=== PATIENT | male | born 1980 | race Caucasian/White ===

== ENCOUNTER 2019-11-30 12:38 | Outpatient (REF) | payer MEDICAID, SELFPAY | END 2019-11-30 12:39 | disposition home or self-care (01) | LOC: HO.LAB 12:38 | PROVIDERS: Visit Provider Internal Medicine | DX: Z20.828 Contact with and (suspected) exposure to other viral communicable diseases (principal) | CPT/HCPCS: 36415; 87635 ==

== ENCOUNTER 2020-01-14 13:40 | Emergency (ER) | payer MEDICAID, SELFPAY ==
[2020-01-14 14:29] VITALS: BP 132/75; PULSE 85; RESP 16; TEMP 36.6; O2SAT 99; BMI 25.7
--- NOTE | 2020-01-14 14:49 | ED.URI ---
HPI - URI/Sore Throat General Chief Complaint: Upper Respiratory Symptoms Stated Complaint: sore throat Time Seen by Provider: 01/14/20 14:11 History of Present Illness HPI Narrative: Patient complains of sore throat runny nose for 3 days, no chest pain no cough no difficulty breathing, he does have pain on swallowing but no difficulty swallowing no shortness of breath Related Data Previous Rx's Medication Instructions Recorded ibuprofen 600 mg PO Q6H PRN #14 tab 01/14/20 Allergies Allergy/AdvReac Type Severity Reaction Status Date / Time No Known Allergies Allergy Unverified 11/16/19 14:39 Review of Systems Review of Systems: Review of systems is positive for sore throat and runny nose There is no fever no chills no dizziness no confusion no headache no chest pain no shortness of breath no cough no sputum no nausea no vomiting no diarrhea no rash PMFSH Past Medical History Attestation statement: The following information was validated with the patient. PMFSH Narrative: No relevant medical history Source: nursing notes reviewed Social History Social History Advance Directives: No Advance Directives Information Provided: Yes Physical Exam Vital Signs: Vital Signs: Last Vital Signs Temp 97.9 F 01/14/20 14:29 Pulse 85 01/14/20 14:29 Resp 16 01/14/20 14:29 BP 132/75 01/14/20 14:29 Pulse Ox 99 01/14/20 14:29 Body Mass Index 25.7 Patient is comfortably reacts to and cooperative no acute distress A&O x3 The eyes are clear no redness no discharge the pharynx is clear no redness no exudate no swelling, uvula is midline the voice is normal and there is no drooling The neck there is no adenopathy, neck is supple Chest is clear to auscultation bilaterally no adventitious sounds full equal symmetric sounds Heart no murmurs Abdomen soft nontender Skin no rash Neuro no focal deficit MDM - URI/Sore Throat MDM Narrative Medical decision making narrative: Rapid strep was negative, patient is breathing and swallowing easily and is discharged with diagnosis viral pharyngitis Lab Data Attestation: I reviewed the patient's lab results. Discharge Plan Discharge Clinical Impression: Viral infection Patient Disposition: Home, Self-Care Additional Instructions: Rapid strep test was negative, we will call you if follow-up throat culture changes the results We will call you with a COVID testing results in 2-3 days Return any time any worse condition or concerns Prescriptions: New ibuprofen 600 mg tablet 600 mg PO Q6H PRN (Reason: fever or pain) Qty: 14 RF: 0 Stand Alone Forms: Work/School Release Interventions: ED Discharge Assessment Last Done: 01/14/20 15:35 Discharge Date/Time: 01/14/20 15:35
== END 2020-01-14 15:35 | disposition home or self-care (01) ==
PROVIDERS: Physician Assistant Medical; Emergency Provider Emergency Medicine
DX: B34.9 Viral infection, unspecified (principal); Z20.828 Contact with and (suspected) exposure to other viral communicable diseases
CPT/HCPCS: 87071; 87147; 87880; 99283; U0003

== ENCOUNTER 2020-01-27 14:15 | Emergency (ER) | payer MEDICAID, SELFPAY ==
[2020-01-27 14:58] VITALS: BP 131/62; PULSE 95; RESP 18; TEMP 38.3; O2SAT 98; BMI 26.6
--- NOTE | 2020-01-27 15:22 | ED_ITS ---
HPI - URI/Sore Throat General Chief Complaint: Upper Respiratory Symptoms Stated Complaint: SORETHROAT Time Seen by Provider: 01/27/20 15:15 Source: patient Mode of arrival: ambulatory Limitations: no limitations History of Present Illness HPI Narrative: 39 y/o male presenting with 5 days of body aches, fatigue, sore throat, and nausea and vomiting. He states he also has had a few epsiodes of diarrhea. He was seen here 1.5 weeks ago with his , they both tested negative for COVID. She was diagnosed with Strep but he was negative. He now has worsening sore throat. MD elicited complaint: sore throat Related Data Previous Rx's Medication Instructions Recorded ibuprofen 600 mg PO Q6H PRN #14 tab 01/14/20 amoxicillin 500 mg PO BID #20 tab 01/27/20 ondansetron HCl [Zofran] 4 mg PO Q8H PRN #10 tab 01/27/20 Allergies Allergy/AdvReac Type Severity Reaction Status Date / Time No Known Allergies Allergy Verified 01/27/20 14:58 Review of Systems Review of Systems: Constitutional: + Fever, + Chills ENT/Mouth: + sore throat, No Rhinorrhea, No Swallowing Difficulty Eyes: No Eye Pain, No Swelling, No Redness Cardiovascular: No Chest Pain, No SOB, No Orthopnea, No Edema Respiratory:+ Cough, No Sputum, No Wheezing, No dyspnea Gastrointestinal: + Nausea, No Vomiting, + Diarrhea, No abdominal Pain Genitourinary: No Dysuria, No Urinary Frequency, No Hematuria Musculoskeletal: No joint pain, + Myalgias Skin: No Skin Lesions, No rash Neuro: No Weakness, No Numbness, No Dizziness, + Headache Psych: No Anxiety/Panic, No Depression Heme/Lymph: No Bruising, No Lymphadenopathy Endocrine: No Polyuria, No Polydipsia PMFSH Past Medical History Attestation statement: The following information was validated with the patient. Medical History Healthy adolescent Healthy adult Social History Social History Advance Directives: No Advance Directives Information Provided: Yes Physical Exam Vital Signs: Vital Signs: Last Vital Signs Temp 100.9 F H 01/27/20 14:58 Pulse 95 01/27/20 14:58 Resp 18 01/27/20 14:58 BP 131/62 01/27/20 14:58 Pulse Ox 98 01/27/20 14:58 Body Mass Index 26.6 Appearance: Alert. Oriented X3. No acute distress. Eyes: Pupils equal, round and reactive to light. ENT: Pharynx normal. Neck: Normal inspection. Neck supple. CVS: Normal heart rate and rhythm. Pulses normal. Respiratory: No respiratory distress. Breath sounds normal. Abdomen: Soft and nontender. +BS x4 Skin: Skin warm and dry. Normal skin color. Normal skin turgor. No rashes. Extremities: No lower extremity edema. Neuro: Oriented X 3. No motor deficit. No sensory deficit. Course Course Course Narrative: 39 y/o male here with flu-like symptoms after exposure to his who had strep throat. Exam consistent with strep pharyngitis, will treat empirically given his exposure. He is also requesting additional COVID testing because of his other symptoms. He would like to be discharged and called with the results of the swabs. Stable for d/c. MDM - URI/Sore Throat Differential Diagnosis Differential diagnosis: Likely upper respiratory infection, croup, otitis media, sinusitis, viral infection, bronchitis, influenza and pharyngitis Critical Care Time Critical Care Time Critical Care Time: No Discharge Plan Discharge Clinical Impression: Pharyngitis Qualifiers: Pharyngitis/tonsillitis etiology: unspecified etiology Qualified Code(s): J02.9 - Acute pharyngitis, unspecified Patient Disposition: Home, Self-Care Instructions: Strep Throat (ED) Additional Instructions: You were tested for COVID-19, Influenza, RSV and Strep throat today. We will call you with the results this evening. You exam is consistent with Strep throat so you are being started on antibiotics. Continue to use warm salt water gargles several times per day for sore throat. Use over the counter Cepacol lozenges or Chloraseptic [place] as needed for sore throat. Get a new toothbrush and discard the one you have been using. Take Tylenol and/or Motrin as needed for pain and fevers. Stay hydrated and drink plenty of fluids. Follow up with your doctor on Wednesday. Prescriptions: New amoxicillin 500 mg tablet 500 mg PO BID Qty: 20 RF: 0 ondansetron HCl [Zofran] 4 mg tablet 4 mg PO Q8H PRN (Reason: nausea and vomiting) Qty: 10 RF: 0 No Action ibuprofen 600 mg tablet 600 mg PO Q6H PRN (Reason: fever or pain) Qty: 14 RF: 0 Stand Alone Forms: Work/School Release Interventions: ED Discharge Assessment Last Done: 01/27/20 16:24 Discharge Date/Time: 01/27/20 16:24
[2020-01-27] MEDS: Acetaminophen 325 MG TABLET 975 MG PO (16:08)
[2020-01-27 19:39] LABS: Influenza A PCR NEGATIVE (Negative); Influenza B PCR NEGATIVE (Negative); Resp Syncy Virus RNA Qual PCR NEGATIVE (Negative); SARS COV2 PCR INHOUSE NEGATIVE (Negative)
== END 2020-01-27 16:24 | disposition home or self-care (01) ==
PROVIDERS: Physician Assistant; Emergency Provider Internal Medicine
DX: J02.9 Acute pharyngitis, unspecified (principal); M79.10 Myalgia, unspecified site; R11.2 Nausea with vomiting, unspecified; Z79.899 Other long term (current) drug therapy; Z20.828 Contact with and (suspected) exposure to other viral communicable diseases
CPT/HCPCS: 0241U; 87071; 87147; 87880; 99283

== ENCOUNTER 2020-02-18 02:29 | Inpatient (IN) | payer OTHER, MEDICAID, SELFPAY ==
[2020-02-18] VITALS (9 sets, daily range): BP systolic 102–140; BP diastolic 50–91; PULSE 82–107; RESP 15–18; TEMP 36.1–37.2; O2SAT 97–99; BMI 25.1
--- NOTE | 2020-02-18 03:08 | ED.PSYCH ---
HPI - Psych General Chief Complaint: Psychiatric Symptoms <Michi Gaxiola MD - Last Filed: 02/18/20 06:02> Stated Complaint: Attempt of SI <Michi Gaxiola MD - Last Filed: 02/18/20 06:02> Time Seen by Provider: 02/18/20 03:08 <Michi Gaxiola MD - Last Filed: 02/18/20 06:02> Source: patient <Michi Gaxiola MD - Last Filed: 02/18/20 06:02> Mode of arrival: ambulatory <Michi Gaxiola MD - Last Filed: 02/18/20 06:02> Limitations: no limitations <Michi Gaxiola MD - Last Filed: 02/18/20 06:02> History of Present Illness HPI Narrative: Patient has history of depression for multiple reasons feeling more depressed wanted to kill himself by stabbing had knife with him when he came to the ER. <Michi Gaxiola MD - Last Filed: 02/18/20 06:02> MD complaint: suicidal ideation and feels depressed <Michi Gaxiola MD - Last Filed: 02/18/20 06:02> Duration: constant <Michi Gaxiola MD - Last Filed: 02/18/20 06:02> History of same: Yes <Michi Gaxiola MD - Last Filed: 02/18/20 06:02> Relieving factors: none <Michi Gaxiola MD - Last Filed: 02/18/20 06:02> Exacerbating factors: none <Michi Gaxiola MD - Last Filed: 02/18/20 06:02> Context: recent drug abuse (Cocaine) <Michi Gaxiola MD - Last Filed: 02/18/20 06:02> Associated psychiatric symptoms: none <Michi Gaxiola MD - Last Filed: 02/18/20 06:02> Treatments prior to arrival: none <Michi Gaxiola MD - Last Filed: 02/18/20 06:02> If self harm: admits thoughts of self harm and has plan <Michi Gaxiola MD - Last Filed: 02/18/20 06:02> Related Data Home Medications: Previous Rx's Medication Instructions Recorded ibuprofen 600 mg PO Q6H PRN #14 tab 01/14/20 amoxicillin 500 mg PO BID #20 tab 01/27/20 ondansetron HCl [Zofran] 4 mg PO Q8H PRN #10 tab 01/27/20 <Michi Gaxiola MD - Last Filed: 02/18/20 06:02> Allergies/Adverse Reactions: Allergies Allergy/AdvReac Type Severity Reaction Status Date / Time No Known Allergies Allergy Verified 01/27/20 14:58 <Michi Gaxiola MD - Last Filed: 02/18/20 06:02> Review of Systems Review of Systems: Constitutional : No Fever, No Chills ENT/Mouth : No Ear Pain, No Nasal Congestion, No sore throat Eyes: No Eye Pain, No Swelling, No Redness Cardiovascular : No Chest Pain, No SOB Respiratory : No Cough, No Sputum, No Dyspnea Gastrointestinal : No Nausea, No Vomiting, No Diarrhea, No Hematochezia, No Melena Genitourinary : No Dysuria, No Urinary Frequency, No Hematuria Musculoskeletal : No Myalgias Skin : No Skin Lesions, No rash Neuro : No Weakness, No Numbness, No Paresthesias, No Dizziness, No Headache Psych : positive Anxiety, positive Depression, positive SI Heme/Lymph: No Lymphadenopathy Endocrine : No Polyuria, No Polydipsia <Michi Gaxiola MD - Last Filed: 02/18/20 06:02> Yes all other systems are reviewed and are negative <Michi Gaxiola MD - Last Filed: 02/18/20 06:02> PMFSH Past Medical History Medical History: Medical History Healthy adolescent Healthy adult <Michi Gaxiola MD - Last Filed: 02/18/20 06:02> Social History Social History: Social History Advance Directives: No Advance Directives Information Provided: Yes <Michi Gaxiola MD - Last Filed: 02/18/20 06:02> Physical Exam Vital Signs: Vital Signs: Last Vital Signs Temp 97.0 F 02/18/20 09:56 Pulse 88 02/18/20 09:56 Resp 16 02/18/20 12:00 BP 102/81 02/18/20 09:56 Pulse Ox 99 02/18/20 09:56 Body Mass Index 25.1 <Michi Gaxiola MD - Last Filed: 02/18/20 06:02> Vital Signs: Last Vital Signs Temp 97.0 F 02/18/20 09:56 Pulse 88 02/18/20 09:56 Resp 16 02/18/20 12:00 BP 102/81 02/18/20 09:56 Pulse Ox 99 02/18/20 09:56 Body Mass Index 25.1 <PIERRE Berg - Last Filed: 02/18/20 12:50> Appearance: Alert. Oriented X3. No acute distress. Anxious Eyes: Pupils equal, round and reactive to light. ENT: Pharynx normal. Neck: Normal inspection. Neck supple. CVS: Normal heart rate and rhythm. Pulses normal. Respiratory: No respiratory distress. Breath sounds normal. Abdomen: Soft and nontender. Bowel sounds are present, no mass palpable, no CVA tenderness Skin: Skin warm and dry. Normal skin color. Normal skin turgor. Extremities: No lower extremity edema. Psych: Anxious with depression no suicidal ideation/homicidal ideation at this time no hallucinations delusions Neuro: Oriented X 3. No motor deficit. No sensory deficit. <Michi Gaxiola MD - Last Filed: 02/18/20 06:02> Course Course Course Narrative: 39 y/o male presenting with SI and a clear plan. Seen by N this morning - he will be an inpatient bed search. COVID negative. Utox +cocaine. Labs were not performed. Will order now. <PIERRE Berg - Last Filed: 02/18/20 12:50> MDM - Psych MDM Narrative Medical decision making narrative: Patient with depression with suicidal ideation will consult therapist for psych evaluation <Michi Gaxiola MD - Last Filed: 02/18/20 06:02> Differential Diagnosis Differential diagnosis: Likely acute psychosis, suicidal ideation, bipolar disorder, depression, drug-induced psychotic disorder, substance abuse and schizoaffective disorder <PIERRE Berg - Last Filed: 02/18/20 12:50> Restraints Face to Face Assessment: Face to Face Assessment: Current Situation: After assessment of the patient, a review of the pertinent medical record and a discussion with nursing staff, I feel the patient requires a restrain intervention. Reaction To: [] Medical Condition: [] Behavioral State: [] Continued Need: [] <Michi Gaxiola MD - Last Filed: 02/18/20 06:02> Lab Data Attestation: I reviewed the patient's lab results. <Michi Gaxiola MD - Last Filed: 02/18/20 06:02> Labs: Lab Results 02/18/20 02/18/20 Range/Units 03:19 03:19 Urine Opiates Screen Not Detected (Not Detect) Ur Barbiturates Screen Not Detected (Not Detect) Ur Phencyclidine Scrn Not Detected (Not Detect) Ur Amphetamines Screen Not Detected (Not Detect) U Benzodiazepines Scrn Not Detected (Not Detect) Urine Cocaine Screen POSITIVE H (Not Detect) U Marijuana (THC) Screen Not Detected (Not Detect) COVID-19 (ZAC) Negative (Negative) COVID-19 Clin Com See Note <Michi Gaxiola MD - Last Filed: 02/18/20 06:02> Lab Results 02/18/20 12 Range/Units 03:19 03:19 Urine Opiates Screen Not Detected (Not Detect) Ur Barbiturates Screen Not Detected (Not Detect) Ur Phencyclidine Scrn Not Detected (Not Detect) Ur Amphetamines Screen Not Detected (Not Detect) U Benzodiazepines Scrn Not Detected (Not Detect) Urine Cocaine Screen POSITIVE H (Not Detect) U Marijuana (THC) Screen Not Detected (Not Detect) COVID-19 (ZAC) Negative (Negative) COVID-19 Clin Com See Note <PIERRE Berg - Last Filed: 02/18/20 12:50> Discharge Plan Discharge Clinical Impression: Suicidal ideation Depression Qualifiers: Depression Type: major depressive disorder Major depression recurrence: recurrent Active/Remission status: currently active Major depression episode severity: severe Psychotic features: without psychotic features Qualified Code(s): F33.2 - Major depressive disorder, recurrent severe without psychotic features <Michi Gaxiola MD - Last Filed: 02/18/20 06:02> Prescriptions: No Action ibuprofen 600 mg tablet 600 mg PO Q6H PRN (Reason: fever or pain) Qty: 14 RF: 0 amoxicillin 500 mg tablet 500 mg PO BID Qty: 20 RF: 0 ondansetron HCl [Zofran] 4 mg tablet 4 mg PO Q8H PRN (Reason: nausea and vomiting) Qty: 10 RF: 0 <Michi Gaxiola MD - Last Filed: 02/18/20 06:02>
[2020-02-18] MEDS: LORazepam 1 MG TABLET 2 MG PO (03:14)
--- NOTE | 2020-02-18 03:20 | PC.NURSE ---
Patient just got seen by provider, ordered Ativan 2 mg/administered. N faxed/called/spoke with Arleen/confirmed receipt of referral, no clinician overnight, patient snacked and refreshed, swabbed for covid/sent to lab/pending result, currently in bed resting, will continue to monitor.
[2020-02-18 03:36] LABS: Amphetamine Screen Urine Not Detected (Not Detect); Barbiturates, Urine Not Detected (Not Detect); Benzodiazepines Screen Urine Not Detected (Not Detect); Cannabinoid Screen Urine Not Detected (Not Detect); Cocaine Screen Urine POSITIVE (Not Detect); Opiate Screen Urine Not Detected (Not Detect); Phencyclidine Screen Urine Not Detected (Not Detect)
[2020-02-18 03:39] LABS: COVID-19 Test Negative (Negative)
--- NOTE | 2020-02-18 07:20 | PC.NURSE ---
Report received from BO Hamilton. Pt resting, resp unlabored.
--- NOTE | 2020-02-18 08:50 | PC.NURSE ---
Pt resting, resp unlabored.
--- NOTE | 2020-02-18 11:51 | PC.NURSE ---
Pt resting, resp unlabored.
[2020-02-18 13:14] LABS: Glucose Urine UA NEG (NEG); Leukocyte Esterase Urine NEG (NEG); Nitrite Urine NEG (NEG); PH 5.5 (5.0-8.0); Specific Gravity - Urine >= 1.030 (1.005-1.025); Urine Blood TRACE (NEG); Urine Ketones 40 MG/DL (NEG); Urine Protein TRACE MG/DL (NEG-TRACE)
[2020-02-18 13:16] LABS: Basophils Percent Auto 0.2 % (0-2); Eosinophils Absolute Auto 0.4 X10*3/uL (0.0-0.4); Eosinophils Percent Auto 4.2 % (0-4); Hemoglobin 13.7 g/dl (14.0-18.0); Imm Gran Abs Auto 0.03 X10*3/uL (0.00-0.03); Imm Gran Pct Auto 0.3 % (0.0-0.4); Lymphocytes Absolute Auto 2.8 X10*3/uL (1.2-4.9); Lymphocytes Percent Auto 28.9 % (20-40); Mean Corpuscular HGB Conc 34.3 g/dl (31.0-36.0); Mean Corpuscular Hemoglobin 30.2 pg (27.0-33.0); Mean Corpuscular Volume 88.3 fL (80-98); Mean Platelet Volume 9.8 fL (9.4-12.4); Monocytes Absolute Auto 1.4 X10*3/uL (0.1-1.2); Monocytes Percent Auto 14.9 % (2-11); Neutrophils Percent Auto 51.5 % (45-73); Platelet Count 392 X10*3/uL (160-400); Red Blood Count 4.53 X10*6/uL (4.60-5.80); Red Cell Distribution Width 13.6 % (11.0-16.0); White Blood Count 9.7 X10*3/uL (4.8-10.8)
[2020-02-18 13:18] LABS: MANUAL DIFF FLAG NO
[2020-02-18 13:19] LABS: Appearance Urine CLEAR; Color Urine DARK YELLOW
[2020-02-18 13:34] LABS: Squamous Epithelial Cell Urine TRACE /LPF; WBC Urine 0-2 /HPF (0-4)
[2020-02-18 13:39] LABS: Alanine Aminotransferase 30 U/L (0-40); Albumin Level 4.1 g/dL (3.5-5.0); Alkaline Phosphatase 90 U/L (39-117); Anion Gap 11 (12-20); Aspartate Amino Transferase 40 U/L (5-37); Bilirubin Direct 0.8 mg/dL (0.0-0.5); Blood Urea Nitrogen 19 mg/dL (9-16); Calcium 9.2 mg/dL (8.4-10.2); Carbon Dioxide 29 mmol/L (22-29); Chloride 103 mmol/L (96-108); Creatinine Clr Calc Pharmacy 103.5; Estimated Glomerular Filt Rate > 60; Glucose Random 91 mg/dL (60-115); Potassium 3.9 mmol/l (3.3-5.1); Sodium 139 mmol/L (135-145); Total Protein 7.1 g/dL (6.5-8.0)
--- NOTE | 2020-02-18 16:30 | ECG_ITS ---
Test Reason : MEDCLEAR Blood Pressure : / mmHG Vent. Rate : 084 BPM Atrial Rate : 084 BPM P-R Int : 146 ms QRS Dur : 102 ms QT Int : 388 ms P-R-T Axes : 069 -07 036 degrees QTc Int : 458 ms Normal sinus rhythm RSR' or QR pattern in V1 suggests right ventricular conduction delay Borderline ECG When compared with ECG of 27-FEB-2019 09:09, RSR' pattern in V1 is now Present Referred By: Generic ED Physician Electronically Signed By:MANUELA COREA MD
--- NOTE | 2020-02-18 17:16 | PC.NURSE ---
Pt resting, resp unlabored
--- NOTE | 2020-02-18 19:06 | PC.NURSE ---
Patient in bed, awake, seems resting quietly, watching TV, per report patient slept most part of the day. Appetite good. Hydrating well, in good behavioral control, will continue to monitor.
[2020-02-19 00:26] VITALS: BP 115/72; PULSE 86; RESP 18; TEMP 36.6; O2SAT 98
[2020-02-19 06:50] VITALS: BP 110/61; PULSE 86; RESP 18; TEMP 36.3; O2SAT 100
--- NOTE | 2020-02-19 07:03 | PC.NURSE ---
Report received. Pt currently sleeping, respirations even and unlabored, in no apparent distress. Pt is inpatient bedsearch.
[2020-02-19 09:25] VITALS: BP 94/67; PULSE 66; RESP 16; TEMP 36.6; O2SAT 98
[2020-02-19 16:20] VITALS: BP 132/62; PULSE 69; RESP 18; TEMP 36.6; O2SAT 98
[2020-02-19] MEDS: LORazepam 1 MG TABLET 2 MG PO (16:20)
--- NOTE | 2020-02-19 19:01 | PC.NURSE ---
Report received. Pt asleep at current, no signs of distress, respirations unlabored. Continues to be a section 12 bed search.
--- NOTE | 2020-02-19 23:36 | PC.NURSE ---
Report received. PT is walking around the unit. Calm and cooperative. Inpatient bed search in progress.
--- NOTE | 2020-02-20 | ECG_ITS ---
Test Reason : CP Blood Pressure : / mmHG Vent. Rate : 065 BPM Atrial Rate : 065 BPM P-R Int : 144 ms QRS Dur : 108 ms QT Int : 406 ms P-R-T Axes : 050 018 023 degrees QTc Int : 422 ms Normal sinus rhythm Normal ECG When compared with ECG of 18-FEB-2020 18:34, RSR' pattern in V1 is no longer Present Referred By: Sarabjit Morelos Electronically Signed By:MANUELA COREA MD
[2020-02-20 01:19] VITALS: BP 147/84; PULSE 83; RESP 18; TEMP 36.8; O2SAT 99
--- NOTE | 2020-02-20 08:20 | PC.NURSE ---
faxed to [facility], waiting to hear back about bed placement
[2020-02-20 09:21] LABS: Alanine Aminotransferase 27 U/L (0-40); Albumin Level 3.6 g/dL (3.5-5.0); Alkaline Phosphatase 78 U/L (39-117); Aspartate Amino Transferase 20 U/L (5-37); Bilirubin Direct 0.3 mg/dL (0.0-0.5); Bilirubin Total 0.7 mg/dL (0.0-1.0); Total Protein 6.5 g/dL (6.5-8.0)
[2020-02-20 10:20] VITALS: BP 103/56; PULSE 74; RESP 14; TEMP 36.7; O2SAT 98
--- NOTE | 2020-02-20 11:12 | PC.NURSE ---
Report received from BO Melvin. Patient asleep on bed at this time. Respirations regular and even. Skin PWD. No distress noted. Patient is inpatient bed search, awaiting placement. Patient aware of plan of care. Will continue to monitor.
--- NOTE | 2020-02-20 11:37 | PC.NURSE ---
Notified by [facility] that patient would be going up later today.
--- NOTE | 2020-02-20 13:35 | PC.NURSE ---
Patient becoming agitated stating I want to go upstairs within the next thirty minutes or else we will do this the hard way . Tried to redirect and talk with patient. Patient remains agitated and pacing in front of nurses station. Made provider aware. Offered patient PO Ativan, patient refusing.
--- NOTE | 2020-02-20 13:50 | PC.NURSE ---
Addendum entered by Elisa Salazar 02/20/20 14:19: Contacted [facility] to see if there was any way to escalate admission time. [facility] unable to admit sooner as they are awaiting a discharge. Original Note: Made security aware of patient agitation, updated provider that patient refusing PO medication. Patient continues to pace and making threats to trash this place but as of right now remains in control of behavior and conversating with security. Will continue to closely monitor situation.
--- NOTE | 2020-02-20 15:29 | PC.NURSE ---
Patient is in milieu talking with security. calm and quiet at this time, per report patient is accepted to [facility], will continue to monitor.
--- NOTE | 2020-02-20 16:07 | PC.NURSE ---
Patient got agitated over his admission to [facility], patient wanted to go home, currently in POD with security, expressing his grievances for being too long in the POD, seems in behavioral control, will continue to monitor.
--- NOTE | 2020-02-20 16:22 | MHC.CARE ---
CARE team notified by [facility] nurse that pt is refusing voluntary admission to , and requesting that an MSU be completed to determine whether pt continues to meet IPLOC and is a candidate for an involuntary admission. [facility] kirk was contacted requesting an MSU, which was unable to be done at this time. This policy writer typist met with pt to discuss his initial presentation to the ED and precipitating factors contributing to his endorsement of active suicidal ideation with plan, means, and intent. Pt shared that he has been experiencing increased stress related to covid-19, challenges with employment, and housing instability. Pt denied experiencing thoughts of suicide or wanting to at this time. Pt did continue to endorse experiencing visual hallucinations (seeing shadows) and denied experiencing auditory hallucinations. This policy writer typist spoke with ED physician and provider re: pt's refusal for admission, uncertainty that pt is a candidate for involuntary admission, and possibility of discharging pt from ED as he has been requesting. Request denied and plan continues to be for inpt psych admission. This policy writer typist informed pt that the plan for admission will not change, to which pt responded negatively. Pt threw empty package of crackers, attempted to slam the door to his room in [facility], stripped off his hospital attire and began to yell at posture at staff in his underwear. Security was contacted and a code assist was called to de-escalate pt. Once de-escalated, this policy writer typist spoke with pt about admission and pt is agreeable at this time. working on expediting the admission process at this time.
[2020-02-20] MEDS: LORazepam 1 MG TABLET 2 MG PO (16:23)
--- NOTE | 2020-02-20 17:23 | PC.NURSE ---
Patient agreed to take Ativan 2 mg, administered as ordered, nurse to nurse report completed with , awaiting transfer to currently, will continue to monitor.
[2020-02-20 18:00] VITALS: BP 116/78; PULSE 75; TEMP 36.6
--- NOTE | 2020-02-20 23:03 | PC.ADMIT ---
Patient is a 39 year old single bilingual male admitted as a CV admission to [facility] from the [facility]. He was evaluated by N and deemed in need of IPLOC secondary to depression, SI, poor sleep and substance abuse. Patient has also recently been living in a tent but said to this newspaper writer during his admission that he lived with his mother. Patient was pleasant and cooperative with his admission and signed all of the paperwork and answered questions. He minimized his reason for being here and said he was surprised that he was admitted as an inpatient. Patient did become irritable when this newspaper writer said the medication orders were not in. He walked to his room and said out loud I'm going to go lie down on my bed now so don't wake my ass up . Dr. Morelos put in orders for prn medications. Patient will be on 15 minute safety checks.
[2020-02-21 06:40] VITALS: BP 102/59; PULSE 61; RESP 16; TEMP 37.1; O2SAT 99
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
== END 2020-02-21 15:08 | disposition home or self-care (01) | DRG 754 ==
LOC: HO.ED 02-20 16:48 → HO.PM5 02-20 17:33
PROVIDERS: Physician Assistant; Admitting Provider Psychiatry & Neurology Psychiatry; Emergency Provider Internal Medicine; Visit Provider Psychiatry & Neurology Psychiatry
DX: F32.9 Major depressive disorder, single episode, unspecified (principal); R45.851 Suicidal ideations; F41.9 Anxiety disorder, unspecified; F17.210 Nicotine dependence, cigarettes, uncomplicated; Z20.828 Contact with and (suspected) exposure to other viral communicable diseases; Z71.6 Tobacco abuse counseling
CPT/HCPCS: 36415; 80048; 80076; 80307; 81001; 85025; 87635; 90792; 93005; 99239; 99285

== ENCOUNTER 2020-04-29 10:05 | Outpatient (REF) | payer MEDICAID, SELFPAY | END 2020-04-29 10:06 | disposition home or self-care (01) | LOC: HO.LAB 10:05 | PROVIDERS: Visit Provider Internal Medicine | DX: Z20.822 Contact with and (suspected) exposure to COVID-19 (principal) | CPT/HCPCS: 36415; C9803; U0003; U0005 ==

== ENCOUNTER 2020-06-03 10:13 | Outpatient (REF) | payer MEDICAID, SELFPAY ==
[2020-06-03 12:59] LABS: SARS COV2 PCR INHOUSE NEGATIVE (Negative)
== END 2020-06-03 10:14 | disposition home or self-care (01) ==
LOC: HO.LAB 10:13
PROVIDERS: Visit Provider Internal Medicine
DX: Z20.822 Contact with and (suspected) exposure to COVID-19 (principal)
CPT/HCPCS: C9803; U0003

== ENCOUNTER 2020-06-25 14:20 | Inpatient (IN) | payer OTHER, SELFPAY ==
[2020-06-25 14:26] VITALS: BP 148/86; PULSE 94; RESP 18; TEMP 36.6; O2SAT 100; BMI 23.1
--- NOTE | 2020-06-25 16:48 | ED.GENADULT ---
HPI - General Adult General Chief complaint: Psychiatric Symptoms Stated complaint: crisis Time Seen by Provider: 06/25/20 15:47 Source: patient Mode of arrival: ambulatory History of Present Illness HPI narrative: 39-year-old male with a past medical history of major depressive disorder, presenting to the ED complaining of increased depression, SI and HI with a vague plan x a week. Reports increased aggression, and got into argument with PD last night, denies injury/trauma. Admits loss family member about a month ago, and found out his children are not biologically his this week. Reports cocaine use, denies use in the past 48 hours, denies EtOH. Denies fever, cough, CP/SOB, abdominal pain, nausea/vomiting Onset (ago): day(s) Related Data Home Medications Medication Instructions Recorded Confirmed No Known Home Meds 02/20/20 02/20/20 Allergies Allergy/AdvReac Type Severity Reaction Status Date / Time No Known Allergies Allergy Verified 01/27/20 14:58 Review of Systems Review of Systems: Constitutional: No Fever, No Chills Cardiovascular: No Chest Pain, No SOB Respiratory: No Cough, No Dyspnea Gastrointestinal: No Nausea, No Vomiting, No Abdominal pain Genitourinary: No Dysuria Musculoskeletal: No joint pain, No Myalgias Skin: No Skin Lesions, No rash Neuro: No Weakness, No Headache Psych: No Anxiety/Panic, +Depression, + SI/HI Yes all other systems are reviewed and are negative [facility] Past Medical History Attestation statement: The following information was validated with the patient. Medical History Healthy adolescent Healthy adult Social History Social History Household Members: Family Housing: Apartment Smoking Status: Light tobacco smoker Tobacco Type: Cigarette Packs Per Day: 0.01 Cigarettes Per Day: 0.2 Years Smoked: 27 Substance Use Type: Amphetamines, Crack/Cocaine and Painkillers Advance Directives: No Advance Directives Information Provided: No service: No Sexual orientation: Straight/Heterosexual Physical Exam Vital Signs: Vital Signs: Last Vital Signs Temp 97.8 F 06/25/20 14:26 Pulse 94 06/25/20 14:26 Resp 18 06/25/20 14:26 BP 148/86 H 06/25/20 14:26 Pulse Ox 100 06/25/20 14:26 Body Mass Index 23.1 Const: General: cooperative, healthy appearing, well developed, alert and awake Orientation/consciousness: patient oriented x3 Limitations: no limitations HENMT: Head: Yes normal to inspection Ears: hearing grossly normal bilaterally General nose exam: Normal external nose present Face and sinus: Yes normal facial exam Eyes: General: appearance normal, both eyes and all related structures Pupils: Equal, round and reactive pupils present EOM: EOMs intact bilaterally Neck: Neck: Yes normal visual inspection and Yes no meningeal signs Resp: Effort & Inspection: normal respiratory effort Auscultation: clear to auscultation bilaterally, no rhonchi and no wheezes Cardio: Rate: regular rate Heart sounds: S1 normal heart sound present and S2 normal heart sound present GI: Inspection: Yes normal to inspection Palpation (GI): Soft to palpation, nontender, no guarding and not rigid Skin: Rashes: no rashes Wounds: no wounds Neuro: General: patient oriented x3 and no meningeal signs Cranial nerves: Yes Equal, round and reactive pupils present Extrem: General: Yes normal to inspection Psych: Affect: Sad affect present Thought content: Suicidality present, Homicidality present and Depressive thoughts present Course Course Course Narrative: -1700--ED care transferred to YENI perez pending labs and N consult Medical Decision Making [facility] Narrative Medical decision making narrative: 39-year-old male with a past medical history of major depressive disorder, presenting to the ED complaining of increased depression, SI and HI with a vague plan x a week. On exam VS as, NAD/well-appearing. Will rule out organic causes with labs. Plan: Labs, BHN Consult Lab Data Result diagrams: 06/25/20 16:46 06/25/20 16:46 Discharge Plan Discharge Prescriptions: No Action No Known Home Meds RF: 0
[2020-06-25 17:04] LABS: MANUAL DIFF FLAG NO
[2020-06-25 17:11] LABS: Basophils Percent Auto 0.3 % (0-2); Eosinophils Absolute Auto 0.5 X10*3/uL (0.0-0.4); Eosinophils Percent Auto 4.9 % (0-4); Hematocrit 43.8 % (42-52); Imm Gran Abs Auto 0.03 X10*3/uL (0.00-0.03); Imm Gran Pct Auto 0.3 % (0.0-0.4); Lymphocytes Absolute Auto 2.5 X10*3/uL (1.2-4.9); Mean Corpuscular HGB Conc 34.2 g/dl (31.0-36.0); Mean Corpuscular Hemoglobin 30.7 pg (27.0-33.0); Mean Corpuscular Volume 89.6 fL (80-98); Mean Platelet Volume 9.8 fL (9.4-12.4); Monocytes Absolute Auto 0.6 X10*3/uL (0.1-1.2); Monocytes Percent Auto 6.4 % (2-11); Neutrophils Percent Auto 62.1 % (45-73); Platelet Count 476 X10*3/uL (160-400); Red Blood Count 4.89 X10*6/uL (4.60-5.80); White Blood Count 9.7 X10*3/uL (4.8-10.8)
[2020-06-25 17:35] LABS: Alanine Aminotransferase 35 U/L (0-40); Albumin Level 4.1 g/dL (3.5-5.0); Alkaline Phosphatase 96 U/L (39-117); Anion Gap 12 (12-20); Aspartate Amino Transferase 26 U/L (5-37); Bilirubin Direct 0.4 mg/dL (0.0-0.5); Bilirubin Total 0.8 mg/dL (0.0-1.0); Blood Urea Nitrogen 11 mg/dL (9-16); Calcium 9.6 mg/dL (8.4-10.2); Carbon Dioxide 24 mmol/L (22-29); Chloride 108 mmol/L (96-108); Creatinine Clr Calc Pharmacy 95.7; Estimated Glomerular Filt Rate > 60; Glucose Random 164 mg/dL (60-115); Potassium 4.2 mmol/L (3.3-5.1); Sodium 140 mmol/L (135-145); Total Protein 7.2 g/dL (6.5-8.0)
--- NOTE | 2020-06-25 18:09 | PC.NURSE ---
pt attempting to leave hospital. pt out to sidewalk outside ed. staff and security with pt. pt ambulated independently with steady gait back into er. pt eating dinner at this time calm and cooperative.
--- NOTE | 2020-06-25 18:34 | PC.NURSE ---
faxed to jenelle
[2020-06-25 19:42] VITALS: BP 123/83; PULSE 90; RESP 18; TEMP 36.7; O2SAT 98
--- NOTE | 2020-06-25 20:41 | PC.NURSE ---
PT ambulated to pod was steady gait. Calm and cooperative. SILVANON faxed and called per Ania SORIANO. PT asking for someone to examine an infection in his thumb.
[2020-06-25 20:59] LABS: Amphetamine Screen Urine Not Detected (Not Detect); Barbiturates, Urine Not Detected (Not Detect); Benzodiazepines Screen Urine Not Detected (Not Detect); Cannabinoid Screen Urine Not Detected (Not Detect); Cocaine Screen Urine POSITIVE (Not Detect); Opiate Screen Urine Not Detected (Not Detect); Phencyclidine Screen Urine Not Detected (Not Detect)
--- NOTE | 2020-06-25 23:48 | PC.NURSE ---
BHN at bedside, patient seems engaged, will continue to monitor
[2020-06-26 00:36] LABS: COVID-19 Test Negative (Negative); IDNOW Serial# 9DD0AD1C
[2020-06-26] MEDS: diphenhydrAMINE HCL 25 MG TABLET 50 MG PO (00:38)
[2020-06-26] MEDS: LORazepam 1 MG TABLET 2 MG PO (00:38)
--- NOTE | 2020-06-26 00:43 | PC.NURSE ---
SILVANON completed assessment, patient very compliant, disposition section 12 inpatient bed search, patient and provider aware, psych consult ordered for tomorrow, patient reported being anxious and trouble going to sleep, provider notified Ativan 2 mg po and Benadryl 50 mg PO administered as ordered, pending effect, will continue to monitor
[2020-06-26 00:57] VITALS: BP 135/90; PULSE 85; RESP 18; TEMP 36.3; O2SAT 98
--- NOTE | 2020-06-26 06:58 | PC.NURSE ---
Report recieved. PT currently sleeping, respirations even and unlabored, in no apparent distress. PT is inpatient bedsearch.
[2020-06-26 09:26] VITALS: BP 118/69; PULSE 69; RESP 15; TEMP 36.6; O2SAT 100
--- NOTE | 2020-06-26 14:24 | PC.NURSE ---
psychiatrist in to see pt.
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
[2020-06-26] MEDS: OLANZapine 5 MG TABLET PO (15:20)
--- NOTE | 2020-06-26 17:09 | PC.NURSE ---
Pt resting comfortably in bed at current, no complaints at this time, calm
--- NOTE | 2020-06-26 17:30 | PC.NURSE ---
Valeria, nurse life care planner from [facility] through [facility] called looking for update on pt's disposition. Contact #[phone]
[2020-06-26] MEDS: Amoxicillin/Potassium Clav 875 MG TABLET PO (20:20)
[2020-06-27 06:21] VITALS: BP 98/57; PULSE 62; RESP 17; TEMP 36.6; O2SAT 97
[2020-06-27] MEDS: OLANZapine 5 MG TABLET PO ×2 (09:55→20:07)
[2020-06-27] MEDS: Amoxicillin/Potassium Clav 875 MG TABLET PO ×2 (09:55→20:07)
[2020-06-27] MEDS: Sertraline HCL 25 MG TABLET PO (09:55)
--- NOTE | 2020-06-27 15:53 | PC.NURSE ---
Report received, pt resting in bed at current, no complaints at this time, calm.
--- NOTE | 2020-06-27 18:25 | PC.NURSE ---
Pt asleep at current. No signs of distress. RR even and unlabored.
[2020-06-27 20:50] VITALS: BP 115/49; PULSE 86; RESP 16; TEMP 37.2; O2SAT 98
[2020-06-28 06:28] VITALS: BP 100/51; PULSE 75; RESP 16; TEMP 36.9; O2SAT 99
--- NOTE | 2020-06-28 07:26 | PC.NURSE ---
Report received from BO Hamilton. Pt resting, resp unlabored.
[2020-06-28] MEDS: OLANZapine 5 MG TABLET PO (09:15)
[2020-06-28] MEDS: Amoxicillin/Potassium Clav 875 MG TABLET PO ×2 (09:16→20:22)
[2020-06-28] MEDS: Sertraline HCL 25 MG TABLET PO (09:16)
--- NOTE | 2020-06-28 09:19 | PC.NURSE ---
Pt resting, easily awakened. Reports that he slept last night and feels 'all right' today. Right hand w/ swelling, medicated as ordered. No concerns reported.
[2020-06-28 09:22] VITALS: BP 102/64; PULSE 72; RESP 20; TEMP 37.2; O2SAT 98
--- NOTE | 2020-06-28 12:23 | ECG_ITS ---
Test Reason : MEDCLEARANCE Blood Pressure : / mmHG Vent. Rate : 073 BPM Atrial Rate : 073 BPM P-R Int : 126 ms QRS Dur : 100 ms QT Int : 382 ms P-R-T Axes : 045 000 035 degrees QTc Int : 420 ms Normal sinus rhythm Normal ECG When compared with ECG of 21-FEB-2020 09:47, T wave amplitude has increased in Lateral leads Referred By: Generic ED Physician Electronically Signed By:MANUELA COREA MD
--- NOTE | 2020-06-28 12:24 | PC.NURSE ---
Report given to BO Guzman on M5.
--- NOTE | 2020-06-28 12:33 | PC.NURSE ---
EKG completed, Megan SORIANO [facility] notified.
[2020-06-28 14:00] VITALS: RESP 20
--- NOTE | 2020-06-28 14:33 | PC.NURSE ---
CARE team in to transfer pt to [facility]. Pt aware, and in agreement w/ plan, cooperative w/ care.
[2020-06-28 18:00] VITALS: BP 152/88; PULSE 84; TEMP 36.6
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
[2020-06-29 06:30] VITALS: BP 116/59; PULSE 62; RESP 16; TEMP 37.3; O2SAT 98
[2020-06-29] MEDS: OLANZapine 5 MG TABLET PO (09:07)
[2020-06-29] MEDS: Amoxicillin/Potassium Clav 875 MG TABLET PO ×2 (09:07→20:34)
[2020-06-29] MEDS: Sertraline HCL 25 MG TABLET PO (09:07)
[2020-06-29 10:29] LABS: Estimated Average Glucose 91 mg/dL; Hemoglobin A1c % 4.8 %
[2020-06-29 10:30] LABS: Cholesterol 164 mg/dL; HDL Cholesterol 45 mg/dL; LDL Cholesterol Calculated 98 mg/dl; Triglycerides 105 mg/dL
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
[2020-06-29 16:21] VITALS: BP 156/81; PULSE 86; TEMP 37.2
[2020-06-30 06:00] VITALS: BP 109/67; PULSE 63; RESP 18; TEMP 37; O2SAT 98
[2020-06-30] MEDS: Sertraline HCL 25 MG TABLET PO (08:42)
[2020-06-30] MEDS: Amoxicillin/Potassium Clav 875 MG TABLET PO ×2 (08:42→20:57)
[2020-06-30] MEDS: OLANZapine 5 MG TABLET PO (08:42)
--- NOTE | 2020-06-30 09:06 | HO.PSYCHPN ---
Subjective Subjective Date of Service: 07/01/20 Reason For Visit: SI/HI Interim History: Chart reviewed; case discussed with team. Vitals reviewed: WNL pt sleeping on approach; he woke up to tell designer writer that he is doing well, has no complaints and does not need anything. Pt thanks designer writer for inquiring and says he'd like to go back to sleep nursing reports patient has been in good behavioral control even when staff lost cloths which even ended up being worn by another patient. Staff said pt demonstrated significantly improved coping skills than on prior admissions. Mental Status Exam Mental Status Exam Narrative: Appearance: Appropriate Patient Orientation: Person, Place, Time and Situation Level of Consciousness: Awake and Appropriate Patient Behavior: Appropriate, Cooperative and Good Eye Contact (adequate) Mood Description: Depressed Affect Description: Constricted and Depressed Ability to Follow Directions: Fair Speech Pattern: Clear and Appropriate Thought Process: Intact, Goal Oriented and Linear Thought Content: denies SI/HI; thinking about stability; no AVH Judgement/insight: fair Diagnostics Vital Signs (24Hr): Vital Signs - 24 hr 06/29/20 16:21 06/30/20 06:00 Temperature 99.0 F 98.6 F Pulse Rate 86 63 Respiratory Rate 18 Blood Pressure 156/81 H 109/67 Pulse Oximetry 98 Body Mass Index 23.1 Labs Results: 06/25/20 16:46 06/25/20 16:46 Labs: Laboratory Results - last 48 hr 06/29/20 06/29/20 09:40 09:40 Estimat Average Glucose 91 Hemoglobin A1c % 4.8 Triglycerides 105 Cholesterol 164 LDL Cholesterol, Calc 98 HDL Cholesterol 45 Medications Medications Current Medications Generic Name Dose Route Start Last Admin Trade Name Martinq PRN Reason Stop Dose Admin Acetaminophen 650 mg 06/28/20 15:53 Acetaminophen 325 Mg Tablet PO Q6H PRN Headache/Pain Mild Scale (1-3) Al Hydroxide/Mg Hydroxide 30 ml 06/28/20 15:53 Magnesium Hydrox/Alum Hydrox 30 Ml Oral.Susp PO Q6H PRN Heartburn/Nausea Amoxicillin/Clavulanate Potassium 875 mg 06/26/20 21:00 06/30/20 08:42 Amoxicillin/Potassium Clav 875 Mg Tablet PO 07/06/20 20:59 875 mg BID SON Administration Cyclobenzaprine HCl 10 mg 06/26/20 14:56 Cyclobenzaprine Hcl 10 Mg Tablet PO BID PRN muscle cramps Diphenhydramine HCl 50 mg 06/28/20 15:53 Diphenhydramine Hcl 25 Mg Tablet PO Q4H PRN agitation Haloperidol 5 mg 06/28/20 15:53 Haloperidol 5 Mg Tablet PO Q4H PRN agitation Hydroxyzine HCl 50 mg 06/28/20 15:53 Hydroxyzine Hcl 25 Mg Tablet PO RQ4H PRN Anxiety Lorazepam 2 mg 06/28/20 15:53 Lorazepam 1 Mg Tablet PO Q4H PRN agitation Magnesium Hydroxide 30 ml 06/28/20 15:53 Milk Of Magnesia 30 Ml Oral.Susp PO DAILY PRN Constipation Nicotine 21 mg 06/28/20 15:53 Nicotine 21 Mg Patch.Td24 TRANSDERMA DAILY PRN Nicotine Cessation Nicotine Polacrilex 4 mg 06/28/20 15:53 Nicotine Polacrilex 2 Mg Gum BUCCAL Q2H PRN Nicotine Cravings Olanzapine 5 mg 06/26/20 14:53 06/27/20 20:07 Olanzapine 5 Mg Tablet PO 5 mg DAILY PRN Administration agitation Olanzapine 5 mg 06/26/20 15:00 06/30/20 08:42 Olanzapine 5 Mg Tablet PO 5 mg DAILY SON Administration Sertraline HCl 25 mg 06/27/20 09:00 06/30/20 08:42 Sertraline Hcl 25 Mg Tablet PO 25 mg DAILY SON Administration Trazodone HCl 50 mg 06/28/20 15:53 Trazodone Hcl 50 Mg Tablet PO BEDTIME PRN Insomnia Allergies Allergies Allergy/AdvReac Type Severity Reaction Status Date / Time No Known Allergies Allergy Verified 01/27/20 14:58 Assessment & Plan Impression: depression, ptsd, emotional reactivity and intermittent cocaine abuse SI/HI have now fully resolved and pt says he feels safe, calm and is again future oriented. Pt was started on Olanzapine and Sertraline which he says helped in the past and he feels are helping now pt would like help making plans to move forward and stay stable regarding cocaine use, pt says he mostly stays sober but when emotionally triggered he falls back into it etoh moderate (intermittently 3 beers per day); denies any hx of etoh withdrawal plan: continue olanzapine 5mg qhs for mood stability increase Zoloft to 50mg SW to help with dispo (pt homeless) and prescriber Greater than 50% of the session was spent on counseling and/or coordination of care Reason for contiued inpatient stay Substantial Risk for: med/psych decompensation
[2020-06-30 16:32] VITALS: BP 127/69; PULSE 95; TEMP 36.7
--- NOTE | 2020-06-30 18:44 | PC.NURSE ---
Pt signed a 3 day notice which will be up on 07/03. Pt verbalized understanding of document. Dr. Reeder notified.
[2020-06-30] MEDS: traZODone HCL 50 MG TABLET PO (20:58)
[2020-07-01 07:00] VITALS: BP 114/68; PULSE 70; RESP 16; TEMP 36.5; O2SAT 98
[2020-07-01] MEDS: Sertraline HCL 50 MG TABLET PO (08:56)
[2020-07-01] MEDS: OLANZapine 5 MG TABLET PO (08:56)
[2020-07-01] MEDS: Amoxicillin/Potassium Clav 875 MG TABLET PO ×2 (08:56→20:03)
[2020-07-01 16:25] VITALS: BP 135/59; PULSE 97; TEMP 36.9
--- NOTE | 2020-07-01 16:47 | P.PNPSI_ITS ---
Subjective Subjective Date of Service: 07/01/20 Reason For Visit: SI/HI Subjective Notes: 3 Day (07/03/20) Interim History: Pt reports he is feeling improved, less angry, in control. Review of precipitants to admission. States he has had difficulty with OP team keeping appointments for meds and therapy and when he is not taking medications his mood is difficult to manage. Feeling much improved with medicine re- established, reflective on his reactions to stressors. Discussed his aunts sudden of cardiac event. Describes a strong family history of cardiac iss ues and sudden cardiac . Discussed meeting with PCP to review risk and plan for consult/intervention. Also discussed PCP working with pt on meds if appointments with out pt team are postponed. Pt also discussed needing a referral to a dentist. Medication Compliance: Yes Side effects from medications: No Attending Groups: No Review of Systems Review of Systems Yes all other systems are reviewed and are negative (denies) Psychiatric: Reports depression, Reports irritability, Reports mood swings, Reports homicidal ideation (denies HI plan or intent) and Reports suicidal ideation (denies SI plan or intent) Mental Status Exam Mental Status Exam Patient Appearance: Appropriate Patient Orientation: Person, Place, Time and Situation Level of Consciousness: Alert Patient Behavior: Appropriate, Talkative and Cooperative Mood Description: Withdrawn, Constricted and Depressed Affect Description: Flat Patient Cognition Impaired: No Ability to Follow Directions: Good Speech Pattern: Spontaneous Speech Memory Description: Intact Hallucinations: None Delusions: Not Present Thought Process: Intact Thought Content: positive for Intact Depressive Symptoms: Diff. Making Decisions, Increased Irritability, Unhappiness, Thoughts of /Suicide (denies SI plan or intent), Low Self Esteem and Loss of Energy Judgement: Good Diagnostics Vital Signs (24Hr): Vital Signs - 24 hr 07/01/20 07:00 07/01/20 16:25 Temperature 97.7 F 98.4 F Pulse Rate 70 97 Respiratory Rate 16 Blood Pressure 114/68 135/59 L Pulse Oximetry 98 Body Mass Index 23.1 Labs Results: 06/25/20 16:46 06/25/20 16:46 Medications Medications Current Medications Generic Name Dose Route Start Last Admin Trade Name Freq PRN Reason Stop Dose Admin Acetaminophen 650 mg 06/28/20 15:53 Acetaminophen 325 Mg Tablet PO Q6H PRN Headache/Pain Mild Scale (1-3) Al Hydroxide/Mg Hydroxide 30 ml 06/28/20 15:53 Magnesium Hydrox/Alum Hydrox 30 Ml Oral.Susp PO Q6H PRN Heartburn/Nausea Amoxicillin/Clavulanate Potassium 875 mg 06/26/20 21:00 07/01/20 08:56 Amoxicillin/Potassium Clav 875 Mg Tablet PO 07/06/20 20:59 875 mg BID SON Administration Cyclobenzaprine HCl 10 mg 06/26/20 14:56 Cyclobenzaprine Hcl 10 Mg Tablet PO BID PRN muscle cramps Diphenhydramine HCl 50 mg 06/28/20 15:53 Diphenhydramine Hcl 25 Mg Tablet PO Q4H PRN agitation Haloperidol 5 mg 06/28/20 15:53 Haloperidol 5 Mg Tablet PO Q4H PRN agitation Hydroxyzine HCl 50 mg 06/28/20 15:53 Hydroxyzine Hcl 25 Mg Tablet PO RQ4H PRN Anxiety Lorazepam 2 mg 06/28/20 15:53 Lorazepam 1 Mg Tablet PO Q4H PRN agitation Magnesium Hydroxide 30 ml 06/28/20 15:53 Milk Of Magnesia 30 Ml Oral.Susp PO DAILY PRN Constipation Nicotine 21 mg 06/28/20 15:53 Nicotine 21 Mg Patch.Td24 TRANSDERMA DAILY PRN Nicotine Cessation Nicotine Polacrilex 4 mg 06/28/20 15:53 Nicotine Polacrilex 2 Mg Gum BUCCAL Q2H PRN Nicotine Cravings Olanzapine 5 mg 06/26/20 14:53 06/27/20 20:07 Olanzapine 5 Mg Tablet PO 5 mg DAILY PRN Administration agitation Olanzapine 5 mg 06/26/20 15:00 07/01/20 08:56 Olanzapine 5 Mg Tablet PO 5 mg DAILY SON Administration Sertraline HCl 50 mg 07/01/20 09:00 07/01/20 08:56 Sertraline Hcl 50 Mg Tablet PO 50 mg DAILY SON Administration Trazodone HCl 50 mg 06/28/20 15:53 06/30/20 20:58 Trazodone Hcl 50 Mg Tablet PO 50 mg BEDTIME PRN Administration Insomnia Allergies Allergies Allergy/AdvReac Type Severity Reaction Status Date / Time No Known Allergies Allergy Verified 01/27/20 14:58 Assessment & Plan Assessment & Plan (1) Post traumatic stress disorder (PTSD): Status: Acute Code(s): F43.10 - Post-traumatic stress disorder, unspecified (2) History of depressive symptoms: Status: Acute Code(s): Z86.59 - Personal history of other mental and behavioral disorders (3) Cellulitis of finger: Status: Acute Code(s): L03.019 - Cellulitis of unspecified finger (4) Cocaine-induced mood disorder with depressive symptoms: Status: Acute Code(s): F14.94 - Cocaine use, unspecified with cocaine-induced mood disorder Assessment and Plan: Impression: depression, ptsd, emotional reactivity and intermittent cocaine abuse SI/HI have now fully resolved and pt says he feels safe, calm and is again future oriented. Pt was started on Olanzapine and Sertraline which he says helped in the past and he feels are helping now pt would like help making plans to move forward and stay stable regarding cocaine use, pt says he mostly stays sober but when emotionally triggered he falls back into it etoh moderate (intermittently 3 beers per day); denies any hx of etoh withdrawal plan: continue olanzapine 5mg qhs for mood stability Continue Zoloft 50mg daily SW to help with dispo (pt homeless) and prescriber Greater than 50% of the session was spent on counseling and/or coordination of care Reason for contiued inpatient stay Substantial Risk for: harm to self, harm to others, inability to function and rapid decompensation
[2020-07-01] MEDS: traZODone HCL 50 MG TABLET PO ×2 (21:44→22:33)
[2020-07-02 06:00] VITALS: BP 105/51; PULSE 72; RESP 18; TEMP 36.6; O2SAT 99
[2020-07-02] MEDS: OLANZapine 5 MG TABLET PO (09:54)
[2020-07-02] MEDS: Amoxicillin/Potassium Clav 875 MG TABLET PO ×2 (09:54→20:53)
[2020-07-02] MEDS: Sertraline HCL 50 MG TABLET PO (09:54)
--- NOTE | 2020-07-02 13:54 | HO.PSYCHPN ---
Subjective Subjective Date of Service: 07/02/20 Reason For Visit: SI/HI Subjective Notes: 3 Day Interim History: pt reports he's good and feeling calm and laid back. He denies any SI or HI and says he's feeing ready to go home. Patient plans to stay with friend upon discharge. He feels current medication regimen is working well and wants to continue. Pt reports he's sleeping well and has no other complaints. Medication Compliance: Yes Side effects from medications: Yes Attending Groups: No Mental Status Exam Mental Status Exam Narrative: Appearance: Appropriate Patient Orientation: Person, Place, Time and Situation Level of Consciousness: Alert Patient Behavior: Appropriate, Talkative and Cooperative Mood Description: calm and laid back Affect Description: congruent Patient Cognition Impaired: No Ability to Follow Directions: Good Speech Pattern: Spontaneous Speech Memory Description: Intact Hallucinations: None Delusions: Not Present Thought Process: Intact, linear and goal directed Thought Content: positive for Intact Depressive Symptoms: denies Judgement: fair Diagnostics Vital Signs (24Hr): Vital Signs - 24 hr 07/01/20 16:25 07/02/20 06:00 Temperature 98.4 F 97.9 F Pulse Rate 97 72 Respiratory Rate 18 Blood Pressure 135/59 L 105/51 L Pulse Oximetry 99 Body Mass Index 23.1 Labs Results: 06/25/20 16:46 06/25/20 16:46 Medications Medications Current Medications Generic Name Dose Route Start Last Admin Trade Name Freq PRN Reason Stop Dose Admin Acetaminophen 650 mg 06/28/20 15:53 Acetaminophen 325 Mg Tablet PO Q6H PRN Headache/Pain Mild Scale (1-3) Al Hydroxide/Mg Hydroxide 30 ml 06/28/20 15:53 Magnesium Hydrox/Alum Hydrox 30 Ml Oral.Susp PO Q6H PRN Heartburn/Nausea Amoxicillin/Clavulanate Potassium 875 mg 06/26/20 21:00 07/02/20 09:54 Amoxicillin/Potassium Clav 875 Mg Tablet PO 07/06/20 20:59 875 mg BID SON Administration Cyclobenzaprine HCl 10 mg 06/26/20 14:56 Cyclobenzaprine Hcl 10 Mg Tablet PO BID PRN muscle cramps Diphenhydramine HCl 50 mg 06/28/20 15:53 Diphenhydramine Hcl 25 Mg Tablet PO Q4H PRN agitation Haloperidol 5 mg 06/28/20 15:53 Haloperidol 5 Mg Tablet PO Q4H PRN agitation Hydroxyzine HCl 50 mg 06/28/20 15:53 Hydroxyzine Hcl 25 Mg Tablet PO RQ4H PRN Anxiety Lorazepam 2 mg 06/28/20 15:53 Lorazepam 1 Mg Tablet PO Q4H PRN agitation Magnesium Hydroxide 30 ml 06/28/20 15:53 Milk Of Magnesia 30 Ml Oral.Susp PO DAILY PRN Constipation Nicotine 21 mg 06/28/20 15:53 Nicotine 21 Mg Patch.Td24 TRANSDERMA DAILY PRN Nicotine Cessation Nicotine Polacrilex 4 mg 06/28/20 15:53 Nicotine Polacrilex 2 Mg Gum BUCCAL Q2H PRN Nicotine Cravings Olanzapine 5 mg 06/26/20 14:53 06/27/20 20:07 Olanzapine 5 Mg Tablet PO 5 mg DAILY PRN Administration agitation Olanzapine 5 mg 06/26/20 15:00 07/02/20 09:54 Olanzapine 5 Mg Tablet PO 5 mg DAILY SON Administration Sertraline HCl 50 mg 07/01/20 09:00 07/02/20 09:54 Sertraline Hcl 50 Mg Tablet PO 50 mg DAILY SON Administration Trazodone HCl 50 mg 06/28/20 15:53 07/01/20 22:33 Trazodone Hcl 50 Mg Tablet PO 50 mg BEDTIME PRN Administration Insomnia Allergies Allergies Allergy/AdvReac Type Severity Reaction Status Date / Time No Known Allergies Allergy Verified 01/27/20 14:58 Assessment & Plan Assessment & Plan (1) Post traumatic stress disorder (PTSD): Status: Acute Code(s): F43.10 - Post-traumatic stress disorder, unspecified (2) History of depressive symptoms: Status: Acute Code(s): Z86.59 - Personal history of other mental and behavioral disorders (3) Cellulitis of finger: Status: Acute Code(s): L03.019 - Cellulitis of unspecified finger (4) Cocaine-induced mood disorder with depressive symptoms: Status: Acute Code(s): F14.94 - Cocaine use, unspecified with cocaine-induced mood disorder Assessment and Plan: Impression: depression, ptsd, emotional reactivity and intermittent cocaine abuse SI/HI have now fully resolved and pt says he feels safe, calm and is again future oriented. Pt was started on Olanzapine and Sertraline which he says helped in the past and he feels are helping now pt would like help making plans to move forward and stay stable regarding cocaine use, pt says he mostly stays sober but when emotionally triggered he falls back into it etoh moderate (intermittently 3 beers per day); denies any hx of etoh withdrawal pt signed 3 day and agrees to dc on 07/03. Pt remains in good mood and behavioral control. His depression, SI/HI remain resolved and is future oriented He is not in imminent risk for harm to self or others and does not meet criteria for involuntary commitment. plan: dc on 07/03 continue olanzapine 5mg qhs for mood stability Continue Zoloft 50mg daily SW to help with dispo (pt homeless) and prescriber Greater than 50% of the session was spent on counseling and/or coordination of care Reason for contiued inpatient stay Substantial Risk for: med/psych decompensation
[2020-07-02 18:30] VITALS: BP 123/82; PULSE 94; TEMP 36.9
[2020-07-03 06:00] VITALS: BP 103/50; PULSE 64; RESP 16; TEMP 36.8; O2SAT 100
[2020-07-03] MEDS: OLANZapine 5 MG TABLET PO (08:53)
[2020-07-03] MEDS: Amoxicillin/Potassium Clav 875 MG TABLET PO (08:53)
[2020-07-03] MEDS: Sertraline HCL 50 MG TABLET PO (08:53)
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
== END 2020-07-03 12:00 | disposition home or self-care (01) | DRG 755 ==
LOC: HO.ED 06-28 09:48 → HO.PM5 06-28 14:05
PROVIDERS: Nurse Practitioner Family; Physician Assistant; Admitting Provider Psychiatry & Neurology Psychiatry; Emergency Provider Emergency Medicine Emergency Medical Services; Visit Provider Psychiatry & Neurology Psychiatry
DX: F43.25 Adjustment disorder with mixed disturbance of emotions and conduct (principal); F33.2 Major depressive disorder, recurrent severe without psychotic features; R45.851 Suicidal ideations; R45.850 Homicidal ideations; F14.10 Cocaine abuse, uncomplicated; F17.210 Nicotine dependence, cigarettes, uncomplicated; F43.10 Post-traumatic stress disorder, unspecified; L03.011 Cellulitis of right finger; Z20.822 Contact with and (suspected) exposure to COVID-19; Z71.6 Tobacco abuse counseling; Z79.899 Other long term (current) drug therapy
CPT/HCPCS: 36415; 80048; 80061; 80076; 80307; 83036; 85025; 87635; 93005; 99285; Q0163

== ENCOUNTER 2020-07-10 19:08 | Emergency (ER) | payer MEDICAID, SELFPAY ==
[2020-07-10 19:23] VITALS: BP 144/73; PULSE 81; RESP 18; O2SAT 98; BMI 25.1
--- NOTE | 2020-07-10 19:50 | ED.GENADULT ---
HPI - General Adult General Chief complaint: Dizziness Stated complaint: URINE RETENTION,BILAT FOOT PAIN Time Seen by Provider: 07/10/20 19:50 Source: patient, RN notes reviewed and old records reviewed Mode of arrival: ambulatory Limitations: no limitations History of Present Illness HPI narrative: 39-year-old male here today for multiple different complaints. He reports that he was unable to void, denies any abdominal pain or discomfort. Denies any bloating. Denies constipation, diarrhea, nausea, vomiting, epigastric discomfort, chest pain, PND, SOB with or without exertion. Patient reports that bilateral feet are feeling like there burning, painful. Patient reports that he is feeling weak, denies any drug use or drinking alcohol. He has a history of depressive disorder, PTSD, adjustment mood disorder with mixed disturbance of emotions and conduct. He was discharge from 5 on July 03. He was supposed to follow-up with [facility]. Patient was just started on olanzapine, sertraline, and trazodone. Patient denies any suicidal ideation or any homicidal ideation. Related Data Previous Rx's Medication Instructions Recorded amoxicillin-pot clavulanate 1 tab PO BID #7 tab 07/03/20 cyclobenzaprine 10 mg PO BID PRN #30 tab 07/03/20 olanzapine 5 mg PO DAILY #45 tab MDD 10mg 07/03/20 sertraline 50 mg PO DAILY #30 tab 07/03/20 trazodone 50 mg PO BEDTIME PRN #30 tab 07/03/20 Allergies Allergy/AdvReac Type Severity Reaction Status Date / Time No Known Allergies Allergy Verified 01/27/20 14:58 Review of Systems Review of Systems: Constitutional : No Weight loss, No Fever, No Chills, No Night Sweats, No Fatigue, No Malaise ENT/Mouth : No Hearing loss, No Ear Pain, No Nasal Congestion, No Sinus Pain, No Hoarseness, No sore throat, No Rhinorrhea, No Swallowing Difficulty Eyes: No Eye Pain, No Swelling, No Redness, No Foreign Body, No Discharge, No Vision Changes Cardiovascular : No Chest Pain, No SOB, No Dyspnea on Exertion, No Orthopnea, No Edema, No Palpitations Respiratory : No Cough, No Sputum, No Wheezing, No Smoke Exposure, No Dyspnea Gastrointestinal : No Nausea, No Vomiting, No Diarrhea, No Constipation, No abdominal Pain, No Hematochezia, No Melena Genitourinary : no irregular bleeding, No Dysuria, No Urinary Frequency, No Hematuria, No Urinary Incontinence, No Urgency, No Flank Pain, No Urinary Flow Changes, No Hesitancy Musculoskeletal : No joint pain, No Myalgias, No Joint Swelling Skin : No Skin Lesions, No rash Neuro : No Weakness, Numbness to his feet bilaterally, No Paresthesias, No Loss of Consciousness, No Dizziness, No Headache Psych : No Anxiety/Panic, No Depression, No SI/HI/AH/VH, No Social Issues, Heme/Lymph: No Bruising, No Bleeding,No Lymphadenopathy Endocrine : No Polyuria, No Polydipsia, No Temperature Intolerance Yes all other systems are reviewed and are negative [facility] Past Medical History Medical History Anxiety Healthy adolescent Healthy adult Major depressive disorder Social History Social History Household Members: Family Housing: Apartment Alcohol intake: current Alcohol intake frequency: a few times a week Alcohol type: beer Smoking Status: Light tobacco smoker Tobacco Type: Cigarette Packs Per Day: 0 Cigarettes Per Day: 0 Years Smoked: 15 Second Hand Smoke Exposure: Yes Use of substances other than those prescribed or required for medical reasons: Yes Substance Use Type: Crack/Cocaine Advance Directives: No Advance Directives Information Provided: No service: No Sexual orientation: Straight/Heterosexual Physical Exam Vital Signs: Vital Signs: Last Vital Signs Temp 98.6 F 07/10/20 21:07 Pulse 80 07/10/20 21:07 Resp 20 07/10/20 21:07 BP 133/79 07/10/20 21:07 Pulse Ox 100 07/10/20 21:07 Body Mass Index 25.1 Const: General: healthy appearing, no acute distress and well developed Nutritional Appearance: well nourished Orientation/consciousness: patient oriented x3 Neck: Neck: Yes normal visual inspection, Yes full ROM and Yes trachea midline Thyroid: Thyroid normal Resp: Auscultation: clear to auscultation bilaterally Cardio: Rate: regular rate Rhythm: regular rhythm GI: Inspection: Yes normal to inspection and No distended Palpation (GI): No hepatosplenomegaly present Auscultation: normal bowel sounds Skin: General skin exam: elasticity normal, turgor normal and dry skin Neuro: General: patient oriented x3 Course Course Course Narrative: 39 years old is here today for multiple complaints. He reports to have symptoms of inability to urinate, denies any distension, pain or burning. Denies any fever or chills. Reports to have bilateral feet burning. States that he is feeling tired. Denies any exposure to COVID. Recently discharged from [facility] and new med changed. Denies any CP, PND, SOB with or without exertion. Denies any SI or HI. Will order basic labs. CBC and CMP. Reevaluation(s) Reevaluation #1: Patient reports that he is feeling little overwhelmed, he is stating that he feels very depressed would like to talk to crisis. Will wait for his blood work to come back in will ask crisis team to evaluate him. Patient denies SI or HI. Patient is common cooperative and is agreeable to plan of care. He was given the opportunity to ask questions and all questions answered. Report given to Danielle JAY who will assume further care Medical Decision Making Lab Data Result diagrams: 07/10/20 20:05 07/10/20 20:05 Labs: Lab Results 07/10/20 07/10/20 Range/Units 20:05 20:05 WBC 10.5 (4.8-10.8) X10*3/uL RBC 4.60 (4.60-5.80) X10*6/uL Hgb 14.0 (14.0-18.0) g/dl Hct 41.6 L (42-52) % MCV 90.4 (80-98) fL MCH 30.4 (27.0-33.0) pg MCHC 33.7 (31.0-36.0) g/dl RDW 13.0 (11.0-16.0) % Plt Count 329 D (160-400) X10*3/uL MPV 10.0 (9.4-12.4) fL Immature Gran % (Auto) 0.5 H (0.0-0.4) % Neut % (Auto) 62.7 (45-73) % Lymph % (Auto) 23.6 (20-40) % Hampton % (Auto) 8.4 (2-11) % Eos % (Auto) 4.4 H (0-4) % Baso % (Auto) 0.4 (0-2) % Lymph # (Auto) 2.5 (1.2-4.9) X10*3/uL [place] # (Auto) 0.9 (0.1-1.2) X10*3/uL Eos # (Auto) 0.5 H (0.0-0.4) X10*3/uL Baso # (Auto) 0.0 (0.0-0.2) X10*3/uL Abs Immat Gran (auto) 0.05 H (0.00-0.03) X10*3/uL Absolute Neuts (auto) 6.6 (2.0-8.3) X10*3/uL Absolute Nucleated RBC 0.000 (0.0-0.012) X10*3/uL Nucleated RBC % (auto) 0.0 (0.0-0.2) /100WBC Lipase 17 (8-78) U/L Discharge Plan Discharge Prescriptions: No Action amoxicillin-pot clavulanate 875-125 mg Tablet 1 tab PO BID Qty: 7 RF: 0 cyclobenzaprine 10 mg Tablet 10 mg PO BID PRN (Reason: muscle cramps) Qty: 30 RF: 0 olanzapine 5 mg Tablet 5 mg PO DAILY MDD 10mg Qty: 45 RF: 0 sertraline 50 mg Tablet 50 mg PO DAILY Qty: 30 RF: 0 trazodone 50 mg Tablet 50 mg PO BEDTIME PRN (Reason: Insomnia) Qty: 30 RF: 0
[2020-07-10 20:10] LABS: MANUAL DIFF FLAG NO
[2020-07-10] MEDS: 0.9 % Sodium Chloride 1,000 ML 999 ML IV (20:11)
[2020-07-10 20:12] LABS: Basophils Percent Auto 0.4 % (0-2); Eosinophils Absolute Auto 0.5 X10*3/uL (0.0-0.4); Eosinophils Percent Auto 4.4 % (0-4); Hematocrit 41.6 % (42-52); Imm Gran Abs Auto 0.05 X10*3/uL (0.00-0.03); Imm Gran Pct Auto 0.5 % (0.0-0.4); Lymphocytes Absolute Auto 2.5 X10*3/uL (1.2-4.9); Lymphocytes Percent Auto 23.6 % (20-40); Mean Corpuscular HGB Conc 33.7 g/dl (31.0-36.0); Mean Corpuscular Hemoglobin 30.4 pg (27.0-33.0); Mean Corpuscular Volume 90.4 fL (80-98); Monocytes Absolute Auto 0.9 X10*3/uL (0.1-1.2); Monocytes Percent Auto 8.4 % (2-11); Neutrophils Absolute Auto 6.6 X10*3/uL (2.0-8.3); Neutrophils Percent Auto 62.7 % (45-73); Platelet Count 329 X10*3/uL (160-400); White Blood Count 10.5 X10*3/uL (4.8-10.8)
--- NOTE | 2020-07-10 20:23 | PC.NURSE ---
bladder scan reveals 125ml MLP aware no new orders at this time
[2020-07-10 20:38] LABS: Lipase 17 U/L (8-78)
--- NOTE | 2020-07-10 20:57 | ECG_ITS ---
Test Reason : DIZZINESS Blood Pressure : / mmHG Vent. Rate : 070 BPM Atrial Rate : 070 BPM P-R Int : 140 ms QRS Dur : 100 ms QT Int : 408 ms P-R-T Axes : 044 011 031 degrees QTc Int : 440 ms Normal sinus rhythm Normal ECG When compared with ECG of 28-JUN-2020 12:30, No significant change was found Referred By: Marleni Nava Electronically Signed By:MANUELA COREA MD
[2020-07-10 21:07] VITALS: BP 133/79; PULSE 80; RESP 20; TEMP 37; O2SAT 100
[2020-07-10 21:32] LABS: Glucose Urine UA NEG (NEG); Leukocyte Esterase Urine NEG (NEG); Nitrite Urine NEG (NEG); Specific Gravity - Urine >= 1.030 (1.005-1.025); Urine Blood NEG (NEG); Urine Ketones NEG (NEG); Urine Protein NEG (NEG-TRACE)
[2020-07-10 21:34] LABS: Appearance Urine CLEAR; Color Urine YELLOW
[2020-07-10 22:16] LABS: Influenza A PCR NEGATIVE (Negative); Influenza B PCR NEGATIVE (Negative); Resp Syncy Virus RNA Qual PCR NEGATIVE (Negative); SARS COV2 PCR INHOUSE NEGATIVE (Negative)
[2020-07-10 22:46] LABS: Alanine Aminotransferase 45 U/L (0-40); Albumin Level 3.6 g/dL (3.5-5.0); Alkaline Phosphatase 77 U/L (39-117); Anion Gap 12 (12-20); Aspartate Amino Transferase 24 U/L (5-37); Bilirubin Total 0.3 mg/dL (0.0-1.0); Blood Urea Nitrogen 11 mg/dL (9-16); Calcium 8.3 mg/dL (8.4-10.2); Carbon Dioxide 22 mmol/L (22-29); Chloride 109 mmol/L (96-108); Creatinine Clr Calc Pharmacy 138.5; Estimated Glomerular Filt Rate > 60; Glucose Random 95 mg/dL (60-115); Potassium 3.7 mmol/L (3.3-5.1); Sodium 139 mmol/L (135-145); Total Protein 6.3 g/dL (6.5-8.0)
[2020-07-10 23:01] LABS: Ethanol < 10 mg/dL
[2020-07-10 23:04] LABS: Amphetamine Screen Urine Not Detected (Not Detect); Barbiturates, Urine Not Detected (Not Detect); Benzodiazepines Screen Urine Not Detected (Not Detect); Cannabinoid Screen Urine Not Detected (Not Detect); Cocaine Screen Urine POSITIVE (Not Detect); Opiate Screen Urine Not Detected (Not Detect); Phencyclidine Screen Urine Not Detected (Not Detect)
--- NOTE | 2020-07-10 23:34 | PC.NURSE ---
paperwork faxed to [facility] paperwork received, spoke with Kathe Beard from [facility]
[2020-07-11] MEDS: Cyclobenzaprine HCl 10 MG TABLET PO (00:34)
[2020-07-11] MEDS: traZODone HCL 50 MG TABLET PO (00:34)
--- NOTE | 2020-07-11 07:23 | PC.NURSE ---
Report received from BO Hamilton. Pt resting, resp unlabored.
[2020-07-11] MEDS: OLANZapine 5 MG TABLET PO (08:45)
[2020-07-11] MEDS: Sertraline HCL 50 MG TABLET PO (08:45)
--- NOTE | 2020-07-11 08:48 | PC.NURSE ---
Pt resting, accepted medications, reported that he feels 'down' but does not confirm SI. No other concern reported.
--- NOTE | 2020-07-11 09:06 | PC.NURSE ---
CARE team in to evaluate pt
--- NOTE | 2020-07-11 10:00 | MHC.RECOVRN ---
39 yr old male presented to [facility] [place] ED via EMS on 07/10 due to Pt reports several days of dizziness, b/l leg numbness/ tingling/pain with ambulation, nausea without vomiting, increased anxiety, decreased and difficulty urinating per tire and tube repairer. Upon evaluation and medical clearance, pt reported feeling overwhelmed, depressed, and requested to talk to crisis. Pt subsequently moved to [facility].? T/w met with pt in [facility] to discuss substance use after request from CARE Team. Pt reports cocaine use, IN, 2 bags daily, last use last week as well as alcohol use x forever. Pt states I don't drink to get drunk. However, pt states past ATS admissions for alcohol use disorder. Pt reports longest time in recovery was in senior living for 6.5 years. Pt interested in life coach, AA/NA, and medications for alcohol use disorder. Pt educated regarding medications and would like to have appt at the [facility]. Case discussed with Tammie Maldonado APRN. Plan for life coach to see pt prior to dc. Pt has appt at the [facility] on 07/12 at 2PM. CARE Team aware of plan. Pt provided with resources and t/w contact information if needed.?
--- NOTE | 2020-07-11 10:38 | MHC.RECOVSUP ---
? Reason for consult:Continuity of care o Current location: [facility] o Identified substance use concern: Cocaine and ETOH - Withdrawal - Support ? Intervention: o MAT started or to be started o Community resources provided ? Plan: o Referral to CCC o Follow up tomorrow o Patient awaiting crisis evaluation o Patient to follow up with [facility] after discharge ? Additional information:Pt.given community resources to [facility], patient awaiting to speak to someone from the [facility], to set up MAT for his ETOH abuse.
--- NOTE | 2020-07-11 10:54 | PC.NURSE ---
Pt seen by recovery room rn and by catalyst recovery operator, awaiting dispo, currently resting, resp unlabored.
--- NOTE | 2020-07-11 10:59 | PC.NURSE ---
Pt declining vital signs
--- NOTE | 2020-07-11 11:52 | MHC.CARE ---
0900: Met with pt. Pt arrived at the [facility] for medical issues and reported to the Doctor that he was ?feeling down? and wanted to speak with ?crisis?. Pt was seen in his room, [facility], in the Behavioral Health Pod of the ED. Pt reports a recent [facility] stay and discharge on 07/03 of this year. Pt stated that he has been homeless since his discharge and is feeling down about the homelessness and the dissolving of his relationship with his girlfriend. Pt reports that his cocaine use has something to do with his relationship dissolving. He stated his girlfriend will not allow him back until his drug use stops, pt reports being drug free since his discharge, although his tox screen came back as positive for cocaine. Pt reports missing ?a few? appointments with his counselor or medication provider (he cannot say with certainty who he was to see at those meetings) and attributes missing them to ?Jumping around from place to place? making meeting attendance difficult. He is able to attend zoom meetings, stating that his cell phone can access the internet if needed. Pt reports stated he has an appointment on 08/04, he is unable to state what manner of appointment it is but he did express that he would be attending it.Pt strongly denied any thoughts of harm to self or others. I offered the services of the recovery team, which pt accepted. chinese herbalist Estevan Mcgee was contacted and met with pt setting him up with resources and the on duty Food Vendor. The recommendation from this sign writer letterer or painter is to discharge the pt as he does not meet in patient level of care. Pt?s nurse BO Castro was briefed and is in agreement as is the pt?s provider PIERRE Stewart is also in agreement. Met with pt to discuss the plan and pt is in agreement as well. Pt has an appointment at the [facility] tomorrow at 2:00PM.
[2020-07-11 12:02] VITALS: BP 141/89; PULSE 86; RESP 20; TEMP 36.3; O2SAT 98
--- NOTE | 2020-07-11 12:02 | PC.NURSE ---
Pt awake, showered, affect even, awaiting discharge to be completed, in agreement with plan.
--- NOTE | 2020-07-11 12:11 | PC.NURSE ---
Pt given discharge instructions, verbalized understanding of instructions. No concerns reported pt appears happy to be discharged, is aware and in agreement w/ plan to seek further treatment at the [facility] as arranged by the Recovery Team.
== END 2020-07-11 12:18 | disposition home or self-care (01) ==
PROVIDERS: Nurse Practitioner Family; Emergency Provider Emergency Medicine
DX: F14.10 Cocaine abuse, uncomplicated (principal); Z20.822 Contact with and (suspected) exposure to COVID-19; F32.9 Major depressive disorder, single episode, unspecified; F41.9 Anxiety disorder, unspecified; F43.10 Post-traumatic stress disorder, unspecified; F43.25 Adjustment disorder with mixed disturbance of emotions and conduct; F17.210 Nicotine dependence, cigarettes, uncomplicated; Z79.899 Other long term (current) drug therapy
CPT/HCPCS: 0241U; 36415; 80053; 80307; 80320; 81003; 83690; 85025; 93005; 96360; 99285

== ENCOUNTER 2020-08-29 11:04 | Inpatient (IN) | payer OTHER, SELFPAY ==
--- NOTE | 2020-08-29 | ECG_ITS ---
Test Reason : MED CLEARANCE Blood Pressure : / mmHG Vent. Rate : 076 BPM Atrial Rate : 076 BPM P-R Int : 130 ms QRS Dur : 106 ms QT Int : 392 ms P-R-T Axes : 052 004 059 degrees QTc Int : 441 ms Normal sinus rhythm Normal ECG When compared with ECG of 10-JUL-2020 21:07, No significant change was found Referred By: Beni Stewart Electronically Signed By:MANUELA COREA MD
[2020-08-29 11:26] VITALS: BP 157/82; PULSE 80; RESP 16; TEMP 37.1; O2SAT 100; BMI 25.1
[2020-08-29 11:55] VITALS: BP 192/80; PULSE 81; RESP 16; TEMP 36.7; O2SAT 99
--- NOTE | 2020-08-29 13:10 | ED.PSYCH ---
HPI - Psych General Chief Complaint: Psychiatric Symptoms Stated Complaint: CRISIS Time Seen by Provider: 08/29/20 16:08 Source: patient Mode of arrival: ambulatory Limitations: no limitations History of Present Illness HPI Narrative: Patient presents to the ED for SI statements due to depression. Patient states his plan is to call skill training program coordinator and tell them he has a gun So they can shoot him. patient states he lost his home, is homeless, and his left him. Patient states not compliant on medications. MD complaint: suicidal ideation Related Data Previous Rx's Medication Instructions Recorded cyclobenzaprine 10 mg PO BID PRN #30 tab 07/03/20 olanzapine 5 mg PO DAILY #45 tab MDD 10mg 07/03/20 sertraline 50 mg PO DAILY #30 tab 07/03/20 Allergies Allergy/AdvReac Type Severity Reaction Status Date / Time No Known Allergies Allergy Verified 01/27/20 14:58 Review of Systems Review of Systems: Yes all other systems are reviewed and are negative Constitutional: Constitutional: Reports as per HPI and Reports no additional constitutional complaints Eyes: Eyes: Reports as per HPI and Reports no additional eye complaints ENT: Reports system reviewed and no additional complaints, except as documented and Reports as per HPI Cardiovascular: Cardiovascular: Reports as per HPI and Reports no additional cardiovascular complaints Respiratory: Respiratory: Reports as per HPI and Reports no additional respiratory complaints Gastrointestinal: Gastrointestinal: Reports as per HPI and Reports no additional gastrointestinal complaints Genitourinary: Genitourinary: Reports no additional male genitourinary complaints and Reports as per HPI Musculoskeletal: Musculoskeletal: Reports no additional musculoskeletal complaints and Reports as per HPI Neurologic: Reports system reviewed and no additional complaints, except as documented and Reports as per HPI Psychiatric: Psychiatric: Reports no additional psychiatric complaints and Reports as per HPI PMFSH Past Medical History Medical History Anxiety Healthy adolescent Healthy adult Major depressive disorder Social History Social History Household Members: Family Housing: Apartment Do you presently have visiting nurse or other home services: No Alcohol intake: unknown Patient Tobacco Use Status: Current someday Tobacco user Cigarette Packs Per Day: 0 Cigarettes Per Day: 0 Years Smoked: 15 Smoked in Last 30 Days: Yes Second Hand Smoke Exposure: Yes Use of substances other than those prescribed or required for medical reasons: Yes Substance Use Type: Marijuana Substance Use Frequency: Occasionally Last Used Substance: Days (ago) Any prior treatment program specific to substance use: Yes Advance Directives: Yes Advance Directives Information Provided: No Advance Directives on File: No service: No Sexual orientation: Straight/Heterosexual Physical Exam Vital Signs: Vital Signs: Last Vital Signs Temp 98.0 F 08/29/20 11:55 Pulse 81 08/29/20 11:55 Resp 16 08/29/20 11:55 BP 192/80 H 08/29/20 11:55 Pulse Ox 99 08/29/20 11:55 Body Mass Index 25.1 Const: General: cooperative, healthy appearing, comfortable, no acute distress, well developed, alert, awake and Physically active Orientation/consciousness: patient oriented x3 HENMT: Head: Yes normal to inspection, Yes No palpable skull fracture present, Yes normocephalic, Yes atraumatic and No abrasion Eyes: General: appearance normal, both eyes and all related structures Neck: Neck: Yes normal visual inspection, Yes full ROM, Yes no lymphadenopathy, Yes no meningeal signs, Yes trachea midline, Yes supple and No tender Chest: Chest palpation & inspection: normal inspection of the chest and normal palpation of entire chest wall Resp: Effort & Inspection: normal respiratory effort and able to speak in complete sentences Auscultation: clear to auscultation bilaterally Cardio: Jugular venous distension: no JVD Heart sounds: S1 normal heart sound present and S2 normal heart sound present GI: Inspection: Yes normal to inspection and No abdominal wall ecchymosis Palpation (GI): Soft to palpation, not firm, nontender, no guarding and not rigid : General: No CVA tenderness and Yes no CVA tenderness Back/Spine/Pelvis: Back: no CVA tenderness, No CVA tenderness and No back tenderness Skin: General skin exam: no rashes or lesions noted and elasticity normal Neuro: General: patient oriented x3, gait normal, no meningeal signs and CN's II-XI intact bilaterally Cranial nerves: Yes CN's II-XII intact bilaterally Extrem: General: Yes normal to inspection and Yes full ROM Psych: Appearance: grossly normal, well kempt and not disheveled Course Course Course Narrative: patient have labs drawn and be evaluated by [facility] Reevaluation(s) Reevaluation #1: N evaluated patient and patient is agreeable to voluntary bed search. patient stable Time: 19:01 MDM - Psych MDM Narrative Medical decision making narrative: Depression Lab Data Result diagrams: 08/29/20 13:10 08/29/20 13:10 Labs: Lab Results 08/29/20 08/29/20 08/29/20 Range/Units 12:55 12:55 13:10 WBC 8.4 (4.8-10.8) X10*3/uL RBC 4.79 (4.60-5.80) X10*6/uL Hgb 14.5 (14.0-18.0) g/dl Hct 43.6 (42-52) % MCV 91.0 (80-98) fL MCH 30.3 (27.0-33.0) pg MCHC 33.3 (31.0-36.0) g/dl RDW 13.0 (11.0-16.0) % Plt Count 354 (160-400) X10*3/uL MPV 10.0 (9.4-12.4) fL Immature Gran % (Auto) 0.4 (0.0-0.4) % Neut % (Auto) 62.3 (45-73) % Lymph % (Auto) 21.5 (20-40) % [place] % (Auto) 11.2 H (2-11) % Eos % (Auto) 4.2 H (0-4) % Baso % (Auto) 0.4 (0-2) % Lymph # (Auto) 1.8 (1.2-4.9) X10*3/uL [place] # (Auto) 0.9 (0.1-1.2) X10*3/uL Eos # (Auto) 0.4 (0.0-0.4) X10*3/uL Baso # (Auto) 0.0 (0.0-0.2) X10*3/uL Abs Immat Gran (auto) 0.03 (0.00-0.03) X10*3/uL Absolute Neuts (auto) 5.2 (2.0-8.3) X10*3/uL Absolute Nucleated RBC 0.000 (0.0-0.012) X10*3/uL Nucleated RBC % (auto) 0.0 (0.0-0.2) /100WBC Sodium (135-145) mmol/L Potassium (3.3-5.1) mmol/L Chloride (96-108) mmol/L Carbon Dioxide (22-29) mmol/L Anion Gap (12-20) BUN (9-16) mg/dL Creatinine (0.5-1.4) mg/dL Estim Creat Clear Calc Estimated GFR Random Glucose (60-115) mg/dL Calcium (8.4-10.2) mg/dL Total Bilirubin (0.0-1.0) mg/dL Direct Bilirubin (0.0-0.5) mg/dL AST (5-37) U/L ALT (0-40) U/L Alkaline Phosphatase (39-117) U/L Total Protein (6.5-8.0) g/dL Albumin (3.5-5.0) g/dL Urine Opiates Screen Not Detected (Not Detect) Ur Barbiturates Screen Not Detected (Not Detect) Ur Phencyclidine Scrn Not Detected (Not Detect) Ur Amphetamines Screen Not Detected (Not Detect) U Benzodiazepines Scrn POSITIVE H (Not Detect) Urine Cocaine Screen POSITIVE H (Not Detect) U Marijuana (THC) Screen Not Detected (Not Detect) COVID-19 (ZAC) Negative (Negative) COVID-19 Clin Com See Note 08/29/20 08/29/20 Range/Units 13:10 13:10 WBC (4.8-10.8) X10*3/uL RBC (4.60-5.80) X10*6/uL Hgb (14.0-18.0) g/dl Hct (42-52) % MCV (80-98) fL MCH (27.0-33.0) pg MCHC (31.0-36.0) g/dl RDW (11.0-16.0) % Plt Count (160-400) X10*3/uL MPV (9.4-12.4) fL Immature Gran % (Auto) (0.0-0.4) % Neut % (Auto) (45-73) % Lymph % (Auto) (20-40) % [place] % (Auto) (2-11) % Eos % (Auto) (0-4) % Baso % (Auto) (0-2) % Lymph # (Auto) (1.2-4.9) X10*3/uL [place] # (Auto) (0.1-1.2) X10*3/uL Eos # (Auto) (0.0-0.4) X10*3/uL Baso # (Auto) (0.0-0.2) X10*3/uL Abs Immat Gran (auto) (0.00-0.03) X10*3/uL Absolute Neuts (auto) (2.0-8.3) X10*3/uL Absolute Nucleated RBC (0.0-0.012) X10*3/uL Nucleated RBC % (auto) (0.0-0.2) /100WBC Sodium 143 143 (135-145) mmol/L Potassium 4.0 4.0 (3.3-5.1) mmol/L Chloride 110 H 111 H (96-108) mmol/L Carbon Dioxide 27 27 (22-29) mmol/L Anion Gap 10 L 9 L (12-20) BUN 8 L 9 (9-16) mg/dL Creatinine 0.83 0.84 (0.5-1.4) mg/dL Estim Creat Clear Calc 128.5 126.9 Estimated GFR > 60 > 60 Random Glucose 62 62 (60-115) mg/dL Calcium 9.2 D 9.1 (8.4-10.2) mg/dL Total Bilirubin 0.6 (0.0-1.0) mg/dL Direct Bilirubin 0.2 (0.0-0.5) mg/dL AST 19 (5-37) U/L ALT 25 (0-40) U/L Alkaline Phosphatase 90 (39-117) U/L Total Protein 6.6 (6.5-8.0) g/dL Albumin 3.8 (3.5-5.0) g/dL Urine Opiates Screen (Not Detect) Ur Barbiturates Screen (Not Detect) Ur Phencyclidine Scrn (Not Detect) Ur Amphetamines Screen (Not Detect) U Benzodiazepines Scrn (Not Detect) Urine Cocaine Screen (Not Detect) U Marijuana (THC) Screen (Not Detect) COVID-19 (ZAC) (Negative) COVID-19 Clin Com Discharge Plan Discharge Clinical Impression: Depression Prescriptions: No Action cyclobenzaprine 10 mg Tablet 10 mg PO BID PRN (Reason: muscle cramps) Qty: 30 RF: 0 olanzapine 5 mg Tablet 5 mg PO DAILY MDD 10mg Qty: 45 RF: 0 sertraline 50 mg Tablet 50 mg PO DAILY Qty: 30 RF: 0
[2020-08-29 13:14] LABS: MANUAL DIFF FLAG NO
[2020-08-29 13:23] LABS: Basophils Percent Auto 0.4 % (0-2); Eosinophils Absolute Auto 0.4 X10*3/uL (0.0-0.4); Eosinophils Percent Auto 4.2 % (0-4); Hematocrit 43.6 % (42-52); Hemoglobin 14.5 g/dl (14.0-18.0); Imm Gran Abs Auto 0.03 X10*3/uL (0.00-0.03); Imm Gran Pct Auto 0.4 % (0.0-0.4); Lymphocytes Absolute Auto 1.8 X10*3/uL (1.2-4.9); Lymphocytes Percent Auto 21.5 % (20-40); Mean Corpuscular HGB Conc 33.3 g/dl (31.0-36.0); Mean Corpuscular Hemoglobin 30.3 pg (27.0-33.0); Monocytes Absolute Auto 0.9 X10*3/uL (0.1-1.2); Monocytes Percent Auto 11.2 % (2-11); Neutrophils Absolute Auto 5.2 X10*3/uL (2.0-8.3); Neutrophils Percent Auto 62.3 % (45-73); Platelet Count 354 X10*3/uL (160-400); Red Blood Count 4.79 X10*6/uL (4.60-5.80); White Blood Count 8.4 X10*3/uL (4.8-10.8)
[2020-08-29 13:28] LABS: COVID-19 Test Negative (Negative)
[2020-08-29 13:41] LABS: Anion Gap 10 (12-20); Blood Urea Nitrogen 8 mg/dL (9-16); Calcium 9.2 mg/dL (8.4-10.2); Carbon Dioxide 27 mmol/L (22-29); Chloride 110 mmol/L (96-108); Creatinine Clr Calc Pharmacy 128.5; Estimated Glomerular Filt Rate > 60; Glucose Random 62 mg/dL (60-115); Sodium 143 mmol/L (135-145)
[2020-08-29 13:44] LABS: Amphetamine Screen Urine Not Detected (Not Detect); Barbiturates, Urine Not Detected (Not Detect); Benzodiazepines Screen Urine POSITIVE (Not Detect); Cannabinoid Screen Urine Not Detected (Not Detect); Cocaine Screen Urine POSITIVE (Not Detect); Opiate Screen Urine Not Detected (Not Detect); Phencyclidine Screen Urine Not Detected (Not Detect)
[2020-08-29 13:50] LABS: Alanine Aminotransferase 25 U/L (0-40); Albumin Level 3.8 g/dL (3.5-5.0); Alkaline Phosphatase 90 U/L (39-117); Anion Gap 9 (12-20); Aspartate Amino Transferase 19 U/L (5-37); Bilirubin Direct 0.2 mg/dL (0.0-0.5); Bilirubin Total 0.6 mg/dL (0.0-1.0); Blood Urea Nitrogen 9 mg/dL (9-16); Calcium 9.1 mg/dL (8.4-10.2); Carbon Dioxide 27 mmol/L (22-29); Chloride 111 mmol/L (96-108); Creatinine Clr Calc Pharmacy 126.9; Estimated Glomerular Filt Rate > 60; Glucose Random 62 mg/dL (60-115); Sodium 143 mmol/L (135-145); Total Protein 6.6 g/dL (6.5-8.0)
--- NOTE | 2020-08-29 14:53 | PHA.MEDREC ---
Pharmacy Consult ? Medication Reconciliation Pharmacy has completed the medication reconciliation. Patient has not taken any medication in a month. Knows he is suppose to be Flexeril, Olanzapine, and Sertraline. Lucila Han, PharmD
--- NOTE | 2020-08-29 22:13 | PC.NURSE ---
Patient in his room calm and quiet, no distress observed/reported, patient was on phone for significant amount of time, patient is in good behavioral control, VSS, will continue to monitor.
[2020-08-29 23:11] VITALS: BP 103/53; PULSE 69; RESP 17; TEMP 36.6; O2SAT 99
--- NOTE | 2020-08-30 03:02 | PC.ADMIT ---
Pt is a 39 year old male who came into [facility] [place] [facility] with increased anxiety and depression. Reports recent life changes of no longer being with his girlfriend who recently kicked him out. He is currently homeless and states I have no where to go right now and no support. Denies SI/HI and AH/VH. However, pt stated I don't have any voices yet and did not elaborate further. Non med compliant for approximately 2 months. Reports that his anger has gotten hard to control people can just say the wrong thing and I just snap . Rates depression and anxiety a /10. Tox screen positive for cocaine and benzo's. Pt stated he drinks daily I dont know about less than a pint . Is not displaying any withdrawal symptoms and denies that he is experiencing any. Uses a 1/2 a gram of cocaine every now and then . Pt has had a poor appetite and sleep for a couple months. Medications were verified in the ED. 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 Vitals WNL. CV signed, placed on 5 minute safety checks.
[2020-08-30] MEDS: OLANZapine 5 MG TABLET PO (08:32)
[2020-08-30] MEDS: Sertraline HCL 50 MG TABLET PO (08:33)
[2020-08-30 08:34] VITALS: BP 125/75; PULSE 75; RESP 16; TEMP 36.3; O2SAT 98
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
[2020-08-30 17:50] VITALS: BP 130/77; PULSE 81; RESP 14; TEMP 36.3; O2SAT 98
[2020-08-31 06:00] VITALS: BP 128/91; PULSE 79; RESP 16; TEMP 36.5; O2SAT 98
[2020-08-31] MEDS: Sertraline HCL 50 MG TABLET PO (08:48)
[2020-08-31] MEDS: OLANZapine 5 MG TABLET PO (08:48)
--- NOTE | 2020-08-31 13:55 | P.PNPSI_ITS ---
Subjective Subjective Date of Service: 08/31/20 Reason For Visit: psychiatric crisis Interim History: pt refusing labs this am; refusing to sign legal documents; withdrawn irritable , does report he slept better last night Medication Compliance: Yes Side effects from medications: No Attending Groups: No Review of Systems Review of Systems Yes all other systems are reviewed and are negative Constitutional: Reports as per HPI and Reports no additional constitutional complaints Eyes: Reports as per HPI and Reports no additional eye complaints Reports system reviewed and no additional complaints, except as documented and Reports as per HPI Cardiovascular: Reports as per HPI and Reports no additional cardiovascular complaints Respiratory: Reports as per HPI and Reports no additional respiratory complaints Gastrointestinal: Reports as per HPI and Reports no additional gastrointestinal complaints Genitourinary: Reports no additional male genitourinary complaints and Reports as per HPI Musculoskeletal: Reports no additional musculoskeletal complaints and Reports as per HPI Reports system reviewed and no additional complaints, except as documented, Reports as per HPI and Reports behavioral changes Psychiatric: Reports no additional psychiatric complaints, Reports as per HPI, Reports abnormal sleep pattern, Reports anxiety, Reports behavioral changes, Reports change in appetite, Reports depression, Reports difficulty concentrating, Reports auditory hallucinations, Reports hopelessness, Reports irritability, Reports anhedonia, Reports mood swings, Reports paranoia and Reports suicidal ideation Mental Status Exam Mental Status Exam Patient Appearance: Fatigued and Disheveled Patient Orientation: Person, Place, Time and Situation Level of Consciousness: Awake, Drowsy and Sedated Patient Behavior: Dependent, Passive, Sedated, Avoidant, Fatigued, Distractible and Poor Eye Contact Mood Description: Depressed Affect Description: Flat Patient Cognition Impaired: No Ability to Follow Directions: Fair Speech Pattern: Spontaneous Speech and Soft-Spoken Memory Description: Intact Diagnostics Vital Signs (24Hr): Vital Signs - 24 hr 08/30/20 17:50 08/31/20 06:00 Temperature 97.4 F 97.7 F Pulse Rate 81 79 Respiratory Rate 14 16 Blood Pressure 130/77 128/91 H Pulse Oximetry 98 98 Body Mass Index 25.1 Labs Results: 08/29/20 13:10 08/29/20 13:10 Medications Medications Current Medications Generic Name Dose Route Start Last Admin Trade Name Freq PRN Reason Stop Dose Admin Acetaminophen 650 mg 08/30/20 01:48 Acetaminophen 325 Mg Tablet PO Q6H PRN Headache/Pain Mild Scale (1-3) Al Hydroxide/Mg Hydroxide 30 ml 08/30/20 01:48 Magnesium Hydrox/Alum Hydrox 30 Ml Oral.Susp PO Q6H PRN Heartburn/Nausea Cyclobenzaprine HCl 10 mg 08/29/20 23:13 Cyclobenzaprine Hcl 10 Mg Tablet PO BID PRN muscle cramps Hydroxyzine HCl 25 mg 08/30/20 01:48 Hydroxyzine Hcl 25 Mg Tablet PO BEDTIME PRN Anxiety Magnesium Hydroxide 30 ml 08/30/20 01:48 Milk Of Magnesia 30 Ml Oral.Susp PO DAILY PRN Constipation Olanzapine 5 mg 08/30/20 09:00 08/31/20 08:48 Olanzapine 5 Mg Tablet PO 5 mg DAILY SON Administration Pharmacy Consult 1 each 08/29/20 14:24 Consult Rx Perform Med Rec MISCELLANE ONCE PRN Consult order Sertraline HCl 50 mg 08/30/20 09:00 08/31/20 08:48 Sertraline Hcl 50 Mg Tablet PO 50 mg DAILY SON Administration Trazodone HCl 50 mg 08/30/20 01:48 Trazodone Hcl 50 Mg Tablet PO BEDTIME PRN Insomnia Allergies Allergies Allergy/AdvReac Type Severity Reaction Status Date / Time No Known Allergies Allergy Verified 01/27/20 14:58 Assessment & Plan Assessment & Plan (1) Post traumatic stress disorder (PTSD): Status: Acute Code(s): F43.10 - Post-traumatic stress disorder, unspecified (2) Adjustment disorder with mixed disturbance of emotions and conduct: Status: Acute Code(s): F43.25 - Adjustment disorder with mixed disturbance of emotions and conduct (3) Major depressive disorder: Status: Acute Code(s): F32.9 - Major depressive disorder, single episode, unspecified Assessment and Plan: 39 yo male reports an increase in depressive symptoms with SI an plan to be killed by police. Pt reports he ran out of medications, did not attend out patient appointments, returned to cocaine use along with use of benzodiazepines and from his partner, losing his housing. Plan: Re-start Olanzapine, Sertraline, Flexoril, Trazodone Collateral contacts Referrals for ongoing care Labs: RE-order A1C, Lipids, TSH due to refusing today (4) Cocaine-induced mood disorder with depressive symptoms: Status: Acute Code(s): F14.94 - Cocaine use, unspecified with cocaine-induced mood disorder Greater than 50% of the session was spent on counseling and/or coordination of care Reason for contiued inpatient stay Substantial Risk for: harm to self, inability to function and med/psych de compensation
[2020-08-31 16:48] VITALS: BP 132/77; PULSE 76; TEMP 36.6; O2SAT 99
[2020-09-01] MEDS: Sertraline HCL 50 MG TABLET PO (10:10)
[2020-09-01] MEDS: OLANZapine 5 MG TABLET PO (10:10)
[2020-09-01 10:22] VITALS: BP 150/66; PULSE 103; RESP 16; TEMP 36.3; O2SAT 98
--- NOTE | 2020-09-01 11:28 | HO.PSYCHPN ---
Subjective Subjective Date of Service: 09/01/20 Reason For Visit: psychiatric crisis Interim History: pt refusing labs. signed CV. continues to be irritable, report he slept well last night Review of Systems Review of Systems Yes all other systems are reviewed and are negative Constitutional: Reports as per HPI and Reports no additional constitutional complaints Eyes: Reports as per HPI and Reports no additional eye complaints Reports system reviewed and no additional complaints, except as documented and Reports as per HPI Cardiovascular: Reports as per HPI and Reports no additional cardiovascular complaints Respiratory: Reports as per HPI and Reports no additional respiratory complaints Gastrointestinal: Reports as per HPI and Reports no additional gastrointestinal complaints Genitourinary: Reports no additional male genitourinary complaints and Reports as per HPI Musculoskeletal: Reports no additional musculoskeletal complaints and Reports as per HPI Reports system reviewed and no additional complaints, except as documented, Reports as per HPI and Reports behavioral changes Psychiatric: Reports no additional psychiatric complaints, Reports as per HPI, Reports abnormal sleep pattern, Reports anxiety, Reports behavioral changes, Reports change in appetite, Reports depression, Reports difficulty concentrating, Reports auditory hallucinations, Reports hopelessness, Reports irritability, Reports anhedonia, Reports mood swings, Reports paranoia and Reports suicidal ideation Mental Status Exam Mental Status Exam Patient Appearance: Fatigued and Disheveled Patient Orientation: Person, Place, Time and Situation Level of Consciousness: Awake, Drowsy and Sedated Patient Behavior: Dependent, Passive, Sedated, Avoidant, Fatigued, Distractible and Poor Eye Contact Mood Description: Depressed Affect Description: Flat Patient Cognition Impaired: No Ability to Follow Directions: Fair Speech Pattern: Spontaneous Speech and Soft-Spoken Memory Description: Intact Judgement: Fair Diagnostics Vital Signs (24Hr): Vital Signs - 24 hr 08/31/20 16:48 09/01/20 10:22 Temperature 97.8 F 97.4 F Pulse Rate 76 103 H Respiratory Rate 16 Blood Pressure 132/77 150/66 H Pulse Oximetry 99 98 Body Mass Index 25.1 Labs Results: 08/29/20 13:10 08/29/20 13:10 Medications Medications Current Medications Generic Name Dose Route Start Last Admin Trade Name Freq PRN Reason Stop Dose Admin Acetaminophen 650 mg 08/30/20 01:48 Acetaminophen 325 Mg Tablet PO Q6H PRN Headache/Pain Mild Scale (1-3) Al Hydroxide/Mg Hydroxide 30 ml 08/30/20 01:48 Magnesium Hydrox/Alum Hydrox 30 Ml Oral.Susp PO Q6H PRN Heartburn/Nausea Cyclobenzaprine HCl 10 mg 08/29/20 23:13 Cyclobenzaprine Hcl 10 Mg Tablet PO BID PRN muscle cramps Hydroxyzine HCl 25 mg 08/30/20 01:48 Hydroxyzine Hcl 25 Mg Tablet PO BEDTIME PRN Anxiety Hydroxyzine HCl 10 mg 09/01/20 11:30 Hydroxyzine Hcl 10 Mg Tablet PO BID SON Magnesium Hydroxide 30 ml 08/30/20 01:48 Milk Of Magnesia 30 Ml Oral.Susp PO DAILY PRN Constipation Olanzapine 5 mg 08/30/20 09:00 09/01/20 10:10 Olanzapine 5 Mg Tablet PO 5 mg DAILY SON Administration Pharmacy Consult 1 each 08/29/20 14:24 Consult Rx Perform Med Rec MISCELLANE ONCE PRN Consult order Sertraline HCl 50 mg 08/30/20 09:00 09/01/20 10:10 Sertraline Hcl 50 Mg Tablet PO 50 mg DAILY SON Administration Trazodone HCl 50 mg 08/30/20 01:48 Trazodone Hcl 50 Mg Tablet PO BEDTIME PRN Insomnia Allergies Allergies Allergy/AdvReac Type Severity Reaction Status Date / Time No Known Allergies Allergy Verified 01/27/20 14:58 Assessment & Plan Assessment & Plan (1) Post traumatic stress disorder (PTSD): Status: Acute Code(s): F43.10 - Post-traumatic stress disorder, unspecified (2) Adjustment disorder with mixed disturbance of emotions and conduct: Status: Acute Code(s): F43.25 - Adjustment disorder with mixed disturbance of emotions and conduct (3) Major depressive disorder: Status: Acute Code(s): F32.9 - Major depressive disorder, single episode, unspecified Assessment and Plan: 39 yo male reports an increase in depressive symptoms with SI an plan to be killed by police. Pt reports he ran out of medications, did not attend out patient appointments, returned to cocaine use along with use of benzodiazepines and from his partner, losing his housing. Plan: add hydroxyzine 10 mg BID labs still pending Continue Olanzapine, Sertraline, Flexoril, Trazodone Collateral contacts Referrals for ongoing care (4) Cocaine-induced mood disorder with depressive symptoms: Status: Acute Code(s): F14.94 - Cocaine use, unspecified with cocaine-induced mood disorder Greater than 50% of the session was spent on counseling and/or coordination of care Reason for contiued inpatient stay Substantial Risk for: inability to function, rapid decompensation and med/psych decompensation
[2020-09-01] MEDS: hydrOXYzine HCL 10 MG TABLET PO ×2 (13:18→21:14)
[2020-09-01 13:22] VITALS: BP 114/55; PULSE 74
[2020-09-01 16:54] VITALS: BP 106/52; PULSE 69; TEMP 37.2; O2SAT 98
[2020-09-02 06:00] VITALS: BP 108/51; PULSE 75; TEMP 37; O2SAT 98
[2020-09-02] MEDS: Sertraline HCL 50 MG TABLET PO (08:22)
[2020-09-02] MEDS: OLANZapine 5 MG TABLET PO (08:22)
[2020-09-02] MEDS: hydrOXYzine HCL 10 MG TABLET PO (08:22)
[2020-09-02] MEDS: Acetaminophen 325 MG TABLET 650 MG PO (08:38)
--- NOTE | 2020-09-02 12:25 | P.PNPSI_ITS ---
Subjective Subjective Date of Service: 09/02/20 Reason For Visit: psychiatric crisis Interim History: BPs running low after start of atarax. changed atarax to prn . less irritable, report he slept well last night Review of Systems Review of Systems Yes all other systems are reviewed and are negative Constitutional: Reports as per HPI and Reports no additional constitutional complaints Eyes: Reports as per HPI and Reports no additional eye complaints Reports system reviewed and no additional complaints, except as documented and Reports as per HPI Cardiovascular: Reports as per HPI and Reports no additional cardiovascular complaints Respiratory: Reports as per HPI and Reports no additional respiratory complaints Gastrointestinal: Reports as per HPI and Reports no additional gastrointestinal complaints Genitourinary: Reports no additional male genitourinary complaints and Reports as per HPI Musculoskeletal: Reports no additional musculoskeletal complaints and Reports as per HPI Reports system reviewed and no additional complaints, except as documented, Reports as per HPI and Reports behavioral changes Psychiatric: Reports no additional psychiatric complaints, Reports as per HPI, Reports abnormal sleep pattern, Reports anxiety, Reports behavioral changes, Reports change in appetite, Reports depression, Reports difficulty concentrating, Reports auditory hallucinations, Reports hopelessness, Reports irritability, Reports anhedonia, Reports mood swings, Reports paranoia and Reports suicidal ideation Mental Status Exam Mental Status Exam Patient Appearance: Fatigued and Disheveled Patient Orientation: Person, Place, Time and Situation Level of Consciousness: Awake, Drowsy and Sedated Patient Behavior: Dependent, Passive, Sedated, Avoidant, Fatigued, Distractible and Poor Eye Contact Mood Description: Depressed Affect Description: Flat Patient Cognition Impaired: No Ability to Follow Directions: Fair Speech Pattern: Spontaneous Speech and Soft-Spoken Memory Description: Intact Thought Process: Intact Thought Content: positive for [place] Judgement: Fair Diagnostics Vital Signs (24Hr): Vital Signs - 24 hr 09/01/20 13:22 09/01/20 16:54 09/02/20 06:00 Temperature 99.0 F 98.6 F Pulse Rate 74 69 75 Blood Pressure 114/55 L 106/52 L 108/51 L Pulse Oximetry 98 98 Body Mass Index 25.1 Labs Results: 08/29/20 13:10 08/29/20 13:10 Medications Medications Current Medications Generic Name Dose Route Start Last Admin Trade Name Freq PRN Reason Stop Dose Admin Acetaminophen 650 mg 08/30/20 01:48 09/02/20 08:38 Acetaminophen 325 Mg Tablet PO 650 mg Q6H PRN Administration Headache/Pain Mild Scale (1-3) Al Hydroxide/Mg Hydroxide 30 ml 08/30/20 01:48 Magnesium Hydrox/Alum Hydrox 30 Ml Oral.Susp PO Q6H PRN Heartburn/Nausea Cyclobenzaprine HCl 10 mg 08/29/20 23:13 Cyclobenzaprine Hcl 10 Mg Tablet PO BID PRN muscle cramps Hydroxyzine HCl 25 mg 08/30/20 01:48 Hydroxyzine Hcl 25 Mg Tablet PO BEDTIME PRN Anxiety Hydroxyzine HCl 10 mg 09/01/20 11:30 09/02/20 08:22 Hydroxyzine Hcl 10 Mg Tablet PO 10 mg BID SON Administration Magnesium Hydroxide 30 ml 08/30/20 01:48 Milk Of Magnesia 30 Ml Oral.Susp PO DAILY PRN Constipation Olanzapine 5 mg 08/30/20 09:00 09/02/20 08:22 Olanzapine 5 Mg Tablet PO 5 mg DAILY SON Administration Pharmacy Consult 1 each 08/29/20 14:24 Consult Rx Perform Med Rec MISCELLANE ONCE PRN Consult order Sertraline HCl 50 mg 08/30/20 09:00 09/02/20 08:22 Sertraline Hcl 50 Mg Tablet PO 50 mg DAILY SON Administration Trazodone HCl 50 mg 08/30/20 01:48 Trazodone Hcl 50 Mg Tablet PO BEDTIME PRN Insomnia Allergies Allergies Allergy/AdvReac Type Severity Reaction Status Date / Time No Known Allergies Allergy Verified 01/27/20 14:58 Assessment & Plan Assessment & Plan (1) Post traumatic stress disorder (PTSD): Status: Acute Code(s): F43.10 - Post-traumatic stress disorder, unspecified (2) Adjustment disorder with mixed disturbance of emotions and conduct: Status: Acute Code(s): F43.25 - Adjustment disorder with mixed disturbance of emotions and conduct (3) Major depressive disorder: Status: Acute Code(s): F32.9 - Major depressive disorder, single episode, unspecified Assessment and Plan: 39 yo male reports an increase in depressive symptoms with SI an plan to be ki lled by police. Pt reports he ran out of medications, did not attend out patient appointments, returned to cocaine use along with use of benzodiazepines and from his partner, losing his housing. Plan: change hydroxyzine 10 mg BID PRN labs still pending Continue Olanzapine, Sertraline, Flexoril, Trazodone Collateral contacts Referrals for ongoing care (4) Cocaine-induced mood disorder with depressive symptoms: Status: Acute Code(s): F14.94 - Cocaine use, unspecified with cocaine-induced mood disorder Greater than 50% of the session was spent on counseling and/or coordination of care Reason for contiued inpatient stay Substantial Risk for: harm to self, rapid decompensation and med/psych decompensation
[2020-09-02 16:15] VITALS: BP 117/65; PULSE 93; TEMP 37.2
[2020-09-02] MEDS: hydrOXYzine HCL 25 MG TABLET PO (21:22)
[2020-09-03 06:00] VITALS: BP 115/71; PULSE 66; RESP 16; TEMP 36.9; O2SAT 98
[2020-09-03] MEDS: Sertraline HCL 50 MG TABLET PO (09:23)
[2020-09-03] MEDS: OLANZapine 5 MG TABLET PO (09:23)
--- NOTE | 2020-09-03 13:20 | PC.NURSE ---
Followed up with pt, who reported he no longer wants any NRT.
[2020-09-03 15:50] VITALS: BP 113/65; PULSE 89; TEMP 37.1
--- NOTE | 2020-09-03 17:11 | HO.PSYCHPN ---
Subjective Subjective Date of Service: 09/03/20 Reason For Visit: PTSD, Depression, Adj disorder, cocaine use d/o Subjective Notes: Conditional Voluntary Healthcare Proxy: No Guardianship: No Medical Problems Affecting Mental Status: No Interim History: Myron reports medication regime to be helpful, however, sleep is still not satisfactory. Pt in bed until later afternoon-reports cycle may be reversing and he believes he uses sleep to avoid overthinking. Reports pain, bilateral shoulder area which effects sleep. Medication Compliance: Yes Side effects from medications: No Attending Groups: No Review of Systems Psychiatric: Reports abnormal sleep pattern and Reports depression Mental Status Exam Mental Status Exam Patient Appearance: Disheveled Patient Orientation: Person, Place, Time and Situation Level of Consciousness: Sedated Patient Behavior: Passive, Avoidant and Isolative Mood Description: Depressed Affect Description: Flat Patient Cognition Impaired: No Ability to Follow Directions: Good Speech Pattern: Spontaneous Speech Memory Description: Episodic Impaired Hallucinations: None Delusions: Not Present Thought Process: Distracted Thought Content: positive for [place] and positive for Circumstantial Depressive Symptoms: Insomnia, Diff. Making Decisions, Difficulty Sleeping, Sleeping More Than Usual, Increased Fatigue, Loss of Energy and Difficulty Concentrating Judgement: Fair Diagnostics Vital Signs (24Hr): Vital Signs - 24 hr 09/03/20 06:00 09/03/20 15:50 Temperature 98.4 F 98.8 F Pulse Rate 66 89 Respiratory Rate 16 Blood Pressure 115/71 113/65 Pulse Oximetry 98 Body Mass Index 25.1 Labs Results: 08/29/20 13:10 08/29/20 13:10 Medications Medications Current Medications Generic Name Dose Route Start Last Admin Trade Name Martinq PRN Reason Stop Dose Admin Acetaminophen 650 mg 08/30/20 01:48 09/02/20 08:38 Acetaminophen 325 Mg Tablet PO 650 mg Q6H PRN Administration Headache/Pain Mild Scale (1-3) Al Hydroxide/Mg Hydroxide 30 ml 08/30/20 01:48 Magnesium Hydrox/Alum Hydrox 30 Ml Oral.Susp PO Q6H PRN Heartburn/Nausea Cyclobenzaprine HCl 10 mg 08/29/20 23:13 Cyclobenzaprine Hcl 10 Mg Tablet PO BID PRN muscle cramps Hydroxyzine HCl 25 mg 08/30/20 01:48 09/02/20 21:22 Hydroxyzine Hcl 25 Mg Tablet PO 25 mg BEDTIME PRN Administration Anxiety Hydroxyzine HCl 10 mg 09/02/20 16:33 Hydroxyzine Hcl 10 Mg Tablet PO BID PRN anxiety/restlessness Magnesium Hydroxide 30 ml 08/30/20 01:48 Milk Of Magnesia 30 Ml Oral.Susp PO DAILY PRN Constipation Olanzapine 5 mg 08/30/20 09:00 09/03/20 09:23 Olanzapine 5 Mg Tablet PO 5 mg DAILY SON Administration Pharmacy Consult 1 each 08/29/20 14:24 Consult Rx Perform Med Rec MISCELLANE ONCE PRN Consult order Sertraline HCl 50 mg 08/30/20 09:00 09/03/20 09:23 Sertraline Hcl 50 Mg Tablet PO 50 mg DAILY SON Administration Trazodone HCl 50 mg 08/30/20 01:48 Trazodone Hcl 50 Mg Tablet PO BEDTIME PRN Insomnia Allergies Allergies Allergy/AdvReac Type Severity Reaction Status Date / Time No Known Allergies Allergy Verified 01/27/20 14:58 Assessment & Plan Assessment & Plan (1) Post traumatic stress disorder (PTSD): Status: Acute Code(s): F43.10 - Post-traumatic stress disorder, unspecified (2) Adjustment disorder with mixed disturbance of emotions and conduct: Status: Acute Code(s): F43.25 - Adjustment disorder with mixed disturbance of emotions and conduct (3) Major depressive disorder: Status: Acute Code(s): F32.9 - Major depressive disorder, single episode, unspecified Assessment and Plan: 39 yo male reports an increase in depressive symptoms with SI an plan to be killed by police. Pt reports he ran out of medications, did not attend out patient appointments, returned to cocaine use along with use of benzodiazepines and from his partner, losing his housing. Plan: Continue Olanzapine, Sertraline, Flexoril, Trazodone Collateral contacts Referrals for ongoing care (4) Cocaine-induced mood disorder with depressive symptoms: Status: Acute Code(s): F14.94 - Cocaine use, unspecified with cocaine-induced mood disorder Greater than 50% of the session was spent on counseling and/or coordination of care Patient educated on: medication risk/benefits Informed Consent: further education needed Reason for contiued inpatient stay Substantial Risk for: harm to self, inability to function and rapid decompensation
[2020-09-04 06:00] VITALS: BP 92/55; PULSE 59; RESP 16; TEMP 36.6; O2SAT 98
[2020-09-04] MEDS: Sertraline HCL 50 MG TABLET PO (09:02)
[2020-09-04] MEDS: OLANZapine 5 MG TABLET PO (09:02)
--- NOTE | 2020-09-04 13:32 | P.PNPSI_ITS ---
Subjective Subjective Date of Service: 09/04/20 Reason For Visit: PTSD, Depression, Adj disorder, cocaine use d/o Subjective Notes: Conditional Voluntary Healthcare Proxy: No Guardianship: No Medical Problems Affecting Mental Status: No Interim History: I am not sleeping and I don't know why. Discussed his perceptions of insomnia. Reports no SI, depressive sx still present, attempting to get into a program-called [facility] today and was told there are no availabilities. Hopes he can go to a program in [place] where his brother is currently receiving treatment as brother has given this a positive recommendation. Denies med SE. Medication Compliance: Yes Side effects from medications: No Attending Groups: No Review of Systems Psychiatric: Reports abnormal sleep pattern, Reports depression and Reports suicidal ideation (denies) Mental Status Exam Mental Status Exam Patient Appearance: Appropriate Patient Orientation: Person, Place, Time and Situation Level of Consciousness: Awake and Alert Patient Behavior: Talkative and Good Eye Contact Mood Description: Depressed and Anxious Affect Description: Flat Patient Cognition Impaired: No Ability to Follow Directions: Good Speech Pattern: Spontaneous Speech Memory Description: Episodic Impaired Hallucinations: None Delusions: Not Present Thought Process: Intact and Rumination Thought Content: positive for [place] and positive for Circumstantial Depressive Symptoms: Insomnia, Diff. Making Decisions and Difficulty Sleeping Judgement: Fair Diagnostics Vital Signs (24Hr): Vital Signs - 24 hr 09/03/20 15:50 09/04/20 06:00 Temperature 98.8 F 98 F Pulse Rate 89 59 Respiratory Rate 16 Blood Pressure 113/65 92/55 L Pulse Oximetry 98 Body Mass Index 25.1 Labs Results: 08/29/20 13:10 08/29/20 13:10 Medications Medications Current Medications Generic Name Dose Route Start Last Admin Trade Name Freq PRN Reason Stop Dose Admin Acetaminophen 650 mg 08/30/20 01:48 09/02/20 08:38 Acetaminophen 325 Mg Tablet PO 650 mg Q6H PRN Administration Headache/Pain Mild Scale (1-3) Al Hydroxide/Mg Hydroxide 30 ml 08/30/20 01:48 Magnesium Hydrox/Alum Hydrox 30 Ml Oral.Susp PO Q6H PRN Heartburn/Nausea Cyclobenzaprine HCl 10 mg 08/29/20 23:13 Cyclobenzaprine Hcl 10 Mg Tablet PO BID PRN muscle cramps Hydroxyzine HCl 25 mg 08/30/20 01:48 09/02/20 21:22 Hydroxyzine Hcl 25 Mg Tablet PO 25 mg BEDTIME PRN Administration Anxiety Hydroxyzine HCl 10 mg 09/02/20 16:33 Hydroxyzine Hcl 10 Mg Tablet PO BID PRN anxiety/restlessness Magnesium Hydroxide 30 ml 08/30/20 01:48 Milk Of Magnesia 30 Ml Oral.Susp PO DAILY PRN Constipation Olanzapine 5 mg 08/30/20 09:00 09/04/20 09:02 Olanzapine 5 Mg Tablet PO 5 mg DAILY SON Administration Pharmacy Consult 1 each 08/29/20 14:24 Consult Rx Perform Med Rec MISCELLANE ONCE PRN Consult order Sertraline HCl 50 mg 08/30/20 09:00 09/04/20 09:02 Sertraline Hcl 50 Mg Tablet PO 50 mg DAILY SON Administration Trazodone HCl 50 mg 08/30/20 01:48 Trazodone Hcl 50 Mg Tablet PO BEDTIME PRN Insomnia Allergies Allergies Allergy/AdvReac Type Severity Reaction Status Date / Time No Known Allergies Allergy Verified 01/27/20 14:58 Assessment & Plan Assessment & Plan (1) Post traumatic stress disorder (PTSD): Status: Acute Code(s): F43.10 - Post-traumatic stress disorder, unspecified (2) Adjustment disorder with mixed disturbance of emotions and conduct: Status: Acute Code(s): F43.25 - Adjustment disorder with mixed disturbance of emotions and conduct (3) Major depressive disorder: Status: Acute Code(s): F32.9 - Major depressive disorder, single episode, unspecified Assessment and Plan: 39 yo male reports an increase in depressive symptoms with SI an plan to be killed by police. Pt reports he ran out of medications, did not attend out patient appointments, returned to cocaine use along with use of benzodiazepines and from his partner, losing his housing. Plan: Continue Olanzapine, Sertraline, Flexoril Discontinue Trazodone Remeron 15 mg hs Collateral contacts Referrals for ongoing care (4) Cocaine-induced mood disorder with depressive symptoms: Status: Acute Code(s): F14.94 - Cocaine use, unspecified with cocaine-induced mood disorder Greater than 50% of the session was spent on counseling and/or coordination of care Reason for contiued inpatient stay Substantial Risk for: harm to self, inability to function and rapid decompensation
[2020-09-04 16:21] VITALS: BP 152/67; PULSE 88; RESP 18; TEMP 36.6; O2SAT 99
[2020-09-04] MEDS: Mirtazapine 15 MG TABLET PO (20:45)
[2020-09-05 07:00] VITALS: BMI 25.2
[2020-09-05] MEDS: OLANZapine 5 MG TABLET PO (08:38)
[2020-09-05] MEDS: Sertraline HCL 50 MG TABLET PO (08:38)
[2020-09-05 16:21] VITALS: BP 116/78; PULSE 72; RESP 18; TEMP 36.4; O2SAT 100
--- NOTE | 2020-09-05 16:35 | P.PNPSI_ITS ---
Subjective Subjective Date of Service: 09/05/20 Reason For Visit: PTSD, Depression, Adj disorder, cocaine use d/o Subjective Notes: Conditional Voluntary Healthcare Proxy: No Guardianship: No Medical Problems Affecting Mental Status: No Interim History: Pt reports mirtazapine to be effective in assisting with sleep. He requests to take it earlier as he has experienced daytime sedation. Medication Compliance: Yes Side effects from medications: Yes (daytime sedation from mirtazapine) Attending Groups: No Review of Systems Psychiatric: Reports abnormal sleep pattern and Reports depression Mental Status Exam Mental Status Exam Patient Appearance: Fatigued Patient Orientation: Person, Place, Time and Situation Level of Consciousness: Alert Patient Behavior: Talkative, Asleep, Fatigued and Poor Eye Contact Mood Description: Flat Affect Description: Flat Patient Cognition Impaired: No Ability to Follow Directions: Good Speech Pattern: Spontaneous Speech Memory Description: Episodic Impaired Hallucinations: None Delusions: Not Present Thought Process: Distracted Thought Content: positive for [place] and positive for Circumstantial Depressive Symptoms: Insomnia, Difficulty Sleeping and Difficulty Concentrating Judgement: Fair Diagnostics Vital Signs (24Hr): Vital Signs - 24 hr 09/05/20 16:21 Temperature 97.6 F Pulse Rate 72 Respiratory Rate 18 Blood Pressure 116/78 Pulse Oximetry 100 Body Mass Index 25.2 Labs Results: 08/29/20 13:10 08/29/20 13:10 Medications Medications Current Medications Generic Name Dose Route Start Last Admin Trade Name Freq PRN Reason Stop Dose Admin Acetaminophen 650 mg 08/30/20 01:48 09/02/20 08:38 Acetaminophen 325 Mg Tablet PO 650 mg Q6H PRN Administration Headache/Pain Mild Scale (1-3) Al Hydroxide/Mg Hydroxide 30 ml 08/30/20 01:48 Magnesium Hydrox/Alum Hydrox 30 Ml Oral.Susp PO Q6H PRN Heartburn/Nausea Cyclobenzaprine HCl 10 mg 08/29/20 23:13 Cyclobenzaprine Hcl 10 Mg Tablet PO BID PRN muscle cramps Hydroxyzine HCl 25 mg 08/30/20 01:48 09/02/20 21:22 Hydroxyzine Hcl 25 Mg Tablet PO 25 mg BEDTIME PRN Administration Anxiety Hydroxyzine HCl 10 mg 09/02/20 16:33 Hydroxyzine Hcl 10 Mg Tablet PO BID PRN anxiety/restlessness Magnesium Hydroxide 30 ml 08/30/20 01:48 Milk Of Magnesia 30 Ml Oral.Susp PO DAILY PRN Constipation Mirtazapine 15 mg 09/04/20 21:00 09/04/20 20:45 Mirtazapine 15 Mg Tablet PO 15 mg BEDTIME SON Administration Olanzapine 5 mg 08/30/20 09:00 09/05/20 08:38 Olanzapine 5 Mg Tablet PO 5 mg DAILY SON Administration Pharmacy Consult 1 each 08/29/20 14:24 Consult Rx Perform Med Rec MISCELLANE ONCE PRN Consult order Sertraline HCl 50 mg 08/30/20 09:00 09/05/20 08:38 Sertraline Hcl 50 Mg Tablet PO 50 mg DAILY SON Administration Allergies Allergies Allergy/AdvReac Type Severity Reaction Status Date / Time No Known Allergies Allergy Verified 01/27/20 14:58 Assessment & Plan Assessment & Plan (1) Post traumatic stress disorder (PTSD): Status: Acute Code(s): F43.10 - Post-traumatic stress disorder, unspecified (2) Adjustment disorder with mixed disturbance of emotions and conduct: Status: Acute Code(s): F43.25 - Adjustment disorder with mixed disturbance of emotions and conduct (3) Major depressive disorder: Status: Acute Code(s): F32.9 - Major depressive disorder, single episode, unspecified Assessment and Plan: 39 yo male reports an increase in depressive symptoms with SI an plan to be killed by police. Pt reports he ran out of medications, did not attend out patient appointments, returned to cocaine use along with use of benzodiazepines and from his partner, losing his housing. Plan: Continue Olanzapine, Sertraline, Flexoril Discontinue Trazodone Remeron 15 mg hs-change timing to 1999. Collateral contacts Referrals for ongoing care (4) Cocaine-induced mood disorder with depressive symptoms: Status: Acute Code(s): F14.94 - Cocaine use, unspecified with cocaine-induced mood disorder Greater than 50% of the session was spent on counseling and/or coordination of care Reason for contiued inpatient stay Substantial Risk for: harm to self, inability to function and rapid decompensation
[2020-09-05] MEDS: Mirtazapine 15 MG TABLET PO (20:43)
[2020-09-06 06:00] VITALS: BP 91/52; PULSE 65; RESP 16; TEMP 36.8; O2SAT 98
[2020-09-06] MEDS: Sertraline HCL 50 MG TABLET PO (09:05)
[2020-09-06] MEDS: OLANZapine 5 MG TABLET PO (09:05)
[2020-09-06 16:10] VITALS: BP 116/61; PULSE 64; TEMP 36.9
--- NOTE | 2020-09-06 16:37 | HO.PSYCHPN ---
Subjective Subjective Date of Service: 09/06/20 Reason For Visit: PTSD, Depression, Adj disorder, cocaine use d/o Subjective Notes: Conditional Voluntary Healthcare Proxy: No Guardianship: No Medical Problems Affecting Mental Status: No Interim History: Pt reports sleep has improved with the addition of Mirtazapine. He reports depressive symptoms are resolving. He is more visable in milieu today, out of bed more and interactive with peers and team He is hoping to have a CSS bed by early next week. Team reports on this admission they find him to be more engaged in treatment and motivated for ongoing treatment post discharge Medication Compliance: Yes Side effects from medications: No Attending Groups: Yes Review of Systems Review of Systems Yes all other systems are reviewed and are negative (pt denies sx.) Reports behavioral changes Psychiatric: Reports abnormal sleep pattern (pt reports this is improving with Mirtazapine), Reports behavioral changes, Reports depression and Reports suicidal ideation (denies) Mental Status Exam Mental Status Exam Patient Appearance: Appropriate Patient Orientation: Person, Place and Time Level of Consciousness: Awake and Alert Patient Behavior: Appropriate, Talkative, Cooperative and Good Eye Contact Mood Description: Depressed and Anxious Affect Description: Constricted and Anxious Patient Cognition Impaired: No Ability to Follow Directions: Good Speech Pattern: Clear, Appropriate, Spontaneous Speech and Coherent Memory Description: Episodic Impaired Hallucinations: None Delusions: Not Present Thought Process: Intact Thought Content: positive for Intact and positive for Suicidal Ideation (denies) Depressive Symptoms: Difficulty Sleeping (seems to be resolving with addition of Mirtazapine) Judgement: Fair Diagnostics Vital Signs (24Hr): Vital Signs - 24 hr 09/06/20 06:00 Temperature 98.3 F Pulse Rate 65 Respiratory Rate 16 Blood Pressure 91/52 L Pulse Oximetry 98 Body Mass Index 25.2 Labs Results: 08/29/20 13:10 08/29/20 13:10 Medications Medications Current Medications Generic Name Dose Route Start Last Admin Trade Name Freq PRN Reason Stop Dose Admin Acetaminophen 650 mg 08/30/20 01:48 09/02/20 08:38 Acetaminophen 325 Mg Tablet PO 650 mg Q6H PRN Administration Headache/Pain Mild Scale (1-3) Al Hydroxide/Mg Hydroxide 30 ml 08/30/20 01:48 Magnesium Hydrox/Alum Hydrox 30 Ml Oral.Susp PO Q6H PRN Heartburn/Nausea Cyclobenzaprine HCl 10 mg 08/29/20 23:13 Cyclobenzaprine Hcl 10 Mg Tablet PO BID PRN muscle cramps Hydroxyzine HCl 25 mg 08/30/20 01:48 09/02/20 21:22 Hydroxyzine Hcl 25 Mg Tablet PO 25 mg BEDTIME PRN Administration Anxiety Hydroxyzine HCl 10 mg 09/02/20 16:33 Hydroxyzine Hcl 10 Mg Tablet PO BID PRN anxiety/restlessness Magnesium Hydroxide 30 ml 08/30/20 01:48 Milk Of Magnesia 30 Ml Oral.Susp PO DAILY PRN Constipation Mirtazapine 15 mg 09/05/20 20:00 09/05/20 20:43 Mirtazapine 15 Mg Tablet PO 15 mg 1999 SON Administration Olanzapine 5 mg 08/30/20 09:00 09/06/20 09:05 Olanzapine 5 Mg Tablet PO 5 mg DAILY SON Administration Pharmacy Consult 1 each 08/29/20 14:24 Consult Rx Perform Med Rec MISCELLANE ONCE PRN Consult order Sertraline HCl 50 mg 08/30/20 09:00 09/06/20 09:05 Sertraline Hcl 50 Mg Tablet PO 50 mg DAILY SON Administration Allergies Allergies Allergy/AdvReac Type Severity Reaction Status Date / Time No Known Allergies Allergy Verified 01/27/20 14:58 Assessment & Plan Assessment & Plan (1) Post traumatic stress disorder (PTSD): Status: Acute Code(s): F43.10 - Post-traumatic stress disorder, unspecified (2) Adjustment disorder with mixed disturbance of emotions and conduct: Status: Acute Code(s): F43.25 - Adjustment disorder with mixed disturbance of emotions and conduct (3) Major depressive disorder: Status: Acute Code(s): F32.9 - Major depressive disorder, single episode, unspecified Assessment and Plan: 39 yo male reports an increase in depressive symptoms with SI an plan to be killed by police. Pt reports he ran out of medications, did not attend out patient appointments, returned to cocaine use along with use of benzodiazepines and from his partner, losing his housing. Plan: Continue Olanzapine, Sertraline, Flexoril Discontinue Trazodone Remeron 15 mg hs-change timing to 1999. Collateral contacts Referrals for ongoing care (4) Cocaine-induced mood disorder with depressive symptoms: Status: Acute Code(s): F14.94 - Cocaine use, unspecified with cocaine-induced mood disorder Greater than 50% of the session was spent on counseling and/or coordination of care Patient educated on: medication risk/benefits and therapeutic strategies Informed Consent: understands and further education needed Reason for contiued inpatient stay Substantial Risk for: harm to self, inability to function and rapid decompensation
[2020-09-06] MEDS: Mirtazapine 15 MG TABLET PO (21:15)
[2020-09-07] MEDS: OLANZapine 5 MG TABLET PO (08:43)
[2020-09-07] MEDS: Sertraline HCL 50 MG TABLET PO (08:43)
[2020-09-07 08:57] VITALS: BP 136/72; PULSE 76; RESP 16; TEMP 36.4; O2SAT 98
[2020-09-07 15:55] VITALS: BP 145/67; PULSE 80; TEMP 36.8
--- NOTE | 2020-09-07 19:37 | P.PNPSI_ITS ---
Subjective Subjective Date of Service: 09/07/20 Reason For Visit: PTSD, Depression, Adj disorder, cocaine use d/o Interim History: Patient seen, chart reviewed, case discussed with nursing staff Patient lying in bed on approach, with neatly groomed haircut garzon and mustache. He says his mood is good and denies any SI or hi or a VH. He feels that his depression has resolved. Patient talked about leaving sometime next week, but is also interested in getting into a group program. He does say he has court on Wednesday. he denies any complaints and has no requests Mental Status Exam Mental Status Exam Narrative: Appearance: Appropriate Patient Orientation: Person, Place and Time Level of Consciousness: Awake and Alert Patient Behavior: Appropriate, Cooperative and Good Eye Contact Mood Description: good Affect Description: Congruent Patient Cognition Impaired: No Ability to Follow Directions: Good Speech Pattern: Clear, Appropriate, Spontaneous Speech and Coherent Memory Description: Episodic Impaired Hallucinations: None Delusions: Not Present Thought Process: Intact Thought Content: denies SI/HI Depressive Symptoms: reports resolved Judgment: Fair Diagnostics Vital Signs (24Hr): Vital Signs - 24 hr 09/07/20 08:57 09/07/20 15:55 Temperature 97.5 F 98.2 F Pulse Rate 76 80 Respiratory Rate 16 Blood Pressure 136/72 145/67 H Pulse Oximetry 98 Body Mass Index 25.2 Labs Results: 08/29/20 13:10 08/29/20 13:10 Medications Medications Current Medications Generic Name Dose Route Start Last Admin Trade Name Freq PRN Reason Stop Dose Admin Acetaminophen 650 mg 08/30/20 01:48 09/02/20 08:38 Acetaminophen 325 Mg Tablet PO 650 mg Q6H PRN Administration Headache/Pain Mild Scale (1-3) Al Hydroxide/Mg Hydroxide 30 ml 08/30/20 01:48 Magnesium Hydrox/Alum Hydrox 30 Ml Oral.Susp PO Q6H PRN Heartburn/Nausea Cyclobenzaprine HCl 10 mg 08/29/20 23:13 Cyclobenzaprine Hcl 10 Mg Tablet PO BID PRN muscle cramps Hydroxyzine HCl 25 mg 08/30/20 01:48 09/02/20 21:22 Hydroxyzine Hcl 25 Mg Tablet PO 25 mg BEDTIME PRN Administration Anxiety Hydroxyzine HCl 10 mg 09/02/20 16:33 Hydroxyzine Hcl 10 Mg Tablet PO BID PRN anxiety/restlessness Magnesium Hydroxide 30 ml 08/30/20 01:48 Milk Of Magnesia 30 Ml Oral.Susp PO DAILY PRN Constipation Mirtazapine 15 mg 09/05/20 20:00 09/06/20 21:15 Mirtazapine 15 Mg Tablet PO 15 mg 2000 SON Administration Olanzapine 5 mg 08/30/20 09:00 09/07/20 08:43 Olanzapine 5 Mg Tablet PO 5 mg DAILY SON Administration Pharmacy Consult 1 each 08/29/20 14:24 Consult Rx Perform Med Rec MISCELLANE ONCE PRN Consult order Sertraline HCl 50 mg 08/30/20 09:00 09/07/20 08:43 Sertraline Hcl 50 Mg Tablet PO 50 mg DAILY SON Administration Allergies Allergies Allergy/AdvReac Type Severity Reaction Status Date / Time No Known Allergies Allergy Verified 01/27/20 14:58 Assessment & Plan Assessment & Plan (1) Post traumatic stress disorder (PTSD): Status: Acute Code(s): F43.10 - Post-traumatic stress disorder, unspecified (2) Adjustment disorder with mixed disturbance of emotions and conduct: Status: Acute Code(s): F43.25 - Adjustment disorder with mixed disturbance of emotions and conduct (3) Major depressive disorder: Status: Acute Code(s): F32.9 - Major depressive disorder, single episode, unspecified Assessment and Plan: 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 Pt reports he ran out of medications, did not attend out patient appointments, returned to cocaine use along with use of benzodiazepines and from his partner, losing his housing. Plan: Continue Olanzapine, Sertraline, Flexoril Discontinue Trazodone Remeron 15 mg hs-change timing to 1999. Collateral contacts Referrals for ongoing care (4) Cocaine-induced mood disorder with depressive symptoms: Status: Acute Code(s): F14.94 - Cocaine use, unspecified with cocaine-induced mood disorder Greater than 50% of the session was spent on counseling and/or coordination of care Reason for contiued inpatient stay Substantial Risk for: med/psych decompensation
[2020-09-07] MEDS: Mirtazapine 15 MG TABLET PO (20:50)
[2020-09-08 06:00] VITALS: BP 135/68; PULSE 82; RESP 16; TEMP 36.4; O2SAT 98
[2020-09-08] MEDS: Sertraline HCL 50 MG TABLET PO (08:47)
[2020-09-08] MEDS: OLANZapine 5 MG TABLET PO (08:47)
[2020-09-08] MEDS: hydrOXYzine HCL 10 MG TABLET PO (15:05)
[2020-09-08 16:10] VITALS: BP 127/58; PULSE 97; TEMP 36.3
--- NOTE | 2020-09-08 18:07 | HO.PSYCHPN ---
Subjective Subjective Date of Service: 09/08/20 Reason For Visit: PTSD, Depression, Adj disorder, cocaine use d/o Interim History: Patient seen, chart reviewed, case discussed with nursing staff Patient reports that his mood is ?pretty good;? he continues to deny any SI/HI/AVH and says he's sleeping well. He would like to get into a CSS. Patient denies any medication side effects and would like to continue on current regimen. No requests, no complaints Mental Status Exam Mental Status Exam Narrative: Appearance: Appropriate Patient Orientation: Person, Place and Time Level of Consciousness: Awake and Alert Patient Behavior: Appropriate, Cooperative and Good Eye Contact Mood Description: good Affect Description: Congruent Patient Cognition Impaired: No Ability to Follow Directions: Good Speech Pattern: Clear, Appropriate, Spontaneous Speech and Coherent Memory Description: Episodic Impaired Hallucinations: None Delusions: Not Present Thought Process: Intact Thought Content: denies SI/HI Depressive Symptoms: reports resolved Judgment: Fair Diagnostics Vital Signs (24Hr): Vital Signs - 24 hr 09/08/20 06:00 Temperature 97.5 F Pulse Rate 82 Respiratory Rate 16 Blood Pressure 135/68 Pulse Oximetry 98 Body Mass Index 25.2 Labs Results: 08/29/20 13:10 08/29/20 13:10 Medications Medications Current Medications Generic Name Dose Route Start Last Admin Trade Name Freq PRN Reason Stop Dose Admin Acetaminophen 650 mg 08/30/20 01:48 09/02/20 08:38 Acetaminophen 325 Mg Tablet PO 650 mg Q6H PRN Administration Headache/Pain Mild Scale (1-3) Al Hydroxide/Mg Hydroxide 30 ml 08/30/20 01:48 Magnesium Hydrox/Alum Hydrox 30 Ml Oral.Susp PO Q6H PRN Heartburn/Nausea Cyclobenzaprine HCl 10 mg 08/29/20 23:13 Cyclobenzaprine Hcl 10 Mg Tablet PO BID PRN muscle cramps Hydroxyzine HCl 25 mg 08/30/20 01:48 09/02/20 21:22 Hydroxyzine Hcl 25 Mg Tablet PO 25 mg BEDTIME PRN Administration Anxiety Hydroxyzine HCl 10 mg 09/02/20 16:33 09/08/20 15:05 Hydroxyzine Hcl 10 Mg Tablet PO 10 mg BID PRN Administration anxiety/restlessness Magnesium Hydroxide 30 ml 08/30/20 01:48 Milk Of Magnesia 30 Ml Oral.Susp PO DAILY PRN Constipation Mirtazapine 15 mg 09/05/20 20:00 09/07/20 20:50 Mirtazapine 15 Mg Tablet PO 15 mg 1999 SON Administration Olanzapine 5 mg 08/30/20 09:00 09/08/20 08:47 Olanzapine 5 Mg Tablet PO 5 mg DAILY SON Administration Pharmacy Consult 1 each 08/29/20 14:24 Consult Rx Perform Med Rec MISCELLANE ONCE PRN Consult order Sertraline HCl 50 mg 08/30/20 09:00 09/08/20 08:47 Sertraline Hcl 50 Mg Tablet PO 50 mg DAILY SON Administration Allergies Allergies Allergy/AdvReac Type Severity Reaction Status Date / Time No Known Allergies Allergy Verified 01/27/20 14:58 Assessment & Plan Assessment & Plan (1) Post traumatic stress disorder (PTSD): Status: Acute Code(s): F43.10 - Post-traumatic stress disorder, unspecified (2) Adjustment disorder with mixed disturbance of emotions and conduct: Status: Acute Code(s): F43.25 - Adjustment disorder with mixed disturbance of emotions and conduct (3) Major depressive disorder: Status: Acute Code(s): F32.9 - Major depressive disorder, single episode, unspecified Assessment and Plan: 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 Pt reports he ran out of medications, did not attend out patient appointments, returned to cocaine use along with use of benzodiazepines and from his partner, losing his housing. Plan: Continue Olanzapine, Sertraline, Flexoril Discontinue Trazodone Remeron 15 mg hs-change timing to 1999. Collateral contacts Referrals for ongoing care (4) Cocaine-induced mood disorder with depressive symptoms: Status: Acute Code(s): F14.94 - Cocaine use, unspecified with cocaine-induced mood disorder Greater than 50% of the session was spent on counseling and/or coordination of care Reason for contiued inpatient stay Substantial Risk for: other
[2020-09-08] MEDS: Mirtazapine 15 MG TABLET PO (20:37)
[2020-09-09 06:43] VITALS: BP 112/57; PULSE 71; RESP 18; TEMP 36.8; O2SAT 96
[2020-09-09] MEDS: OLANZapine 5 MG TABLET PO (08:50)
[2020-09-09] MEDS: Sertraline HCL 50 MG TABLET PO (08:50)
--- NOTE | 2020-09-09 15:39 | P.PNPSI_ITS ---
Subjective Subjective Date of Service: 09/09/20 Reason For Visit: PTSD, Depression, Adj disorder, cocaine use d/o Subjective Notes: Conditional Voluntary Healthcare Proxy: No Guardianship: No Medical Problems Affecting Mental Status: No Interim History: Myron awaits admission to [facility] Bed for ongoing treatment. Reports sleep latency is still an issue for him. Once asleep he can maintain sleep but continues to struggle for a few hours to fall asleep. Reports regime to be tolerated, helpful. Denies other symptoms for our focus today. Medication Compliance: Yes Side effects from medications: Yes (sleep latency symptoms) Attending Groups: No Review of Systems Psychiatric: Reports abnormal sleep pattern, Reports anxiety, Reports difficulty concentrating, Reports hopelessness, Reports irritability and Reports suicidal ideation (denies) Mental Status Exam Mental Status Exam Patient Appearance: Fatigued Patient Orientation: Person, Place, Time and Situation Level of Consciousness: Alert Patient Behavior: Appropriate, Talkative, Cooperative, Sedated, Fatigued and Isolative Mood Description: Withdrawn Affect Description: Flat Patient Cognition Impaired: No Ability to Follow Directions: Good Speech Pattern: Spontaneous Speech and Soft-Spoken Memory Description: Intact Hallucinations: None Delusions: Not Present Thought Process: Intact and Distracted Thought Content: positive for [place], positive for Circumstantial and positive for Suicidal Ideation (denies) Depressive Symptoms: Insomnia (latency symptoms) and Difficulty Sleeping Judgement: Good Diagnostics Vital Signs (24Hr): Vital Signs - 24 hr 09/08/20 16:10 09/09/20 06:43 Temperature 97.3 F 98.3 F Pulse Rate 97 71 Respiratory Rate 18 Blood Pressure 127/58 L 112/57 L Pulse Oximetry 96 Body Mass Index 25.2 Labs Results: 08/29/20 13:10 08/29/20 13:10 Medications Medications Current Medications Generic Name Dose Route Start Last Admin Trade Name Freq PRN Reason Stop Dose Admin Acetaminophen 650 mg 08/30/20 01:48 09/02/20 08:38 Acetaminophen 325 Mg Tablet PO 650 mg Q6H PRN Administration Headache/Pain Mild Scale (1-3) Al Hydroxide/Mg Hydroxide 30 ml 08/30/20 01:48 Magnesium Hydrox/Alum Hydrox 30 Ml Oral.Susp PO Q6H PRN Heartburn/Nausea Cyclobenzaprine HCl 10 mg 08/29/20 23:13 Cyclobenzaprine Hcl 10 Mg Tablet PO BID PRN muscle cramps Hydroxyzine HCl 25 mg 08/30/20 01:48 09/02/20 21:22 Hydroxyzine Hcl 25 Mg Tablet PO 25 mg BEDTIME PRN Administration Anxiety Hydroxyzine HCl 10 mg 09/02/20 16:33 09/08/20 15:05 Hydroxyzine Hcl 10 Mg Tablet PO 10 mg BID PRN Administration anxiety/restlessness Magnesium Hydroxide 30 ml 08/30/20 01:48 Milk Of Magnesia 30 Ml Oral.Susp PO DAILY PRN Constipation Mirtazapine 15 mg 09/05/20 20:00 09/08/20 20:37 Mirtazapine 15 Mg Tablet PO 15 mg 2000 SON Administration Olanzapine 5 mg 08/30/20 09:00 09/09/20 08:50 Olanzapine 5 Mg Tablet PO 5 mg DAILY SON Administration Pharmacy Consult 1 each 08/29/20 14:24 Consult Rx Perform Med Rec MISCELLANE ONCE PRN Consult order Sertraline HCl 50 mg 08/30/20 09:00 09/09/20 08:50 Sertraline Hcl 50 Mg Tablet PO 50 mg DAILY SON Administration Trazodone HCl 25 mg 09/09/20 21:00 Trazodone Hcl 25 Mg Halftab PO BEDTIME SON Allergies Allergies Allergy/AdvReac Type Severity Reaction Status Date / Time No Known Allergies Allergy Verified 01/27/20 14:58 Assessment & Plan Assessment & Plan (1) Post traumatic stress disorder (PTSD): Status: Acute Code(s): F43.10 - Post-traumatic stress disorder, unspecified (2) Adjustment disorder with mixed disturbance of emotions and conduct: Status: Acute Code(s): F43.25 - Adjustment disorder with mixed disturbance of emotions and conduct (3) Major depressive disorder: Status: Acute Code(s): F32.9 - Major depressive disorder, single episode, unspecified Assessment and Plan: 39 yo male reports an increase in depressive symptoms with SI an plan to be killed by police. Pt reports he ran out of medications, did not attend out patient appointments, returned to cocaine use along with use of benzodiazepines and from his partner, losing his housing. Plan: Continue Olanzapine, Sertraline, Flexoril Begin Trazodone 25 mg HS. Pt reports sleep latency sx-He is able to maintain sleep with remeron and asks for help with latency sx. Remeron 15 mg hs-change timing to 1999. Collateral contacts Referrals for ongoing care (4) Cocaine-induced mood disorder with depressive symptoms: Status: Acute Code(s): F14.94 - Cocaine use, unspecified with cocaine-induced mood disorder Greater than 50% of the session was spent on counseling and/or coordination of care Reason for contiued inpatient stay Substantial Risk for: harm to self, inability to function and rapid decompensation
[2020-09-09] MEDS: traZODone HCL 25 MG HALFTAB PO (20:04)
[2020-09-09] MEDS: Mirtazapine 15 MG TABLET PO (20:04)
[2020-09-10] MEDS: OLANZapine 5 MG TABLET PO (08:45)
[2020-09-10] MEDS: Sertraline HCL 50 MG TABLET PO (08:45)
[2020-09-10 08:49] VITALS: BP 103/61; PULSE 70; RESP 16; TEMP 36.7; O2SAT 99
--- NOTE | 2020-09-10 14:25 | HO.PSYCHPN ---
Subjective Subjective Date of Service: 09/10/20 Reason For Visit: PTSD, Depression, Adj disorder, cocaine use d/o Subjective Notes: Conditional Voluntary Healthcare Proxy: No Guardianship: No Medical Problems Affecting Mental Status: No Interim History: Myron has been accepted at [facility] for 09/11/20. Medications were sent to [facility] [place]. Pt is relieved he has a rehab option post discharge and is satisfied with this plan of care. TSH FT4 WNL Medication Compliance: Yes Side effects from medications: No Attending Groups: Intermittent Review of Systems Psychiatric: Reports abnormal sleep pattern, Reports anxiety, Reports depression and Reports suicidal ideation (denies) Mental Status Exam Mental Status Exam Patient Appearance: Appropriate Patient Orientation: Person, Place, Time and Situation Level of Consciousness: Alert Patient Behavior: Talkative and Good Eye Contact Mood Description: Anxious Affect Description: Anxious Patient Cognition Impaired: No Ability to Follow Directions: Good Speech Pattern: Spontaneous Speech Memory Description: Intact Hallucinations: None Delusions: Not Present Thought Process: Intact Thought Content: positive for Intact and positive for Suicidal Ideation (denies) Depressive Symptoms: Increased Anxiety and Thoughts of /Suicide (denies) Judgement: Good Diagnostics Vital Signs (24Hr): Vital Signs - 24 hr 09/10/20 08:49 Temperature 98.0 F Pulse Rate 70 Respiratory Rate 16 Blood Pressure 103/61 Pulse Oximetry 99 Body Mass Index 25.2 Labs Results: 08/29/20 13:10 08/29/20 13:10 Medications Medications Current Medications Generic Name Dose Route Start Last Admin Trade Name Freq PRN Reason Stop Dose Admin Acetaminophen 650 mg 08/30/20 01:48 09/02/20 08:38 Acetaminophen 325 Mg Tablet PO 650 mg Q6H PRN Administration Headache/Pain Mild Scale (1-3) Al Hydroxide/Mg Hydroxide 30 ml 08/30/20 01:48 Magnesium Hydrox/Alum Hydrox 30 Ml Oral.Susp PO Q6H PRN Heartburn/Nausea Cyclobenzaprine HCl 10 mg 08/29/20 23:13 Cyclobenzaprine Hcl 10 Mg Tablet PO BID PRN muscle cramps Hydroxyzine HCl 25 mg 08/30/20 01:48 09/02/20 21:22 Hydroxyzine Hcl 25 Mg Tablet PO 25 mg BEDTIME PRN Administration Anxiety Hydroxyzine HCl 10 mg 09/02/20 16:33 09/08/20 15:05 Hydroxyzine Hcl 10 Mg Tablet PO 10 mg BID PRN Administration anxiety/restlessness Magnesium Hydroxide 30 ml 08/30/20 01:48 Milk Of Magnesia 30 Ml Oral.Susp PO DAILY PRN Constipation Mirtazapine 15 mg 09/05/20 20:00 09/09/20 20:04 Mirtazapine 15 Mg Tablet PO 15 mg 2000 SON Administration Olanzapine 5 mg 08/30/20 09:00 09/10/20 08:45 Olanzapine 5 Mg Tablet PO 5 mg DAILY SON Administration Pharmacy Consult 1 each 08/29/20 14:24 Consult Rx Perform Med Rec MISCELLANE ONCE PRN Consult order Sertraline HCl 50 mg 08/30/20 09:00 09/10/20 08:45 Sertraline Hcl 50 Mg Tablet PO 50 mg DAILY SON Administration Trazodone HCl 25 mg 09/09/20 21:00 09/09/20 20:04 Trazodone Hcl 25 Mg Halftab PO 25 mg BEDTIME SON Administration Allergies Allergies Allergy/AdvReac Type Severity Reaction Status Date / Time No Known Allergies Allergy Verified 01/27/20 14:58 Assessment & Plan Assessment & Plan (1) Post traumatic stress disorder (PTSD): Status: Acute Code(s): F43.10 - Post-traumatic stress disorder, unspecified (2) Adjustment disorder with mixed disturbance of emotions and conduct: Status: Acute Code(s): F43.25 - Adjustment disorder with mixed disturbance of emotions and conduct (3) Major depressive disorder: Status: Acute Code(s): F32.9 - Major depressive disorder, single episode, unspecified Assessment and Plan: 39 yo male reports an increase in depressive symptoms with SI an plan to be killed by police. Pt reports he ran out of medications, did not attend out patient appointments, returned to cocaine use along with use of benzodiazepines and from his partner, losing his housing. Plan: Continue Olanzapine, Sertraline, Flexoril Begin Trazodone 25 mg HS. Pt reports sleep latency sx-He is able to maintain sleep with remeron and asks for help with latency sx. Remeron 15 mg hs-change timing to 1999. Collateral contacts Referrals for ongoing care-Discharge to [facility] on 09/11/20. (4) Cocaine-induced mood disorder with depressive symptoms: Status: Acute Code(s): F14.94 - Cocaine use, unspecified with cocaine-induced mood disorder Greater than 50% of the session was spent on counseling and/or coordination of care Reason for contiued inpatient stay Substantial Risk for: harm to self, inability to function and rapid decompensation
[2020-09-10 16:18] LABS: Free T4 (Free Thyroxine) 0.78 ng/dL (0.71-1.85)
[2020-09-10 16:54] VITALS: BP 116/55; PULSE 89; RESP 18; TEMP 36.3; O2SAT 98
[2020-09-10] MEDS: Mirtazapine 15 MG TABLET PO (20:15)
[2020-09-10] MEDS: traZODone HCL 25 MG HALFTAB PO (20:15)
[2020-09-11 06:00] VITALS: BP 94/51; PULSE 98; RESP 16; TEMP 36.6; O2SAT 98
[2020-09-11] MEDS: Sertraline HCL 50 MG TABLET PO (08:39)
[2020-09-11] MEDS: OLANZapine 5 MG TABLET PO (08:39)
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
== END 2020-09-11 11:00 | disposition other institution (70) | DRG 751 ==
LOC: HO.ED 23:26 → HO.EDOVER 08-30 02:04 → HO.PM5 08-30 02:06
PROVIDERS: Physician Assistant; Admitting Provider Clinical Nurse Specialist Psychiatric/Mental Health; Emergency Provider Internal Medicine; Visit Provider Clinical Nurse Specialist Psychiatric/Mental Health, Adult
DX: F33.2 Major depressive disorder, recurrent severe without psychotic features (principal); R45.851 Suicidal ideations; F14.94 Cocaine use, unspecified with cocaine-induced mood disorder; F43.25 Adjustment disorder with mixed disturbance of emotions and conduct; F43.10 Post-traumatic stress disorder, unspecified; F17.210 Nicotine dependence, cigarettes, uncomplicated; Z71.6 Tobacco abuse counseling; Z20.822 Contact with and (suspected) exposure to COVID-19; Z59.0 Homelessness; Z79.899 Other long term (current) drug therapy
CPT/HCPCS: 36415; 80048; 80053; 80076; 80307; 82248; 84439; 84443; 85025; 87635; 93005; 99285

== ENCOUNTER 2020-10-16 19:39 | Inpatient (IN) | payer MEDICAID, OTHER, SELFPAY ==
[2020-10-16 19:49] VITALS: BP 150/85; PULSE 86; RESP 20; TEMP 36.8; O2SAT 98; BMI 30.7
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
[2020-10-16 21:55] LABS: COVID-19 Test Negative (Negative)
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
--- NOTE | 2020-10-17 07:10 | PC.NURSE ---
patient appears to remain asleep at present, patient appears in no distress, respirations even and unlabored.
[2020-10-17 10:09] LABS: MANUAL DIFF FLAG NO
[2020-10-17 10:11] LABS: Basophils Percent Auto 0.3 % (0-2); Eosinophils Absolute Auto 0.5 X10*3/uL (0.0-0.4); Hematocrit 40.6 % (42-52); Hemoglobin 14.1 g/dl (14.0-18.0); Imm Gran Abs Auto 0.04 X10*3/uL (0.00-0.03); Imm Gran Pct Auto 0.5 % (0.0-0.4); Lymphocytes Absolute Auto 2.1 X10*3/uL (1.2-4.9); Lymphocytes Percent Auto 26.5 % (20-40); Mean Corpuscular HGB Conc 34.7 g/dl (31.0-36.0); Mean Corpuscular Hemoglobin 30.4 pg (27.0-33.0); Mean Corpuscular Volume 87.5 fL (80-98); Mean Platelet Volume 9.6 fL (9.4-12.4); Monocytes Absolute Auto 0.8 X10*3/uL (0.1-1.2); Monocytes Percent Auto 10.4 % (2-11); Neutrophils Absolute Auto 4.4 X10*3/uL (2.0-8.3); Neutrophils Percent Auto 56.3 % (45-73); Platelet Count 305 X10*3/uL (160-400); Red Blood Count 4.64 X10*6/uL (4.60-5.80); Red Cell Distribution Width 13.6 % (11.0-16.0); White Blood Count 7.8 X10*3/uL (4.8-10.8)
[2020-10-17 10:37] LABS: Ethanol < 10 mg/dL
[2020-10-17 10:39] LABS: Lipase 10 U/L (8-78)
[2020-10-17 10:42] LABS: Alanine Aminotransferase 47 U/L (0-40); Albumin Level 3.8 g/dL (3.5-5.0); Alkaline Phosphatase 82 U/L (39-117); Anion Gap 8 (12-20); Aspartate Amino Transferase 34 U/L (5-37); Bilirubin Total 0.7 mg/dL (0.0-1.0); Blood Urea Nitrogen 10 mg/dL (9-16); Carbon Dioxide 25 mmol/L (22-29); Chloride 110 mmol/L (96-108); Creatinine Clr Calc Pharmacy 140.4; Estimated Glomerular Filt Rate > 60; Glucose Random 97 mg/dL (60-115); Magnesium 2.2 mg/dL (1.6-2.6); Potassium 4.3 mmol/L (3.3-5.1); Sodium 139 mmol/L (135-145); Total Protein 6.7 g/dL (6.5-8.0)
--- NOTE | 2020-10-17 12:01 | MHC.CARE ---
1150- Attempted to see patient as Kim was unable to give a concrete time in which they would have a clinician available to see this patient. Met with pt in his room in the Behavioral Health Pod of the ED. Attempts were made to rouse the pt. Pt did not engage with CARE Team, did not open his eyes, mumbled inaudibly in response to the first couple of questions and then did not answer any further questions or engage in any way. CARE Team will attempt to make contact at a later time.
[2020-10-17] MEDS: Sertraline HCL 50 MG TABLET PO (13:04)
[2020-10-17] MEDS: Cyclobenzaprine HCl 10 MG TABLET PO (13:04)
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
--- NOTE | 2020-10-17 17:12 | MHC.CARE ---
Bedsearch was conducted on pt. [facility] and [facility] are currently reviewing, Otherwise pt is exhausted.
[2020-10-17] MEDS: OLANZapine 5 MG TABLET PO (18:03)
[2020-10-17] MEDS: traZODone HCL 50 MG TABLET PO (20:07)
[2020-10-17] MEDS: Mirtazapine 15 MG TABLET PO (20:07)
[2020-10-17] MEDS: hydrOXYzine HCL 25 MG TABLET PO (20:07)
--- NOTE | 2020-10-18 | ECG_ITS ---
Test Reason : MEDICAL CLEARANCE Blood Pressure : / mmHG Vent. Rate : 078 BPM Atrial Rate : 078 BPM P-R Int : 126 ms QRS Dur : 106 ms QT Int : 388 ms P-R-T Axes : 047 -01 046 degrees QTc Int : 442 ms Normal sinus rhythm Incomplete right bundle branch block Nonspecific T wave abnormality Abnormal ECG When compared with ECG of 29-AUG-2020 22:45, Incomplete right bundle branch block is now Present Nonspecific T wave abnormality, worse in Lateral leads Referred By: Beni Stewart Electronically Signed By:LOGAN CHAND
--- NOTE | 2020-10-18 06:06 | PC.NURSE ---
Patient slept through the night, no distress observed/reported, disposition section 12 inpatient bed search, behavior appropriate, med compliant, appetite good, hydrating well, VSS, will continue to monitor.
[2020-10-18 06:39] VITALS: BP 101/58; PULSE 63; RESP 16; TEMP 36.7; O2SAT 98
--- NOTE | 2020-10-18 08:01 | PC.NURSE ---
patient appears to remain at rest at present, patient appears in no distress, respirations are even and unlabored.
[2020-10-18 08:30] LABS: Appearance Urine TURBID; Color Urine YELLOW; Glucose Urine UA NEG (NEG); Leukocyte Esterase Urine NEG (NEG); Nitrite Urine NEG (NEG); PH 6.5 (5.0-8.0); Urine Blood NEG (NEG); Urine Ketones NEG (NEG); Urine Protein NEG (NEG-TRACE)
[2020-10-18] MEDS: OLANZapine 5 MG TABLET PO (09:49)
[2020-10-18] MEDS: Cyclobenzaprine HCl 10 MG TABLET PO ×2 (09:49→18:11)
[2020-10-18] MEDS: Sertraline HCL 50 MG TABLET PO (09:49)
[2020-10-18 16:34] VITALS: BP 134/65; PULSE 79; RESP 17; TEMP 37.1; O2SAT 97
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
[2020-10-18] MEDS: Mirtazapine 15 MG TABLET PO (20:27)
[2020-10-18] MEDS: hydrOXYzine HCL 25 MG TABLET PO (20:27)
[2020-10-18] MEDS: traZODone HCL 50 MG TABLET PO (20:27)
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
--- NOTE | 2020-10-19 01:21 | PC.NURSE ---
Upon chrt review it was noted patient signed a 3 Day notice 10/18/20 that was witnessed and in his chart. Alerted Praful Salazar, admitting [employer] Guadalupe Hodge, and covering manager reimbursement Maddison Arteaga and Ayana Cabrera via email.
[2020-10-19 06:00] VITALS: BP 107/57; PULSE 73; RESP 16; TEMP 36.2; O2SAT 98
[2020-10-19] MEDS: Sertraline HCL 50 MG TABLET PO (08:46)
[2020-10-19] MEDS: OLANZapine 5 MG TABLET PO (08:46)
[2020-10-19 10:07] LABS: Amphetamine Screen Urine Not Detected (Not Detect); Barbiturates, Urine Not Detected (Not Detect); Benzodiazepines Screen Urine Not Detected (Not Detect); Cannabinoid Screen Urine Not Detected (Not Detect); Cocaine Screen Urine POSITIVE (Not Detect); Fentanyl, urine POSITIVE (Not Detect); Opiate Screen Urine Not Detected (Not Detect); Phencyclidine Screen Urine Not Detected (Not Detect)
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
[2020-10-19 16:56] VITALS: BP 108/67; PULSE 92; RESP 16; TEMP 36.7; O2SAT 98
[2020-10-19] MEDS: Cyclobenzaprine HCl 10 MG TABLET PO (17:16)
[2020-10-19] MEDS: Mirtazapine 15 MG TABLET PO (19:54)
[2020-10-19] MEDS: hydrOXYzine HCL 25 MG TABLET PO (19:54)
[2020-10-20] MEDS: OLANZapine 5 MG TABLET PO (09:09)
[2020-10-20] MEDS: Sertraline HCL 50 MG TABLET PO (09:09)
--- NOTE | 2020-10-20 10:49 | HO.PSYCHPN ---
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 Poor eye contact, No Tics or Tremors. No abnormal involuntary movements. Calm, cooperative, speech, spontaneous with regular rate and rhythm, normal volume and prosody.No pressured speech; Mood is ?depressed,? affect is blunted. reports passive SI No HI Denies A/VH or delusional thought content. Thoughts are coherent, organized; Insight/ Judgment limited but adequate. Diagnostics Vital Signs (24Hr): Vital Signs - 24 hr 10/19/20 16:56 Temperature 98.0 F Pulse Rate 92 Respiratory Rate 16 Blood Pressure 108/67 Pulse Oximetry 98 Body Mass Index 30.7 Labs Results: 10/17/20 10:04 10/17/20 10:04 Labs: Laboratory Results - last 48 hr 10/19/20 09:31 Urine Opiates Screen Not Detected Urine Fentanyl Screen POSITIVE H Ur Barbiturates Screen Not Detected Ur Phencyclidine Scrn Not Detected Ur Amphetamines Screen Not Detected U Benzodiazepines Scrn Not Detected Urine Cocaine Screen POSITIVE H U Marijuana (THC) Screen Not Detected Medications Medications Current Medications Generic Name Dose Route Start Last Admin Trade Name Freq PRN Reason Stop Dose Admin Acetaminophen 650 mg 10/18/20 18:31 Acetaminophen 325 Mg Tablet PO Q6H PRN Headache/Pain Mild Scale (1-3) Al Hydroxide/Mg Hydroxide 30 ml 10/18/20 18:31 Magnesium Hydrox/Alum Hydrox 30 Ml Oral.Susp PO Q6H PRN Heartburn/Nausea Cyclobenzaprine HCl 10 mg 10/17/20 12:54 10/19/20 17:16 Cyclobenzaprine Hcl 10 Mg Tablet PO 10 mg Q8H PRN Administration muscle spasm Hydroxyzine HCl 25 mg 10/17/20 21:00 10/19/20 19:54 Hydroxyzine Hcl 25 Mg Tablet PO 25 mg BEDTIME SON Administration Hydroxyzine HCl 10 mg 10/17/20 14:08 Hydroxyzine Hcl 10 Mg Tablet PO Q6H PRN anxiety Magnesium Hydroxide 30 ml 10/18/20 18:31 Milk Of Magnesia 30 Ml Oral.Susp PO DAILY PRN Constipation Mirtazapine 15 mg 10/17/20 21:00 10/19/20 19:54 Mirtazapine 15 Mg Tablet PO 15 mg BEDTIME SON Administration Olanzapine 5 mg 10/17/20 14:15 10/20/20 09:09 Olanzapine 5 Mg Tablet PO 5 mg DAILY SON Administration Sertraline HCl 50 mg 10/17/20 12:45 10/20/20 09:09 Sertraline Hcl 50 Mg Tablet PO 50 mg DAILY SON Administration Trazodone HCl 50 mg 10/17/20 12:39 10/18/20 20:27 Trazodone Hcl 50 Mg Tablet PO 50 mg BEDTIME PRN Administration insomnia Allergies Allergies Allergy/AdvReac Type Severity Reaction Status Date / Time No Known Allergies Allergy Verified 10/16/20 19:49 Assessment & Plan Assessment & Plan (1) Cocaine-induced mood disorder with depressive symptoms: Status: Acute Code(s): F14.94 - Cocaine use, unspecified with cocaine-induced mood disorder (2) Post traumatic stress disorder (PTSD): Status: Acute Code(s): F43.10 - Post-traumatic stress disorder, unspecified (3) Major depressive disorder: Qualifiers: Active/Remission status: currently active Major depression episode severity: severe Major depression recurrence: recurrent Psychotic features: with psychotic features Qualified Code(s): F33.3 - Major depressive disorder, recurrent, severe with psychotic symptoms Status: Acute Code(s): F32.9 - Major depressive disorder, single episode, unspecified Assessment and Plan: Myron is a 40 y.o. Male who carries a dx of polysubstance abuse (alcohol and cocaine), PTSD, and depression. He is currently presenting with sx of depression, SI with vague plan, assaultive ideation, in context of relapse on cocaine, alcohol, heroin and non-adherence with medication or outpatient psych treatment. Labs 10/17/20: CBC wnl except Hct L 40.6. CMP wnl except chloride H 110, Anion Gap L 8, ALT H 47. UA unremarkable. Utox was not completed, I re-ordered this. EKG showed QTc 442.? Continue plan below: 1. Continue med regimen from previous admission (re-started in ED). He takes vistaril 25 mg QHS and 10 mg BID PRN for anxiety, remeron 15 mg QHS and trazodone 25 mg QHS for insomnia, zoloft 50 mg QD for depression/ anxiety/ PTSD, and olanzapine 5 mg QD for agitation/ mood stability. Reviewed risks and benefits. CIWA/ COWS not indicated as pt denies acute withdrawal sx. 2. Monitor response to medications. Monitor for safety in the milieu. Discharge on stabilization. Patient seen. Chart reviewed. Discussed with team. Obtain collateral contact info?as needed Greater than 50% of the session was spent on counseling and/or coordination of care Reason for contiued inpatient stay Substantial Risk for: harm to self, inability to function and rapid decompensation
[2020-10-20 17:25] VITALS: BP 121/65; PULSE 81; TEMP 27.2
[2020-10-20] MEDS: Acetaminophen 325 MG TABLET 650 MG PO (17:43)
[2020-10-20] MEDS: Mirtazapine 15 MG TABLET PO (21:43)
[2020-10-20] MEDS: hydrOXYzine HCL 25 MG TABLET PO (21:43)
[2020-10-20] MEDS: Cyclobenzaprine HCl 10 MG TABLET PO (21:46)
[2020-10-21] MEDS: OLANZapine 5 MG TABLET PO (08:29)
[2020-10-21] MEDS: Sertraline HCL 50 MG TABLET PO (08:29)
[2020-10-21 09:40] VITALS: BP 117/63; PULSE 98; TEMP 36.5; O2SAT 98
[2020-10-21] MEDS: Acetaminophen 325 MG TABLET 650 MG PO (09:42)
--- NOTE | 2020-10-21 12:28 | HO.PSYCHPN ---
Subjective Subjective Date of Service: 10/21/20 Reason For Visit: GEOVANY, SI Subjective Notes: Conditional Voluntary Healthcare Proxy: No Guardianship: No Medical Problems Affecting Mental Status: No Interim History: Pt has signed a TDN effective 10/23/20. Reported depressive sx 100 out of 10. States he is coming down , reports sleep disturbances- most likely a combination of withdrawal, just re-establishing regime, ?some environmental contributions and worries about current stressors. We will leave doses in place at this time. Pt denies other issues of concern. He is considering CSS but will need to retract TDN. Medically, no issues today. Medication Compliance: Yes Side effects from medications: No Attending Groups: No Review of Systems Acute medical concerns: No Medical Review of Systems: unchanged Review of Systems Psychiatric: Reports abnormal sleep pattern, Reports anxiety, Reports depression, Reports difficulty concentrating, Reports hopelessness, Reports irritability, Reports anhedonia and Reports suicidal ideation Mental Status Exam Mental Status Exam Patient Appearance: Fatigued and Disheveled Patient Orientation: Person, Place, Time and Situation Level of Consciousness: Alert Patient Behavior: Talkative, Cooperative, Suspicious, Anxious, Avoidant, Fatigued, Distractible, Isolative and Poor Eye Contact Diagnostics Vital Signs (24Hr): Vital Signs - 24 hr 10/20/20 17:25 10/21/20 09:40 Temperature 81 F L 97.7 F Pulse Rate 81 98 Blood Pressure 121/65 117/63 Pulse Oximetry 98 Body Mass Index 30.7 Labs Results: 10/17/20 10:04 10/17/20 10:04 Medications Medications Current Medications Generic Name Dose Route Start Last Admin Trade Name Martinq PRN Reason Stop Dose Admin Acetaminophen 650 mg 10/18/20 18:31 10/21/20 09:42 Acetaminophen 325 Mg Tablet PO 650 mg Q6H PRN Administration Headache/Pain Mild Scale (1-3) Al Hydroxide/Mg Hydroxide 30 ml 10/18/20 18:31 Magnesium Hydrox/Alum Hydrox 30 Ml Oral.Susp PO Q6H PRN Heartburn/Nausea Cyclobenzaprine HCl 10 mg 10/17/20 12:54 10/20/20 21:46 Cyclobenzaprine Hcl 10 Mg Tablet PO 10 mg Q8H PRN Administration muscle spasm Hydroxyzine HCl 25 mg 10/17/20 21:00 10/20/20 21:43 Hydroxyzine Hcl 25 Mg Tablet PO 25 mg BEDTIME SON Administration Hydroxyzine HCl 10 mg 10/17/20 14:08 Hydroxyzine Hcl 10 Mg Tablet PO Q6H PRN anxiety Magnesium Hydroxide 30 ml 10/18/20 18:31 Milk Of Magnesia 30 Ml Oral.Susp PO DAILY PRN Constipation Mirtazapine 15 mg 10/17/20 21:00 10/20/20 21:43 Mirtazapine 15 Mg Tablet PO 15 mg BEDTIME SON Administration Olanzapine 5 mg 10/17/20 14:15 10/21/20 08:29 Olanzapine 5 Mg Tablet PO 5 mg DAILY SON Administration Sertraline HCl 50 mg 10/17/20 12:45 10/21/20 08:29 Sertraline Hcl 50 Mg Tablet PO 50 mg DAILY SON Administration Trazodone HCl 50 mg 10/17/20 12:39 10/18/20 20:27 Trazodone Hcl 50 Mg Tablet PO 50 mg BEDTIME PRN Administration insomnia Allergies Allergies Allergy/AdvReac Type Severity Reaction Status Date / Time No Known Allergies Allergy Verified 10/16/20 19:49 Assessment & Plan Assessment & Plan (1) Cocaine-induced mood disorder with depressive symptoms: Status: Acute Code(s): F14.94 - Cocaine use, unspecified with cocaine-induced mood disorder (2) Post traumatic stress disorder (PTSD): Status: Acute Code(s): F43.10 - Post-traumatic stress disorder, unspecified (3) Major depressive disorder: Qualifiers: Active/Remission status: currently active Major depression episode severity: severe Major depression recurrence: recurrent Psychotic features: with psychotic features Qualified Code(s): F33.3 - Major depressive disorder, recurrent, severe with psychotic symptoms Status: Acute Code(s): F32.9 - Major depressive disorder, single episode, unspecified Assessment and Plan: Myron is a 40 y.o. Male who carries a dx of polysubstance abuse (alcohol and cocaine), PTSD, and depression. He is currently presenting with sx of depression, SI with vague plan, assaultive ideation, in context of relapse on cocaine, alcohol, heroin and non-adherence with medication or outpatient psych treatment. Labs 10/17/20: CBC wnl except Hct L 40.6. CMP wnl except chloride H 110, Anion Gap L 8, ALT H 47. UA unremarkable. Utox was not completed, I re-ordered this. EKG showed QTc 442.? Continue plan below: 1. Continue med regimen from previous admission (re-started in ED). He takes vistaril 25 mg QHS and 10 mg BID PRN for anxiety, remeron 15 mg QHS and trazodone 25 mg QHS for insomnia, zoloft 50 mg QD for depression/ anxiety/ PTSD, and olanzapine 5 mg QD for agitation/ mood stability. Reviewed risks and benefits. CIWA/ COWS not indicated as pt denies acute withdrawal sx. 2. Monitor response to medications. Monitor for safety in the milieu. Discharge on stabilization. Patient seen. Chart reviewed. Discussed with team. Obtain collateral contact info?as needed Greater than 50% of the session was spent on counseling and/or coordination of care Patient educated on: medication risk/benefits, substance abuse and therapeutic strategies Informed Consent: understands Reason for contiued inpatient stay Substantial Risk for: harm to self, harm to others, inability to function and rapid decompensation
[2020-10-21 18:00] VITALS: BP 112/64; PULSE 88; TEMP 36.8; O2SAT 98
--- NOTE | 2020-10-21 19:47 | PC.NURSE ---
Pt upset about sock missing from dryer. Pt said step back or I'll slap the shit out of you right now . directed to staff in [place]
[2020-10-21] MEDS: hydrOXYzine HCL 25 MG TABLET PO (20:38)
[2020-10-21] MEDS: Mirtazapine 15 MG TABLET PO (20:38)
[2020-10-21] MEDS: Cyclobenzaprine HCl 10 MG TABLET PO (20:42)
[2020-10-22 06:00] VITALS: BP 110/60; PULSE 80; TEMP 37.1; O2SAT 99
[2020-10-22] MEDS: OLANZapine 5 MG TABLET PO (09:04)
[2020-10-22] MEDS: Sertraline HCL 50 MG TABLET PO (09:04)
[2020-10-22] MEDS: hydrOXYzine HCL 10 MG TABLET PO (09:07)
[2020-10-22] MEDS: Acetaminophen 325 MG TABLET 650 MG PO (09:07)
[2020-10-22] MEDS: Milk of Magnesia 30 ML ORAL.SUSP PO (09:08)
[2020-10-22] MEDS: Cyclobenzaprine HCl 10 MG TABLET PO ×2 (09:08→20:27)
[2020-10-22 18:00] VITALS: BP 157/72; PULSE 81; TEMP 37
[2020-10-22] MEDS: hydrOXYzine HCL 25 MG TABLET PO (20:27)
[2020-10-22] MEDS: Mirtazapine 15 MG TABLET PO (20:27)
--- NOTE | 2020-10-22 20:27 | HO.PSYCHPN ---
Subjective Subjective Date of Service: 10/22/20 Reason For Visit: GEOVANY, SI Subjective Notes: Conditional Voluntary Healthcare Proxy: No Guardianship: No Medical Problems Affecting Mental Status: Yes (Cocaine Vasospasms of bilateral toes-mild.) Interim History: Pt reporting his toes have been turning black for ~2 days. Consulted with hospitalist who believes this to be cocaine vasospasms, mild. No Rx required, however if there is pain nifedipine ER 30 can be trialed. Pt to consider. Reports he did not sign a three day notice of intent to leave , this was a miscommunication. He is requesting a CSS, hoping for [facility] admit, as I need the help . I cannot do it out there alone. Struggling with sleep, however, since we have just re-introduced his regime, will wait one more night before increasing dosages which he agrees with I know I will stop it if it is too much . More involved in milieu this admission, more interactive with peers at times and team. Medication Compliance: Yes Side effects from medications: Yes (insomnia) Attending Groups: Intermittent Review of Systems Cocaine Vasospasms Medical Review of Systems: unchanged Review of Systems Reports behavioral changes Psychiatric: Reports abnormal sleep pattern, Reports anxiety, Reports behavioral changes and Reports suicidal ideation (denies-contracts for safety on the unit) Mental Status Exam Mental Status Exam Patient Appearance: Fatigued Patient Orientation: Person, Place, Time and Situation Level of Consciousness: Alert Patient Behavior: Guarded, Talkative, Cooperative, Passive, Suspicious, Anxious, Fearful, Avoidant, Fatigued, Distractible, Isolative and Poor Eye Contact Mood Description: Constricted Affect Description: Constricted Patient Cognition Impaired: No Ability to Follow Directions: Good Speech Pattern: Spontaneous Speech Memory Description: Intact Hallucinations: None Delusions: Not Present Thought Process: Goal Oriented Thought Content: positive for Circumstantial and positive for Goal Oriented Depressive Symptoms: Increased Anxiety, Insomnia, Diff. Making Decisions, Difficulty Sleeping, Increased Fatigue, Low Self Esteem and Difficulty Concentrating Judgement: Fair Diagnostics Vital Signs (24Hr): Vital Signs - 24 hr 10/22/20 06:00 Temperature 98.8 F Pulse Rate 80 Blood Pressure 110/60 Pulse Oximetry 99 Body Mass Index 30.7 Labs Results: 10/17/20 10:04 10/17/20 10:04 Medications Medications Current Medications Generic Name Dose Route Start Last Admin Trade Name Parag PRN Reason Stop Dose Admin Acetaminophen 650 mg 10/18/20 18:31 10/22/20 09:07 Acetaminophen 325 Mg Tablet PO 650 mg Q6H PRN Administration Headache/Pain Mild Scale (1-3) Al Hydroxide/Mg Hydroxide 30 ml 10/18/20 18:31 Magnesium Hydrox/Alum Hydrox 30 Ml Oral.Susp PO Q6H PRN Heartburn/Nausea Cyclobenzaprine HCl 10 mg 10/17/20 12:54 10/22/20 09:08 Cyclobenzaprine Hcl 10 Mg Tablet PO 10 mg Q8H PRN Administration muscle spasm Hydroxyzine HCl 25 mg 10/17/20 21:00 10/21/20 20:38 Hydroxyzine Hcl 25 Mg Tablet PO 25 mg BEDTIME SON Administration Hydroxyzine HCl 10 mg 10/17/20 14:08 10/22/20 09:07 Hydroxyzine Hcl 10 Mg Tablet PO 10 mg Q6H PRN Administration anxiety Magnesium Hydroxide 30 ml 10/18/20 18:31 10/22/20 09:08 Milk Of Magnesia 30 Ml Oral.Susp PO 30 ml DAILY PRN Administration Constipation Mirtazapine 15 mg 10/17/20 21:00 10/21/20 20:38 Mirtazapine 15 Mg Tablet PO 15 mg BEDTIME SON Administration Olanzapine 5 mg 10/17/20 14:15 10/22/20 09:04 Olanzapine 5 Mg Tablet PO 5 mg DAILY SON Administration Sertraline HCl 50 mg 10/17/20 12:45 10/22/20 09:04 Sertraline Hcl 50 Mg Tablet PO 50 mg DAILY SON Administration Trazodone HCl 50 mg 10/17/20 12:39 10/18/20 20:27 Trazodone Hcl 50 Mg Tablet PO 50 mg BEDTIME PRN Administration insomnia Allergies Allergies Allergy/AdvReac Type Severity Reaction Status Date / Time No Known Allergies Allergy Verified 10/16/20 19:49 Assessment & Plan Assessment & Plan (1) Cocaine-induced mood disorder with depressive symptoms: Status: Acute Code(s): F14.94 - Cocaine use, unspecified with cocaine-induced mood disorder (2) Post traumatic stress disorder (PTSD): Status: Acute Code(s): F43.10 - Post-traumatic stress disorder, unspecified (3) Major depressive disorder: Qualifiers: Active/Remission status: currently active Major depression episode severity: severe Major depression recurrence: recurrent Psychotic features: with psychotic features Qualified Code(s): F33.3 - Major depressive disorder, recurrent, severe with psychotic symptoms Status: Acute Code(s): F32.9 - Major depressive disorder, single episode, unspecified Assessment and Plan: Myron is a 40 y.o. Male who carries a dx of polysubstance abuse (alcohol and cocaine), PTSD, and depression. He is currently presenting with sx of depression, SI with vague plan, assaultive ideation, in context of relapse on cocaine, alcohol, heroin and non-adherence with medication or outpatient psych treatment. Labs 10/17/20: CBC wnl except Hct L 40.6. CMP wnl except chloride H 110, Anion Gap L 8, ALT H 47. UA unremarkable. Utox was not completed, I re-ordered this. EKG showed QTc 442.? Continue plan below: 1. Continue med regimen from previous admission (re-started in ED). He takes vistaril 25 mg QHS and 10 mg BID PRN for anxiety, remeron 15 mg QHS and trazodone 25 mg QHS for insomnia, zoloft 50 mg QD for depression/ anxiety/ PTSD, and olanzapine 5 mg QD for agitation/ mood stability. Reviewed risks and benefits. CIWA/ COWS not indicated as pt denies acute withdrawal sx. 2. Monitor response to medications. 3. Monitor insomnia 4. Pt diagnosed with cocaine vasospasms. Offered nifedipine ER trial. He will consider. Greater than 50% of the session was spent on counseling and/or coordination of care Reason for contiued inpatient stay Substantial Risk for: harm to self, inability to function and rapid decompensation
[2020-10-23 06:00] VITALS: PULSE 88; TEMP 36.3
[2020-10-23] MEDS: OLANZapine 5 MG TABLET PO (08:33)
[2020-10-23] MEDS: Sertraline HCL 50 MG TABLET PO (08:33)
[2020-10-23] MEDS: Cyclobenzaprine HCl 10 MG TABLET PO ×2 (08:40→20:06)
[2020-10-23 17:52] VITALS: BP 135/83; PULSE 87; RESP 18; TEMP 36.9; O2SAT 98
--- NOTE | 2020-10-23 17:52 | HO.PSYCHPN ---
Subjective Subjective Date of Service: 10/23/20 Reason For Visit: GEOVANY, SI Subjective Notes: Conditional Voluntary Healthcare Proxy: No Guardianship: No Medical Problems Affecting Mental Status: No Interim History: Pt reporting ongoing poor sleep quality. Discussed titration of Remeron to 30 mg HS. Also reviewed cocaine vasospasms and recommended rx of nifedipine ER. Pt reviewing handouts regarding this intervention. Continues to hope for acceptance to [facility]. Medication Compliance: Yes Side effects from medications: No Attending Groups: No Review of Systems Acute medical concerns: No Medical Review of Systems: unchanged Review of Systems Psychiatric: Reports abnormal sleep pattern, Reports anxiety and Reports depression Mental Status Exam Mental Status Exam Patient Appearance: Fatigued Patient Orientation: Person, Place, Time and Situation Level of Consciousness: Alert Patient Behavior: Guarded, Talkative, Cooperative, Passive, Suspicious, Anxious, Fearful, Avoidant, Fatigued, Distractible, Isolative and Poor Eye Contact Mood Description: Constricted Affect Description: Constricted Patient Cognition Impaired: No Ability to Follow Directions: Good Speech Pattern: Spontaneous Speech Memory Description: Intact Hallucinations: None Delusions: Not Present Thought Process: Goal Oriented Thought Content: positive for Circumstantial and positive for Goal Oriented Depressive Symptoms: Increased Anxiety, Insomnia, Diff. Making Decisions, Difficulty Sleeping, Increased Fatigue, Low Self Esteem and Difficulty Concentrating Judgement: Fair Diagnostics Vital Signs (24Hr): Vital Signs - 24 hr 10/22/20 18:00 10/23/20 06:00 Temperature 98.6 F 97.4 F Pulse Rate 81 88 Blood Pressure 157/72 H Body Mass Index 30.7 Labs Results: 10/17/20 10:04 10/17/20 10:04 Medications Medications Current Medications Generic Name Dose Route Start Last Admin Trade Name Freq PRN Reason Stop Dose Admin Acetaminophen 650 mg 10/18/20 18:31 10/22/20 09:07 Acetaminophen 325 Mg Tablet PO 650 mg Q6H PRN Administration Headache/Pain Mild Scale (1-3) Al Hydroxide/Mg Hydroxide 30 ml 10/18/20 18:31 Magnesium Hydrox/Alum Hydrox 30 Ml Oral.Susp PO Q6H PRN Heartburn/Nausea Cyclobenzaprine HCl 10 mg 10/17/20 12:54 10/23/20 08:40 Cyclobenzaprine Hcl 10 Mg Tablet PO 10 mg Q8H PRN Administration muscle spasm Hydroxyzine HCl 25 mg 10/17/20 21:00 08/24/21 20:27 Hydroxyzine Hcl 25 Mg Tablet PO 25 mg BEDTIME SON Administration Hydroxyzine HCl 10 mg 10/17/20 14:08 10/22/20 09:07 Hydroxyzine Hcl 10 Mg Tablet PO 10 mg Q6H PRN Administration anxiety Magnesium Hydroxide 30 ml 10/18/20 18:31 10/22/20 09:08 Milk Of Magnesia 30 Ml Oral.Susp PO 30 ml DAILY PRN Administration Constipation Mirtazapine 30 mg 10/23/20 21:00 Mirtazapine 15 Mg Tablet PO BEDTIME SON Olanzapine 5 mg 10/17/20 14:15 10/23/20 08:33 Olanzapine 5 Mg Tablet PO 5 mg DAILY SON Administration Sertraline HCl 50 mg 10/17/20 12:45 10/23/20 08:33 Sertraline Hcl 50 Mg Tablet PO 50 mg DAILY SON Administration Trazodone HCl 50 mg 10/17/20 12:39 10/18/20 20:27 Trazodone Hcl 50 Mg Tablet PO 50 mg BEDTIME PRN Administration insomnia Allergies Allergies Allergy/AdvReac Type Severity Reaction Status Date / Time No Known Allergies Allergy Verified 10/16/20 19:49 Assessment & Plan Assessment & Plan (1) Cocaine-induced mood disorder with depressive symptoms: Status: Acute Code(s): F14.94 - Cocaine use, unspecified with cocaine-induced mood disorder (2) Post traumatic stress disorder (PTSD): Status: Acute Code(s): F43.10 - Post-traumatic stress disorder, unspecified (3) Major depressive disorder: Qualifiers: Active/Remission status: currently active Major depression episode severity: severe Major depression recurrence: recurrent Psychotic features: with psychotic features Qualified Code(s): F33.3 - Major depressive disorder, recurrent, severe with psychotic symptoms Status: Acute Code(s): F32.9 - Major depressive disorder, single episode, unspecified Assessment and Plan: Myron is a 40 y.o. Male who carries a dx of polysubstance abuse (alcohol and cocaine), PTSD, and depression. He is currently presenting with sx of depression, SI with vague plan, assaultive ideation, in context of relapse on cocaine, alcohol, heroin and non-adherence with medication or outpatient psych treatment. Labs 10/17/20: CBC wnl except Hct L 40.6. CMP wnl except chloride H 110, Anion Gap L 8, ALT H 47. UA unremarkable. Utox was not completed, I re-ordered this. EKG showed QTc 442.? Continue plan below: 1. Continue med regimen from previous admission (re-started in ED). He takes vistaril 25 mg QHS and 10 mg BID PRN for anxiety, remeron 15 mg QHS and trazodone 25 mg QHS for insomnia, zoloft 50 mg QD for depression/ anxiety/ PTSD, and olanzapine 5 mg QD for agitation/ mood stability. Reviewed risks and benefits. CIWA/ COWS not indicated as pt denies acute withdrawal sx. 2. Monitor response to medications. 3. Monitor insomnia- Increase Remeron to 30 mg HS 4. Pt diagnosed with cocaine vasospasms. Offered nifedipine ER trial. He will consider. Greater than 50% of the session was spent on counseling and/or coordination of care Reason for contiued inpatient stay Substantial Risk for: harm to self, inability to function and rapid decompensation
[2020-10-23] MEDS: Mirtazapine 15 MG TABLET 30 MG PO (20:05)
[2020-10-23] MEDS: hydrOXYzine HCL 25 MG TABLET PO (20:05)
[2020-10-24] MEDS: OLANZapine 5 MG TABLET PO (08:38)
[2020-10-24] MEDS: Sertraline HCL 50 MG TABLET PO (08:38)
[2020-10-24] MEDS: Cyclobenzaprine HCl 10 MG TABLET PO ×2 (08:46→20:38)
[2020-10-24 18:00] VITALS: BP 122/66; PULSE 89; TEMP 37.1
[2020-10-24] MEDS: Mirtazapine 15 MG TABLET 30 MG PO (20:37)
[2020-10-24] MEDS: hydrOXYzine HCL 25 MG TABLET PO (20:38)
[2020-10-24] MEDS: traZODone HCL 50 MG TABLET PO (20:38)
--- NOTE | 2020-10-24 21:24 | HO.PSYCHPN ---
Subjective Subjective Date of Service: 10/24/20 Reason For Visit: GEOVANY, SI Subjective Notes: Conditional Voluntary Healthcare Proxy: No Guardianship: No Medical Problems Affecting Mental Status: No Interim History: Pt plans discharge on 10/25. CSS programs have no availability at this time. Pt is re-established on medications. Declines trial of nifedipine for vasospasms in feet and plans to stay with friends. Team reports he became angry this afternoon in response to being awoken by a fire alarm and punched a window. He reports feeling startled, scared, and felt he needed to respond to protect himself immediately as it was a startling awakening. He hit the window when he re-oriented himself to current circumstance and that he was not in danger. Medication Compliance: Yes Side effects from medications: No Attending Groups: No Review of Systems Acute medical concerns: No Medical Review of Systems: unchanged Review of Systems Reports behavioral changes Psychiatric: Reports behavioral changes, Reports irritability, Reports paranoia and Reports other (appears to have experienced a PTSD type response to the fire alarm) Mental Status Exam Mental Status Exam Patient Appearance: Appropriate Patient Orientation: Person, Place, Time and Situation Level of Consciousness: Alert Patient Behavior: Talkative, Cooperative, Anxious and Good Eye Contact Mood Description: Constricted Affect Description: Constricted Patient Cognition Impaired: No Ability to Follow Directions: Good Speech Pattern: Spontaneous Speech Memory Description: Episodic Impaired Hallucinations: None Delusions: Not Present Thought Process: Goal Oriented Thought Content: positive for Goal Oriented, positive for Suicidal Ideation (denies) and positive for Homicidal Ideation (denies) Depressive Symptoms: Increased Anxiety and Increased Irritability Abnormal Motor Activity Signs and Symptoms: Restlessness Judgement: Good Diagnostics Vital Signs (24Hr): Vital Signs - 24 hr 10/24/20 18:00 Temperature 98.8 F Pulse Rate 89 Blood Pressure 122/66 Body Mass Index 30.7 Labs Results: 10/17/20 10:04 10/17/20 10:04 Medications Medications Current Medications Generic Name Dose Route Start Last Admin Trade Name Freq PRN Reason Stop Dose Admin Acetaminophen 650 mg 10/18/20 18:31 10/22/20 09:07 Acetaminophen 325 Mg Tablet PO 650 mg Q6H PRN Administration Headache/Pain Mild Scale (1-3) Al Hydroxide/Mg Hydroxide 30 ml 10/18/20 18:31 Magnesium Hydrox/Alum Hydrox 30 Ml Oral.Susp PO Q6H PRN Heartburn/Nausea Cyclobenzaprine HCl 10 mg 10/17/20 12:54 10/24/20 20:38 Cyclobenzaprine Hcl 10 Mg Tablet PO 10 mg Q8H PRN Administration muscle spasm Hydroxyzine HCl 25 mg 10/17/20 21:00 10/24/20 20:38 Hydroxyzine Hcl 25 Mg Tablet PO 25 mg BEDTIME SON Administration Hydroxyzine HCl 10 mg 10/17/20 14:08 10/22/20 09:07 Hydroxyzine Hcl 10 Mg Tablet PO 10 mg Q6H PRN Administration anxiety Magnesium Hydroxide 30 ml 10/18/20 18:31 10/22/20 09:08 Milk Of Magnesia 30 Ml Oral.Susp PO 30 ml DAILY PRN Administration Constipation Mirtazapine 30 mg 10/23/20 21:00 10/24/20 20:37 Mirtazapine 15 Mg Tablet PO 30 mg BEDTIME SON Administration Olanzapine 5 mg 10/17/20 14:15 10/24/20 08:38 Olanzapine 5 Mg Tablet PO 5 mg DAILY SON Administration Sertraline HCl 50 mg 10/17/20 12:45 10/24/20 08:38 Sertraline Hcl 50 Mg Tablet PO 50 mg DAILY SON Administration Trazodone HCl 50 mg 10/17/20 12:39 10/24/20 20:38 Trazodone Hcl 50 Mg Tablet PO 50 mg BEDTIME PRN Administration insomnia Allergies Allergies Allergy/AdvReac Type Severity Reaction Status Date / Time No Known Allergies Allergy Verified 10/16/20 19:49 Assessment & Plan Assessment & Plan (1) Cocaine-induced mood disorder with depressive symptoms: Status: Acute Code(s): F14.94 - Cocaine use, unspecified with cocaine-induced mood disorder (2) Post traumatic stress disorder (PTSD): Status: Acute Code(s): F43.10 - Post-traumatic stress disorder, unspecified (3) Major depressive disorder: Qualifiers: Active/Remission status: currently active Major depression episode severity: severe Major depression recurrence: recurrent Psychotic features: with psychotic features Qualified Code(s): F33.3 - Major depressive disorder, recurrent, severe with psychotic symptoms Status: Acute Code(s): F32.9 - Major depressive disorder, single episode, unspecified Assessment and Plan: Myron is a 40 y.o. Male who carries a dx of polysubstance abuse (alcohol and cocaine), PTSD, and depression. He is currently presenting with sx of depression, SI with vague plan, assaultive ideation, in context of relapse on cocaine, alcohol, heroin and non-adherence with medication or outpatient psych treatment. Labs 10/17/20: CBC wnl except Hct L 40.6. CMP wnl except chloride H 110, Anion Gap L 8, ALT H 47. UA unremarkable. Utox was not completed, I re-ordered this. EKG showed QTc 442.? Continue plan below: 1. Continue med regimen from previous admission (re-started in ED). He takes vistaril 25 mg QHS and 10 mg BID PRN for anxiety, remeron 15 mg QHS and trazodone 25 mg QHS for insomnia, zoloft 50 mg QD for depression/ anxiety/ PTSD, and olanzapine 5 mg QD for agitation/ mood stability. Reviewed risks and benefits. CIWA/ COWS not indicated as pt denies acute withdrawal sx. 2. Monitor response to medications. 3. Monitor insomnia- Continue Remeron 30 mg HS- pt reports some improvement in quality of sleep. 4. Pt diagnosed with cocaine vasospasms. Offered nifedipine ER trial. He declines at this time. 5. Discharge 10/25. No [facility] beds are available at this time. Greater than 50% of the session was spent on counseling and/or coordination of care Patient educated on: therapeutic strategies Informed Consent: understands Reason for contiued inpatient stay Substantial Risk for: stable for discharge
[2020-10-25] MEDS: Sertraline HCL 50 MG TABLET PO (09:34)
[2020-10-25] MEDS: Cyclobenzaprine HCl 10 MG TABLET PO (09:34)
[2020-10-25] MEDS: OLANZapine 5 MG TABLET PO (09:34)
--- NOTE | 2020-10-25 17:59 | P.DS_ITS ---
DS: Providers Provider Date of Service: 10/25/20 Date of admission: 10/18/20 18:18 Date of discharge: 10/25/20 Primary care physician: [facility] Admitting clinician: Guadalupe Hodge Attending physician on admission: Sarabjit Morelos Attending physician on discharge: Sarabjit Morelos Discharging clinician: Cynthia Cancino DS: Diagnosis Discharge Diagnosis (1) Major depressive disorder: Status: Acute (2) Post traumatic stress disorder (PTSD): Status: Acute (3) Cocaine-induced mood disorder with depressive symptoms: Status: Acute DS: Medications Discharge Medications Home Medications: Previous Rx's Medication Instructions Recorded cyclobenzaprine 10 mg tablet 1 tab PO BID PRN #30 tab 10/25/20 mirtazapine 15 mg tablet 30 mg PO BEDTIME #30 tab 10/25/20 olanzapine 5 mg tablet 5 mg PO DAILY #30 tab 10/25/20 sertraline 50 mg tablet 1 tab PO DAILY #30 tab 10/25/20 trazodone 50 mg tablet 1 tab PO BEDTIME PRN #30 tab 10/25/20 Mental Status Exam Mental Status Exam Patient Appearance: Appropriate Patient Orientation: Person, Place, Time and Situation Level of Consciousness: Alert Patient Behavior: Talkative, Cooperative and Good Eye Contact Mood Description: Constricted Affect Description: Constricted Patient Cognition Impaired: No Ability to Follow Directions: Good Speech Pattern: Spontaneous Speech Memory Description: Episodic Impaired Hallucinations: None Delusions: Not Present Thought Process: Goal Oriented Thought Content: positive for Goal Oriented, positive for Suicidal Ideation (denies) and positive for Homicidal Ideation (denies) Judgement: Good Data Data Completed and Pending Completed studies during hospitalization [Text1]: 10/19/20 09:31 Urine Opiates Screen Not Detected Urine Fentanyl Screen POSITIVE H Ur Barbiturates Screen Not Detected Ur Phencyclidine Scrn Not Detected Ur Amphetamines Screen Not Detected U Benzodiazepines Scrn Not Detected Urine Cocaine Screen POSITIVE H U Marijuana (THC) Screen Not Detected DS: Summary Hospital Course Hospital Course: Pt was admitted on a conditional voluntary. He was cooperative on the unit and isolative to his room most of the time, citing that in patient settings make him feel anxious. He did report poor sleep quantity and quality. Remeron was titrated to 30 mg at bedtime which he reported was effective and Olanzapine to 5 mg at bedtime. Sertraline 50 mg was ongoing as well as Trazodone 50 mg PRN at bedtime. Pt expressed interest in transfer to [facility], however, during this time no beds were available. He discharged to home with information so he could continue to make calls. Upon discharge he declined further appointments for out patient services, stating that he would continue calling [facility] programs until admitted as he felt this was what he needed at this time. He denied SI plan or intent, had no symptoms of psychotic thought process and his mood was constricted. Time spent discussing smoking cessation with patient: 3 to 10 minutes Status at Discharge Cognitive/behavioral status at discharge: alert, oriented, non psychotic, denies SI plan or intent, mood and affect constricted. Functional status at discharge: independent ambulation Overall status at discharge: patient is back to baseline Time Spent with Patient Time attestation: Total time spent providing and/or coordinating discharge services: 30 Time spent: Less than 30 minutes Discharge Plan Discharge Patient Disposition: Home, Self-Care Discharge Diagnosis: Recurrent Major Depression PTSD Cocaine Use Disorder, Severe Referrals: [facility] [Other] - 10/28/20 9:00 am ([facility] Referral Patient needs to follow-up after discharge to inquire as to ability to obtain placement ) [facility] [Other] - 10/28/20 9:00 am ([facility] Referral Patient needs to follow-up after discharge to determine if placement in program available.) [facility] [Other] - 10/28/20 9:00 am ([facility] Referral Patient on Wait List for acceptance into program and needs to follow up daily to determine when placement may be available. Patient needs to maintain sobriety from substance use per traveling sales representative for acceptance into program when called.) Blair Aguilar MD [Physician] - 11/14/20 10:15 am (IN OFFICE) Discharge Medications: New olanzapine 5 mg Tablet 5 mg PO DAILY Qty: 30 RF: 0 mirtazapine 15 mg Tablet 30 mg PO BEDTIME Qty: 30 RF: 0 Continued cyclobenzaprine 10 mg tablet 1 tab PO BID PRN (Reason: cramps) Qty: 30 RF: 0 trazodone 50 mg tablet 1 tab PO BEDTIME PRN (Reason: insomnia) Qty: 30 RF: 0 sertraline 50 mg tablet 1 tab PO DAILY Qty: 30 RF: 0 Discharge Orders: Discharge Order (Routine); Ordered 10/25/20 Ordered By: Cynthia Cancino Diet: advance to usual diet Activity on Discharge: As tolerated Stand Alone Forms: Patient Portal Discharge page Care Plan Goals: Mood Stabilization Sobriety Health Concerns: Depression Cocaine Use Plan of Treatment: Take medications as directed You have refused follow up appointments. Assessment: Myron has declined further care and treatment at this time. He will take medications as directed He denies SI, HI, has no symptoms of psychosis. Currently [facility] beds are not available at this time to offer pt. Discharge Date/Time: 10/25/20 11:45
== END 2020-10-25 11:45 | disposition home or self-care (01) | DRG 751 ==
LOC: HO.ED 10-17 01:48 → HO.PM5 10-18 18:29
PROVIDERS: Physician Assistant Medical; Admitting Provider Registered Nurse; Emergency Provider Emergency Medicine Emergency Medical Services; Visit Provider Clinical Nurse Specialist Psychiatric/Mental Health, Adult
DX: F33.3 Major depressive disorder, recurrent, severe with psychotic symptoms (principal); R45.851 Suicidal ideations; R45.850 Homicidal ideations; F17.210 Nicotine dependence, cigarettes, uncomplicated; F43.10 Post-traumatic stress disorder, unspecified; F41.9 Anxiety disorder, unspecified; F14.24 Cocaine dependence with cocaine-induced mood disorder; Z20.822 Contact with and (suspected) exposure to COVID-19; Z71.6 Tobacco abuse counseling; Z79.899 Other long term (current) drug therapy
CPT/HCPCS: 36415; 80053; 80307; 81003; 82077; 83690; 83735; 85025; 87635; 93005; 99284; 99285

== ENCOUNTER 2021-07-08 13:06 | Emergency (ER) | payer MEDICAID, SELFPAY ==
--- NOTE | ~2021-07-08 | XR_ITS ---
EXAMINATION: XR chest 2V CLINICAL INFORMATION: Reason for Exam general weakness COMPARISON: Prior chest x-ray April 2019 TECHNIQUE: XR chest 2V Lungs and Meli: Both lungs are clear. Pleura: Normal. Costophrenic angles are sharp. No pneumothorax. Heart: The heart is normal in size. Mediastinum: The mediastinum is within normal limits.. Bones: Skeletal structures included are normal for patient's age. XR/XR chest 2V IMPRESSION: No radiographic evidence of acute cardiopulmonary disease.
--- NOTE | ~2021-07-08 | XR_ITS ---
EXAMINATION: XR KNEE, RIGHT CLINICAL INFORMATION: Pain COMPARISON: None TECHNIQUE: Four views of the right knee. FINDINGS: Bones and soft tissues are normal. No fracture or joint effusion. Alignment is anatomic. Joint spaces are well maintained. No abnormal soft tissue calcification. XR/XR knee RT 4V IMPRESSION: No fracture. No significant osseous changes to explain patient's pain symptoms, if patient remain symptomatic consider correlation with MRI to assess for possible underlying soft tissue derangement.
[2021-07-08 13:21] VITALS: BP 147/67; PULSE 102; O2SAT 97
[2021-07-08 13:29] VITALS: BP 147/67; PULSE 102; RESP 18; TEMP 36.6; O2SAT 98; BMI 25.0
[2021-07-08] MEDS: Sulfamethox/Trimeth 800/160 TABLET 1 TAB PO (14:39)
[2021-07-08] MEDS: Lidocaine HCl 2 % MPF 5 ML VIAL SUBCUT (14:39)
[2021-07-08] MEDS: Ibuprofen 800 MG TABLET PO (14:39)
[2021-07-08] MEDS: cephALEXin 500 MG CAPSULE PO (14:39)
--- NOTE | 2021-07-08 14:54 | ED_ITS ---
HPI - Extremity Problem General Chief complaint: General Medical Stated complaint: WEAK,DIZZY,R KNEE GAVE OUT/PAIN/SWELLING Time Seen by Provider: 07/08/21 13:55 Related Data Previous Rx's Medication Instructions Recorded cyclobenzaprine 10 mg tablet 1 tab PO BID PRN #30 tab 10/25/20 mirtazapine 15 mg tablet 30 mg PO BEDTIME #30 tab 10/25/20 olanzapine 5 mg tablet 5 mg PO DAILY #30 tab 10/25/20 sertraline 50 mg tablet 1 tab PO DAILY #30 tab 10/25/20 trazodone 50 mg tablet 1 tab PO BEDTIME PRN #30 tab 10/25/20 cephalexin 500 mg capsule 500 mg PO Q6H 10 Days #40 cap 07/08/21 sulfamethoxazole 800 1 tab PO BID 10 Days #20 tab 07/08/21 mg-trimethoprim 160 mg tablet (Bactrim DS) Allergies Allergy/AdvReac Type Severity Reaction Status Date / Time No Known Allergies Allergy Verified 10/16/20 19:49 COUNT INCLUDES THE [facility] Past Medical History Medical History Anxiety Cellulitis of finger Healthy adult Major depressive disorder Social History Social History Household Members: None Housing: Homeless Do you presently have visiting nurse or other home services: No Alcohol intake: unknown Patient Tobacco Use Status: Current someday Tobacco user Tobacco use type: Cigarette Cigarette Packs Per Day: 1 Cigarettes Per Day: 20.0 Years Smoked: 15 e-Cigarette/Vaping Use: Currently Using Second Hand Smoke Exposure: No Substance Use Type: Crack/Cocaine Advance Directives: No Advance Directives Information Provided: No service: No Sexual orientation: Don't Know Physical Exam Vital Signs: Vital Signs: Last Vital Signs Temp 97.8 F 07/08/21 13:29 Pulse 102 H 07/08/21 13:29 Resp 18 07/08/21 13:29 BP 147/67 H 07/08/21 13:29 Pulse Ox 98 07/08/21 13:29 BMI result Body Mass Index 25.0 Discharge Plan Discharge Clinical Impression: Strain of right knee, Abscess of right thigh, Cellulitis of right thigh Patient Disposition: Home, Self-Care Instructions: Knee Sprain (ED), Cellulitis (ED), Abscess Incision and Drainage (DC) Prescriptions: New sulfamethoxazole-trimethoprim [Bactrim DS] 800-160 mg tablet 1 tab PO BID 10 Days Qty: 20 0RF cephalexin 500 mg capsule 500 mg PO Q6H 10 Days Qty: 40 0RF No Action olanzapine 5 mg Tablet 5 mg PO DAILY Qty: 30 0RF mirtazapine 15 mg Tablet 30 mg PO BEDTIME Qty: 30 0RF cyclobenzaprine 10 mg tablet 1 tab PO BID PRN (Reason: cramps) Qty: 30 0RF trazodone 50 mg tablet 1 tab PO BEDTIME PRN (Reason: insomnia) Qty: 30 0RF sertraline 50 mg tablet 1 tab PO DAILY Qty: 30 0RF Referrals: Physician,Unknown J [Primary Care Provider] - 2 days (your pcp)
--- NOTE | 2021-07-08 15:15 | MHC.RECOVRN ---
Met with pt in [facility] to discuss substance use. Pt laying in bed, awake, alert, easily engaged in conversation. Regarding substances, pt states I'll do anything if you put it in front of me but the only thing I LIKE is cocaine. Pt reports using cocaine, IN, 0.5-3 grams daily. Last use 3 days ago. Pt has been to treatment facilities in the past and is working with a [facility] outpatient to secure a bed. Pt mentioned ATS, t/w informed pt only available beds currently are at [facility]. Pt declines exploring that option due to desire to stay local. Pt is not currently experiencing any withdrawal symptoms and would most likely not be a candidate for ATS due to length of time since last use. Pt agreeable to continue working with [employer] [facility] [employer] [facility] after discharge. Discussed with provider. T/w available if needed for further GEOVANY discussion.
--- NOTE | 2021-07-08 15:15 | ED.LOWEXIN ---
HPI - Extremity Injury (Lower) General Chief Complaint: General Medical Stated Complaint: WEAK,DIZZY,R KNEE GAVE OUT/PAIN/SWELLING Time Seen by Provider: 07/08/21 13:55 Source: patient Mode of arrival: ambulatory Limitations: no limitations History of Present Illness HPI Narrative: 40-year-old male with a past medical history of substance abuse, depressive disorder, PTSD, adjustment mood disorder and mixed disturbance of emotions and conduct disorder presenting to the ED via EMS with complaints of right knee pain after he was walking for a long amount of time and he felt like his right knee went out word and he almost fell although did not fall this happened prior to arrival. He also reports when he was in the ambulance coming to the emergency department he noticed that he had some redness to his right thigh and he is unsure if he got bit by a bug. He also reports that he is interested in detox. He denies any SI /HI / auditory visualizations thoughts of self-injury and denies recent drug usage. 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) Injury: Right: knee Type of Injury: eversion Place: street/outdoors Severity: moderate Relieving factors: nothing Exacerbating factors: weight bearing, movement and palpation Context: walking Associated symptoms: ambulatory Related Data Previous Rx's Medication Instructions Recorded cyclobenzaprine 10 mg tablet 1 tab PO BID PRN #30 tab 10/25/20 mirtazapine 15 mg tablet 30 mg PO BEDTIME #30 tab 10/25/20 olanzapine 5 mg tablet 5 mg PO DAILY #30 tab 10/25/20 sertraline 50 mg tablet 1 tab PO DAILY #30 tab 10/25/20 trazodone 50 mg tablet 1 tab PO BEDTIME PRN #30 tab 10/25/20 cephalexin 500 mg capsule 500 mg PO Q6H 10 Days #40 cap 07/08/21 sulfamethoxazole 800 1 tab PO BID 10 Days #20 tab 07/08/21 mg-trimethoprim 160 mg tablet (Bactrim DS) Allergies Allergy/AdvReac Type Severity Reaction Status Date / Time No Known Allergies Allergy Verified 10/16/20 19:49 Review of Systems Review of Systems: Constitutional : No Weight loss, No Fever, No Chills, No Night Sweats, No Fatigue, No Malaise ENT/Mouth : No Hearing loss, No Ear Pain, No Nasal Congestion, No Sinus Pain, No Hoarseness, No sore throat, No Rhinorrhea, No Swallowing Difficulty Eyes: No Eye Pain, No Swelling, No Redness, No Foreign Body, No Discharge, No Vision Changes Cardiovascular : No Chest Pain, No SOB, No Dyspnea on Exertion, No Orthopnea, No Edema, No Palpitations Respiratory : No Cough, No Sputum, No Wheezing, No Smoke Exposure, No Dyspnea Gastrointestinal : No Nausea, No Vomiting, No Diarrhea, No Constipation, No abdominal Pain, No Hematochezia, No Melena Genitourinary : no irregular bleeding, No Dysuria, No Urinary Frequency, No Hematuria, No Urinary Incontinence, No Urgency, No Flank Pain, No Urinary Flow Changes, No Hesitancy Musculoskeletal : + Right knee joint pain, No Myalgias, No Joint Swelling Skin : + abscess to right posterior thigh c surrounding erythema, No Skin Lesions, No rash Neuro : No Weakness, No Numbness, No Paresthesias, No Loss of Consciousness, No Dizziness, No Headache Psych : No Anxiety/Panic, No Depression, No SI/HI/AH/VH, No Social Issues, Heme/Lymph: No Bruising, No Bleeding,No Lymphadenopathy Endocrine : No Polyuria, No Polydipsia, No Temperature Intolerance No Hx of MRSA Yes all other systems are reviewed and are negative [facility] Past Medical History Attestation statement: The following information was validated with the patient. Medical History Anxiety Cellulitis of finger Healthy adult Major depressive disorder Social History Social History Household Members: None Housing: Homeless Do you presently have visiting nurse or other home services: No Alcohol intake: unknown Patient Tobacco Use Status: Current someday Tobacco user Tobacco use type: Cigarette Cigarette Packs Per Day: 1 Cigarettes Per Day: 20.0 Years Smoked: 15 e-Cigarette/Vaping Use: Currently Using Second Hand Smoke Exposure: No Substance Use Type: Crack/Cocaine Advance Directives: No Advance Directives Information Provided: No service: No Sexual orientation: Don't Know Physical Exam Vital Signs: Vital Signs: Last Vital Signs Temp 97.8 F 07/08/21 13:29 Pulse 102 H 07/08/21 13:29 Resp 18 07/08/21 13:29 BP 147/67 H 07/08/21 13:29 Pulse Ox 98 07/08/21 13:29 BMI result Body Mass Index 25.0 vital signs have been reviewed as normal and appeared to be correct. Blood pressure 147/67. Heart rate 102. Respiration rate normal. Temperature normal. Oxygen saturation normal. Appearance: Alert. Oriented X3. No acute distress. Head: Normal external exam. Normocephalic. Atraumatic. Eyes: PERRLA. EOMI. Conjunctiva and sclera normal. Eyelids normal. ENT: Pharynx normal. Uvula midline. Moist mucous membranes. No lesions/ulcerations or masses noted on the tongue. Normal voice. No trismus noted. No drooling noted. No muffled voice noted. Neck: Normal inspection. Neck supple. FROM. No adenopathy. Thyroid Normal. No meningeal signs. No neck mass noted. CVS: Normal heart rate and rhythm. Heart sound normal. Pulses normal throughout. No murmurs/rales/gallops. Respiratory: No respiratory distress. Painless inspiration. Breath sounds normal. No wheezes/rales/rhonchi noted. Chest nontender. No crepitus is noted. No accessory muscle usage noted or decreased air movement noted. Abdomen: Soft and nontender. Bowel sounds normal in all 4 quadrants. No distention noted. No organomegaly noted. No visible injury noted. Back: No CVA tenderness. Full range of motion noted. Nontender. No signs of trauma. Patient neuro intact bilaterally and distally on all 4 extremities. Patient's reflexes intact bilaterally and distally on all 4 extremities. No rashes/lesion/induration/fluctuance or signs of infection noted. Skin: Skin warm and dry. Normal skin color. Normal skin turgor. Patient with abscess to right posterior thigh with mild surrounding erythema/ warm to touch and tender to palpation. no streaking noted. No additional rashes/lesions/lacerations noted. Extremities: Patient mild tenderness palpation to the medial aspect of his knee. No obvious ligamentous or tendon injury noted. Not consistent with septic joint. No erythema noted. No fluctuance noted. No rashes are noted. He has full range of motion of the right knee. Otherwise there is no lower extremity edema or calf tenderness noted. And all other extremities nontender with full range of motion. Neuro: Oriented X 3. No motor deficit. No sensory deficit. Reflexes normal. Normal steady gait. No focal neuro deficits noted. CN's II-XII intact bilaterally? Vascular: + radial pulses/+ 2 distal pedal pulses/+2 dorsalis pedis b/l. Normal cap refill. No cyanosis noted to upper extremity nails and lower extremity toes nails. Course Course Course Narrative: IMP/Plan: abscess. No systemic toxicity, and pt looks well. + surrounding cellulitis. Not c/w nec fasc/ myositis/ DVT/ osteomyelitis. patient now status post I&D of abscess and patient tolerated procedure well. No complications. No labs. x-ray of right knee within normal limits. Patient was seen by the care team and he refused a detox program due to it was too far. He is not showing any signs of withdrawal. Therefore at this time Will DC home antibiotics and symptomatic treatment instructions return if any new or worsening symptoms to follow up with primary care provider. Patient understands agrees this plan. MDM - Extremity Injury (Lower) Medical Records Attestation: I reviewed the patient's medical records. Lab Data Attestation: I reviewed the patient's lab results. Imaging Data chest x-ray right knee x-ray: Attestation: I personally reviewed and interpreted this imaging study as follows: Radiologist's impression: Lungs and Meli: Both lungs are clear. Pleura: Normal. Costophrenic angles are sharp. No pneumothorax. Heart: The heart is normal in size. Mediastinum: The mediastinum is within normal limits.. Bones: Skeletal structures included are normal for patient's age. XR/XR chest 2V IMPRESSION: No radiographic evidence of acute cardiopulmonary disease. FINDINGS: Bones and soft tissues are normal. No fracture or joint effusion. Alignment is anatomic. Joint spaces are well maintained. No abnormal soft tissue calcification.? XR/XR knee RT 4V IMPRESSION: No fracture. ? No significant osseous changes to explain patient's pain symptoms, if patient remain symptomatic consider correlation with MRI to assess for possible underlying soft tissue derangement. Procedures Abscess I/D Site: lower extremity (thigh) Side (if applicable): right Local Anesthetic: lidocaine 2% Amount of anesthesia used (mL): 3 Technique: incised with blade Amount of fluid expressed (mL): 10 Sent for culture/gram staining?: No Irrigation: Yes Packing used?: none Complications: other ( no complications patient tolerated procedure well) Discharge Plan Discharge Clinical Impression: Strain of right knee, Abscess of right thigh, Cellulitis of right thigh Patient Disposition: Home, Self-Care Instructions: Knee Sprain (ED), Cellulitis (ED), Abscess Incision and Drainage (DC) Prescriptions: New sulfamethoxazole-trimethoprim [Bactrim DS] 800-160 mg tablet 1 tab PO BID 10 Days Qty: 20 0RF cephalexin 500 mg capsule 500 mg PO Q6H 10 Days Qty: 40 0RF No Action olanzapine 5 mg Tablet 5 mg PO DAILY Qty: 30 0RF mirtazapine 15 mg Tablet 30 mg PO BEDTIME Qty: 30 0RF cyclobenzaprine 10 mg tablet 1 tab PO BID PRN (Reason: cramps) Qty: 30 0RF trazodone 50 mg tablet 1 tab PO BEDTIME PRN (Reason: insomnia) Qty: 30 0RF sertraline 50 mg tablet 1 tab PO DAILY Qty: 30 0RF Referrals: Physician,Unknown J [Primary Care Provider] - 2 days (your pcp)
[2021-07-08 15:52] LABS: Amphetamine Screen Urine Not Detected (Not Detect); Barbiturates, Urine Not Detected (Not Detect); Benzodiazepines Screen Urine Not Detected (Not Detect); Cannabinoid Screen Urine Not Detected (Not Detect); Cocaine Screen Urine POSITIVE (Not Detect); Fentanyl, urine Not Detected (Not Detect); Opiate Screen Urine Not Detected (Not Detect); Phencyclidine Screen Urine Not Detected (Not Detect)
== END 2021-07-08 15:32 | disposition home or self-care (01) ==
PROVIDERS: Physician Assistant Medical; Emergency Provider Emergency Medicine
DX: L02.415 Cutaneous abscess of right lower limb (principal); L03.115 Cellulitis of right lower limb; M25.561 Pain in right knee; R42 Dizziness and giddiness; F17.210 Nicotine dependence, cigarettes, uncomplicated; Z71.6 Tobacco abuse counseling; Z79.899 Other long term (current) drug therapy
CPT/HCPCS: 10060; 71046; 73564; 80307; 99284

== ENCOUNTER 2021-07-23 21:10 | Emergency (ER) | payer MEDICAID, SELFPAY ==
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
[2021-07-23 22:06] VITALS: PULSE 93; RESP 18; TEMP 36.6; O2SAT 99; BMI 26.0
== END 2021-07-24 00:23 | disposition left against medical advice (07) ==
LOC: HO.ED 07-24 00:15
PROVIDERS: Emergency Provider Emergency Medicine
DX: S49.91XA Unspecified injury of right shoulder and upper arm, initial encounter (principal); S29.9XXA Unspecified injury of thorax, initial encounter; M25.511 Pain in right shoulder; R07.81 Pleurodynia; M25.561 Pain in right knee; V03.90XA Pedestrian on foot injured in collision with car, pick-up truck or van, unspecified whether traffic or nontraffic accident, initial encounter; Y93.9 Activity, unspecified; Y92.410 Unspecified street and highway as the place of occurrence of the external cause; Y99.9 Unspecified external cause status
CPT/HCPCS: 71101; 73030; 73560; 99283

== ENCOUNTER 2021-07-28 12:36 | Emergency (ER) | payer MEDICAID, SELFPAY ==
--- NOTE | ~2021-07-28 | CT_ITS ---
EXAMINATION: CT HEAD WITHOUT CONTRAST CT FACE WITHOUT CONTRAST CT CERVICAL SPINE WITHOUT CONTRAST CLINICAL INFORMATION: Pain status post cells. COMPARISON: CT scan of the head 07/21/2018. TECHNIQUE: Material Handling Technician images were obtained. CT imaging of the head, face, and cervical spine was performed without contrast. Data was reformatted into multiplanar images at the acquisition workstation. This CT examination was performed using dose optimization techniques as appropriate, including one or more of the following: Automated exposure control, iterative reconstruction, and adjustment of technique factors (mA and/or kVp) according to patient size (this includes techniques or standardized protocols for targeted exams where dose is matched to indication/reason for exam). DLP: 1417.76 mGy-cm. FINDINGS: Head: There is swelling of the left parietal scalp. No associated calvarial fracture. There is no acute intracranial hemorrhage or abnormal extra-axial collection. No intracranial mass effect or midline shift. Lateral and third ventricles are normal. No hydrocephalus. Carter-white matter differentiation is preserved and there is no evidence of acute territorial infarct. Face: There is an acute comminuted fracture that involves the left zygomatic arch. The fracture extends through the base of the zygomatic process of the temporal bone and it extends into the left temporomandibular joint and through a few air cells within a hyperpneumatized mastoid which provides an explanation for the adjacent soft tissue gas. Partial opacification of the left mastoid air cells. Cervical spine: There is nonspecific reversal of cervical lordosis. Alignment is otherwise normal. Vertebral heights are preserved. No acute fracture. No abnormal prevertebral soft tissue swelling. Grossly no evidence of canal compromise. Uncovertebral joint spurring and conjunction with facet degenerative change causes moderate neuroforaminal encroachment at C6-C7. There is soft tissue gas within the left slitter helper space and left parapharyngeal space. Visualized lung apices are clear. CT/CT head/brain wo con IMPRESSION: There is an acute fracture of the left zygomatic arch that extends into the left temporomandibular joint. Otherwise unremarkable examination in that there is no acute intracranial hemorrhage. No acute cervical spine fracture.
--- NOTE | ~2021-07-28 | CT_ITS ---
EXAMINATION: CT HEAD WITHOUT CONTRAST CT FACE WITHOUT CONTRAST CT CERVICAL SPINE WITHOUT CONTRAST CLINICAL INFORMATION: Pain status post cells. COMPARISON: CT scan of the head 07/21/2018. TECHNIQUE: [facility] Ancillary images were obtained. CT imaging of the head, face, and cervical spine was performed without contrast. Data was reformatted into multiplanar images at the acquisition workstation. This CT examination was performed using dose optimization techniques as appropriate, including one or more of the following: Automated exposure control, iterative reconstruction, and adjustment of technique factors (mA and/or kVp) according to patient size (this includes techniques or standardized protocols for targeted exams where dose is matched to indication/reason for exam). DLP: 1417.76 mGy-cm. FINDINGS: Head: There is swelling of the left parietal scalp. No associated calvarial fracture. There is no acute intracranial hemorrhage or abnormal extra-axial collection. No intracranial mass effect or midline shift. Lateral and third ventricles are normal. No hydrocephalus. Carter-white matter differentiation is preserved and there is no evidence of acute territorial infarct. Face: There is an acute comminuted fracture that involves the left zygomatic arch. The fracture extends through the base of the zygomatic process of the temporal bone and it extends into the left temporomandibular joint and through a few air cells within a hyperpneumatized mastoid which provides an explanation for the adjacent soft tissue gas. Partial opacification of the left mastoid air cells. Cervical spine: There is nonspecific reversal of cervical lordosis. Alignment is otherwise normal. Vertebral heights are preserved. No acute fracture. No abnormal prevertebral soft tissue swelling. Grossly no evidence of canal compromise. Uncovertebral joint spurring and conjunction with facet degenerative change causes moderate neuroforaminal encroachment at C6-C7. There is soft tissue gas within the left grant manager space and left parapharyngeal space. Visualized lung apices are clear. CT/CT cervical spine wo con IMPRESSION: There is an acute fracture of the left zygomatic arch that extends into the left temporomandibular joint. Otherwise unremarkable examination in that there is no acute intracranial hemorrhage. No acute cervical spine fracture.
--- NOTE | ~2021-07-28 | CT_ITS ---
EXAMINATION: CT HEAD WITHOUT CONTRAST CT FACE WITHOUT CONTRAST CT CERVICAL SPINE WITHOUT CONTRAST CLINICAL INFORMATION: Pain status post cells. COMPARISON: CT scan of the head 07/21/2018. TECHNIQUE: Saw Runner images were obtained. CT imaging of the head, face, and cervical spine was performed without contrast. Data was reformatted into multiplanar images at the acquisition workstation. This CT examination was performed using dose optimization techniques as appropriate, including one or more of the following: Automated exposure control, iterative reconstruction, and adjustment of technique factors (mA and/or kVp) according to patient size (this includes techniques or standardized protocols for targeted exams where dose is matched to indication/reason for exam). DLP: 1417.76 mGy-cm. FINDINGS: Head: There is swelling of the left parietal scalp. No associated calvarial fracture. There is no acute intracranial hemorrhage or abnormal extra-axial collection. No intracranial mass effect or midline shift. Lateral and third ventricles are normal. No hydrocephalus. Carter-white matter differentiation is preserved and there is no evidence of acute territorial infarct. Face: There is an acute comminuted fracture that involves the left zygomatic arch. The fracture extends through the base of the zygomatic process of the temporal bone and it extends into the left temporomandibular joint and through a few air cells within a hyperpneumatized mastoid which provides an explanation for the adjacent soft tissue gas. Partial opacification of the left mastoid air cells. Cervical spine: There is nonspecific reversal of cervical lordosis. Alignment is otherwise normal. Vertebral heights are preserved. No acute fracture. No abnormal prevertebral soft tissue swelling. Grossly no evidence of canal compromise. Uncovertebral joint spurring and conjunction with facet degenerative change causes moderate neuroforaminal encroachment at C6-C7. There is soft tissue gas within the left water treatment technician space and left parapharyngeal space. Visualized lung apices are clear. CT/CT facial bones wo con IMPRESSION: There is an acute fracture of the left zygomatic arch that extends into the left temporomandibular joint. Otherwise unremarkable examination in that there is no acute intracranial hemorrhage. No acute cervical spine fracture.
[2021-07-28 12:45] VITALS: BP 122/75; PULSE 76; O2SAT 100
[2021-07-28 13:23] VITALS: BP 128/85; PULSE 85; RESP 14; TEMP 36; O2SAT 99; BMI 26.0
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
[2021-07-28] MEDS: Ondansetron ODT 4 MG TAB.RAPDIS TRANSLINGU (14:07)
[2021-07-28] MEDS: HYDROcodone Bit/Acetam 5/325 TABLET 1 TAB PO (14:07)
[2021-07-28 16:19] VITALS: BP 117/70; PULSE 67; RESP 18; TEMP 36.6; O2SAT 100
[2021-07-28] MEDS: Piperacillin Sodium/Tazobactam 4.5 GM in 0.9 % Sodium Chloride 100 ML IV (16:27)
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
[2021-07-28 16:49] LABS: COVID-19 Test Negative (Negative)
== END 2021-07-28 17:18 | disposition short-term general hospital (02) ==
PROVIDERS: Physician Assistant Medical; Emergency Provider Emergency Medicine
DX: S02.40FA Zygomatic fracture, left side, initial encounter for closed fracture (principal); F14.90 Cocaine use, unspecified, uncomplicated; F17.210 Nicotine dependence, cigarettes, uncomplicated; M54.2 Cervicalgia; Y04.2XXA Assault by strike against or bumped into by another person, initial encounter; Y93.9 Activity, unspecified; Y92.9 Unspecified place or not applicable; Y99.9 Unspecified external cause status; Z20.822 Contact with and (suspected) exposure to COVID-19; Z79.899 Other long term (current) drug therapy; Z71.6 Tobacco abuse counseling
CPT/HCPCS: 70450; 70486; 72125; 87635; 96365; 99284; 99285; J2543

== ENCOUNTER 2021-10-17 17:59 | Emergency (ER) | payer MEDICAID, SELFPAY ==
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
[2021-10-17 18:13] VITALS: BP 129/76; PULSE 93; RESP 18; O2SAT 99; BMI 23.7
[2021-10-17 18:25] VITALS: BP 112/61; PULSE 75; RESP 16; O2SAT 99
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
[2021-10-17 18:30] LABS: MANUAL DIFF FLAG NO
[2021-10-17 18:31] LABS: Basophils Percent Auto 0.3 % (0-2); Eosinophils Absolute Auto 0.2 X10*3/uL (0.0-0.4); Hematocrit 40.7 % (42.0-52.0); Hemoglobin 14.3 g/dl (14.0-18.0); Imm Gran Abs Auto 0.04 X10*3/uL (0.00-0.03); Imm Gran Pct Auto 0.4 % (0.0-0.4); Lymphocytes Absolute Auto 1.6 X10*3/uL (1.2-4.9); Lymphocytes Percent Auto 17.2 % (20-40); Mean Corpuscular HGB Conc 35.1 g/dl (31.0-36.0); Mean Corpuscular Hemoglobin 30.9 pg (27.0-33.0); Mean Corpuscular Volume 87.9 fL (80.0-98.0); Mean Platelet Volume 9.9 fL (9.4-12.4); Monocytes Absolute Auto 0.8 X10*3/uL (0.1-1.2); Monocytes Percent Auto 8.5 % (2-11); Neutrophils Absolute Auto 6.8 x10*3/uL (2.0-8.3); Neutrophils Percent Auto 71.6 % (45-73); Platelet Count 363 X10*3/uL (160-400); Red Blood Count 4.63 X10*6/uL (4.60-5.80); Red Cell Distribution Width 13.5 % (11.0-16.0); White Blood Count 9.5 X10*3/uL (4.8-10.8)
--- NOTE | 2021-10-17 18:35 | PC.NURSE ---
Allan Condon contact [phone]
[2021-10-17] MEDS: 0.9 % Sodium Chloride 500 ML IV (18:40)
[2021-10-17 18:42] LABS: INTERNATIONAL NORM RATIO 1.2 (0.9-1.1); Prothrombin Time 14.4 SEC (10.0-13.1)
[2021-10-17 18:46] LABS: COVID-19 Test Negative (Negative)
[2021-10-17 18:50] LABS: Alanine Aminotransferase 35 U/L (0-40); Alkaline Phosphatase 81 U/L (39-117); Anion Gap 13 (12-20); Aspartate Amino Transferase 27 U/L (5-37); Bilirubin Total 0.6 mg/dL (0.0-1.0); Blood Urea Nitrogen 9 mg/dL (9-16); Carbon Dioxide 25 mmol/L (22-29); Chloride 111 mmol/L (96-108); Creatinine Clr Calc Pharmacy 111.2; Estimated Glomerular Filt Rate > 60; Ethanol < 10 mg/dL; Glucose Random 101 mg/dL (60-115); Magnesium 1.9 mg/dL (1.6-2.6); Potassium 3.8 mmol/L (3.3-5.1); Sodium 145 mmol/L (135-145); Total Protein 6.7 g/dL (6.5-8.0)
--- NOTE | 2021-10-17 18:55 | PC.NURSE ---
This US/PCT called [facility] Transfer line at 181 per [facility]. At 182 pt was accepted by ,ER to ER,At 183 Action was called for a stat ALS Trauma transfer per [facility]. EMS arrived at 183.
== END 2021-10-17 18:56 | disposition short-term general hospital (02) ==
PROVIDERS: Physician Assistant; Emergency Provider Emergency Medicine
DX: S21.119A Laceration without foreign body of unspecified front wall of thorax without penetration into thoracic cavity, initial encounter (principal); R45.1 Restlessness and agitation; R07.89 Other chest pain; F14.90 Cocaine use, unspecified, uncomplicated; R40.2410 Glasgow coma scale score 13-15, unspecified time; R10.30 Lower abdominal pain, unspecified; X99.1XXA Assault by knife, initial encounter; Y93.9 Activity, unspecified; Y92.410 Unspecified street and highway as the place of occurrence of the external cause; Y99.9 Unspecified external cause status; Z20.822 Contact with and (suspected) exposure to COVID-19; Z79.899 Other long term (current) drug therapy
CPT/HCPCS: 71250; 74176; 80053; 82077; 83735; 85025; 85610; 86850; 86900; 86901; 87635; 93005; 99285; J0690